=== PATIENT | female | born 1940 | race Caucasian/White ===

== ENCOUNTER 2016-08-04 10:21 | Emergency (ER) | payer MEDICARE ==
[~2016-08-04 10:21] MED LIST: ASCO100089 PO; ATEN25TA PO; CALC500T61 PO; CHOL2000 PO; CRAN1CAP3 PO; ENZY1CAP PO; FEXO-43 PO; FLUT16SP2 NS; HYDR-3825 PO; INSU100I13 SUBQ; KTC2C15 TP; LACT1CAP65 PO; MAGN27TA2 PO; METF500T PO; MULT-36 PO; NYST15CR TP; OMEP20CA11 PO; SUCR1TAB PO; VITA1TAB17 PO
[2016-08-04 10:23] VITALS: BP 142/92; PULSE 75; RESP 16; O2SAT 99
--- NOTE | 2016-08-04 10:59 | ED.REPORT ---
HPI-General Illness Date of Service Aug 04, 2016 ED Provider: Divine Hutton MD 76 year old female presents to the ER brought in by her granddaughter due to difficulty thinking and concentrating over the past week. Currently she also complains of headache. Associated symptoms include weight loss over several months, decreased appetite, decreased fluid intake, "bladder and bowel issues", insomnia in recent weeks, and depression. She reports stress due to financial issues and excessive spending. Patient denies suicidal ideation, fever, chills, and recent illness. Granddaughter reports that the patient seems to have months- long waves of depression that alternate with periods of "doing really well", with lots of energy, spending lots of money, going out regularly, making plans for the future, and socializing. Her was recently placed in a care home. Medications include but are not limited to Prozac, Metformin, and daily multivitamins. Nursing Notes Stated Complaint: BODY PAIN/EMOTIONS/MEMORY LOSS Chief Complaint: General Complaint Nursing Notes Reviewed: Yes Allergies: Coded Allergies: citalopram (Verified Allergy, Severe, SOB, DISORDERED THOUGHTS, 08/03/14) sertraline (Verified Allergy, Intermediate, STUTTERING, 08/03/14) Sulfa (Sulfonamide Antibiotics) (Verified Allergy, Unknown, 07/24/14) nitrofurantoin (Verified Allergy, Unknown, 07/24/14) Scheduled Ascorbic Acid (Vitamin C) 1,000 Mg Tab.chew 1 TAB PO DAILY Atenolol (Atenolol) 25 Mg Tablet 25 MG PO DAILY Calcium Carbonate (Calcium) 500 Mg Tablet 500 MG PO BID Cholecalciferol (Vitamin D3) (Vitamin D) 2,000 Unit Capsule 2,000 UNIT PO DAILY Cranberry Conc/Ascorbic Acid (Cranberry 12,600 mg Softgel) 1 Each Capsule 1 EACH PO DAILY Enzymes,Digestive (Enzyme Digest) 1 Each Capsule 1 EACH PO TIDWM Fexofenadine (Aller-Fex) 180 Mg Tablet 180 MG PO DAILY Fluticasone Propionate (Flonase Nasal) 16 Gm Plummer.susp 2 SPRAYS NS DAILY Insulin Glargine (Lantus U100 Solostar Insulin Pen) 100 Unit/1 Ml Insuln.pen 40 UNIT SUBQ QPM-INSULIN Ketoconazole (Ketoconazole) 15 Gm Cream..g. 15 GM TP BID Lactobacillus Acidophilus (Probiotic) 1 Each Capsule 1 EACH PO DAILY Magnesium Amino Acid Chelate (Magnesium) 27 Mg Tablet 1 TAB PO DAILY Metformin (Glucophage) 500 Mg Tablet 500 MG PO BIDWM Multivitamin (Daily Multiple Vitamin) 1 Each Tablet 1 EACH PO DAILY Nystatin/Triamcin (Nystatin-Triamcinolone Cream) 15 Gm Cream..g. 15 GM TP BID Omeprazole (Omeprazole) 20 Mg Capsule.dr 20 MG PO BID Sucralfate (Sucralfate) 1 Gm Tablet 1 GM PO QID Vitamin B Complex (Vitamin B Complex) 1 Each Tablet 1 EACH PO DAILY Scheduled PRN Hydrocodone-Acetaminophen 7.5-325 mg (Hydrocodone-Acetaminophen 7.5-325 mg) 1 Each Tablet 1 EACH PO Q6 PRN PRN For Pain General Time Seen by MD: 10:37 Chief Complaint Other (Difficulty Thinking/Concentrating) Hx Obtained From: Patient, Other family... 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 Heart murmur with reported "irregular hear beat" Diverticulitis Reports: Diabetes mellitus Past Surgical History Hernia in stomach with stomach overhang removal Uterus repair with rectal repair Reports: Appendectomy, Cholecystectomy Smoking History Former Smoker Social History Other Social History: Good social support Ambulatory Status Independent Review of Systems Full Review of Systems Constitutional: Reports: Fatigue, Malaise, Recent wt loss, Denies: Chills, Fever Respiratory: Denies: Non-productive cough Cardiovascular: Denies: Chest pain GI: Denies: Nausea, Vomiting Neurologic: Reports: Headache Psychiatric: Reports: Anxiety, Depression, Insomnia, Stress, Denies: Hallucinations, auditory, Hallucinations, visual, Homicidal ideation , Suicidal ideation Complete sys rev & neg: except as marked. Physical Exam Vital Signs Vital Signs Date Time Temp Pulse Resp B/P Pulse Ox O2 Delivery O2 Flow Rate FiO2 08/04/16 10:23 36.1 75 16 142/92 99 Initial VS: Reviewed Head / Eyes: Atraumatic, Normocephalic Neck: Supple, Non-tender, Full range of motion Abdomen / GI: Soft, Non-tender, No guarding, No rebound, No distention Extremities: Vascular intact, Neuro intact, No swelling, No tenderness Skin: Warm, Dry, No cyanosis Neurologic: Alert, Oriented, Nonfocal General/Constitutional: Awake, Alert, Well developed, Well nourished Respiratory / Chest: Breath sounds NL, No respiratory distress, No rales, No rhonchi, No wheezing Cardiovascular: Heart rate NL, Regular rhythm Heart Sounds / Murmur: Positive: Systolic murmur present.. (III/) Psychiatric: Not suicidal, Not homicidal, Cognitive function NL Abnormal Mood/Affect: Positive: Flat affect Poor eye contact. Interpretation & Diagnostics Lab Results Interpretation Result Diagram: 08/04/16 1130 08/04/16 1130 Test 08/04/16 11:30 White Blood Count 4.2th/mm3 (3.8-10.1) Red Blood Count 4.59mil/mm3 (3.90-5.20) Hemoglobin 14.5g/dL (12.0-15.6) Hematocrit 44.0% (35.0-46.0) Mean Corpuscular Volume 95.9fL (81-100) Mean Corpuscular Hemoglobin 31.6pg (27.0-35.0) Mean Corpuscular Hemoglobin Concent 33.0% (32.0-37.0) Red Cell Distribution Width 13.2% (12.3-15.4) Platelet Count 61bil/L (150-400) Neutrophils (%) (Auto) 70.2% (40-74) Lymphocytes (%) (Auto) 21.4% (14-46) Monocytes (%) (Auto) 6.9% (4-12) Eosinophils (%) (Auto) 1.0% (0-5) Basophils (%) (Auto) 0.5% (0-3) Sodium Level 139mEq/L (134-144) Potassium Level 4.2mEq/L (3.5-5.2) Chloride Level 101mEq/L (97-108) Carbon Dioxide Level 22mmol/L (18-29) Blood Urea Nitrogen 15mg/dL (8-27) Creatinine 0.46mg/dL (0.57-1.00) Estimat Glomerular Filtration Rate 190mL/min (>59) Glucose Level 178mg/dL (60-99) Calcium Level 9.6mg/dL (8.5-10.1) Total Bilirubin 0.7mg/dL (0.0-1.2) Aspartate Amino Transf (AST/SGOT) 31U/L (0-50) Alanine Aminotransferase (ALT/SGPT) 27U/L (0-32) Alkaline Phosphatase 65U/L (25-165) Total Protein 7.2g/dL (6.4-8.4) Albumin 4.4g/dL (3.4-5.0) Thyroid Stimulating Hormone (TSH) 1.600uIU/mL (0.450-4.500) Alcohols < 10mg/dL (0-10) Re-Eval/Medical Decision Source of Hx: Old records Time of Eval: 12:29 Re-Evaluation/Progress Note: Unwilling to consider admission or new medications. Will communicate this with PCP and send home with multiple resources for psychiatric care. Time of Eval: 12:41 Re-Evaluation/Progress Note: Discussed lab results and plan to discharge. Patient is amenable to the plan. Return precautions given. All other questions addressed. Counseled Regarding: Diagnosis, Lab results, Need for follow-up, When/why to return to ED Discharge & Departure Primary Impression: Depression Additional Impressions: Malaise Fatigue Impairment of cognitive function Disposition: Home Discharge Condition All VS Reviewed: Yes Condition: Stable Patient Instructions: Bipolar Disorder (DC) Additional Instructions: I'm sorry that you are feeling so down right now. Your labs were reassuring. I listening to your story, particularly the pattern of the ups with lots of money being spent followed by the downs, I believe you may be bipolar. If that is the case, you may find that medications beside (sometime in addition to) the prozac are more helpful for you. I will share my concerns and findings with Dr Muñoz. Please schedule an apt with her in the near future to follow up. If you are feeling that you need to hurt yourself or anyone else, please return to the ER. Referrals: Jevon Muñoz MD (PCP) Annemarieibjoanie Attestation Portions of this note were transcribed by Mis Woodruff. I, Dr. Hutton, personally performed the history, physical exam and medical decision-making; I reviewed and confirmed the accuracy of the information in the transcribed note. Signed by: Eulogio Genao, 08/04/2016 at 12:43 copies to: Bal,Divine Penn MD, MD Aug 04, 2016 10:59 MIS WOODRUFF Aug 04, 2016 11:02
[2016-08-04 11:47] LABS: BASOPHILS % (AUTO) 0.5 % (0-3)
[2016-08-04 11:56] LABS: MONOCYTES % (AUTO) 6.9 % (4-12); Mean Corpuscular Hemoglobin 31.6 pg (27.0-35.0); Mean Corpuscular Volume 95.9 fL (81-100); NEUTROPHILS % (AUTO) 70.2 % (40-74); Platelet Count 61 bil/L (150-400)
== END 2016-08-04 13:15 | disposition home or self-care (01) ==
LOC: SED 10:21
DX: F32.9 Major depressive disorder, single episode, unspecified (principal); R53.81 Other malaise; R53.83 Other fatigue; G31.84 Mild cognitive impairment of uncertain or unknown etiology; E11.9 Type 2 diabetes mellitus without complications; Z87.891 Personal history of nicotine dependence; Z79.4 Long term (current) use of insulin; Z79.84 Long term (current) use of oral hypoglycemic drugs; Z79.51 Long term (current) use of inhaled steroids; Z88.8 Allergy status to other drugs, medicaments and biological substances; Z88.2 Allergy status to sulfonamides

== ENCOUNTER 2017-01-06 21:45 | Inpatient (IN) | payer MEDICARE ==
[~2017-01-06] VITALS: Ht 149.9 cm; Wt 71.6 kg
[2017-01-06 21:52] VITALS: BP 124/57; PULSE 97; RESP 12; O2SAT 95
[2017-01-06 22:18] LABS: BASOPHILS % (AUTO) 0.3 % (0-3); EOSINOPHILS % (AUTO) 1.7 % (0-5); MONOCYTES % (AUTO) 7.7 % (4-12); Mean Corpuscular Hemoglobin 32.7 pg (27.0-35.0); Mean Corpuscular Volume 97.7 fL (81-100); NEUTROPHILS % (AUTO) 68.1 % (40-74); Platelet Count 96 bil/L (150-400)
[2017-01-06 23:37] LABS: INR 0.99 ratio
[2017-01-06] MEDS: HYDROmorphone 0.5 mg/0.5 mL iSecure Syringe IVPUSH PRN (23:48)
[2017-01-06] MEDS ORDERED: Insulin GLARgine 100 Unit/mL Syringe SUBQ ONE (23:50)
[2017-01-07] VITALS (11 sets, daily range): BP systolic 129–165; BP diastolic 73–93; PULSE 80–120; RESP 16–20; O2SAT 95–97
--- NOTE | 2017-01-07 00:37 | ED.REPORT ---
HPI-Extremity Problem Lower Date of Service Jan 07, 2017 ED Provider: Reinaldo Mccarty DO The pt is a 76 y/o female w/ a hx of a L hip fx, DM, arthritis, fibromyalgia, and osteoporosis presenting to the ED via EMS due to a L hip injury. The pt had "a couple" drinks, was walking and fell, and landed and hurt her L hip. Denies any dizziness, nausea, or knee pain. She did not hit her head, and did not lose consciousness. Nursing Notes Stated Complaint: GROUND LEVEL FALL Chief Complaint: L hip injury Nursing Notes Reviewed: Yes Allergies: Coded Allergies: citalopram (Verified Allergy, Severe, SOB, DISORDERED THOUGHTS, 01/06/17) sertraline (Verified Allergy, Intermediate, STUTTERING, 01/06/17) Sulfa (Sulfonamide Antibiotics) (Verified Allergy, Unknown, 01/06/17) nitrofurantoin (Verified Allergy, Unknown, 01/06/17) Scheduled Ascorbate Calcium (Vitamin C) 500 Mg Tablet 2 TAB PO DAILY Calcium Carbonate (Tums) 500 Mg Tab.chew 500 MG PO DAILY Cholecalciferol (Vitamin D3) (Vitamin D3) 2,000 Unit Tablet 2,000 UNIT PO DAILY Cranberry Conc/Ascorbic Acid (Cranberry 12,600 mg Softgel) 1 Each Capsule 1 EACH PO DAILY Fexofenadine (Aller-Fex) 180 Mg Tablet 180 MG PO DAILY Fluticasone Propionate (Fluticasone Propionate Nasal) 16 Gm Willard.susp 1 SPRAY NS DAILY Insulin Glargine (Lantus U100 Solostar Insulin Pen) 100 Unit/1 Ml Insuln.pen 40 UNIT SUBQ QPM-INSULIN Ketoconazole (Ketoconazole) 15 Gm Cream..g. 15 GM TP BID Lactobacillus Acidophilus (Probiotic) 1 Each Capsule 1 EACH PO DAILY Magnesium Amino Acid Chelate (Magnesium) 27 Mg Tablet 1 TAB PO DAILY Metformin (Glucophage) 500 Mg Tablet 500 MG PO DAILY Multivitamin (Multivitamins) 1 Each Capsule 1 EACH PO DAILY Nystatin/Triamcin (Nystatin-Triamcinolone Cream) 15 Gm Cream..g. 15 GM TP BID Omeprazole (Omeprazole) 20 Mg Capsule.dr 20 MG PO BID Pepsin/Judith/Ox Bile/Lockhart/Bet/Pap (Enzymatic Digestant ER Tablet) 1 Each Tablet.er 1 EACH PO TIDWM Sucralfate (Sucralfate) 1 Gm Tablet 1 GM PO QID Vit B Comp/C/FA/Iron/Vit E (Vitamin B Complex Tablet) 1 Each Tablet 1 EACH PO DAILY Scheduled PRN Hydrocodone-Acetaminophen 7.5-325 mg (Hydrocodone-Acetaminophen 7.5-325 mg) 1 Each Tablet 1 EACH PO Q6 PRN PRN For Pain General Time Seen by MD: 23:04 Chief Complaint Hip injury left Hx Obtained From: Patient, EMS Arrived By: Walk-in Onset Occurred: Just prior to arrival Symptom Duration: Since onset Recent Healthcare: No recent hospitalization, Recent doctor visit Similar Sx Previous: Yes Past Medical History Past Medical History UTI Hydal Hernia Fibromyalgia Arthritis Osteoporosis 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 Heart murmur with reported "irregular hear beat" Diverticulitis Reports: Diabetes mellitus Past Surgical History Hernia in stomach with stomach overhang removal Uterus repair with rectal repair L hip fx Reports: Appendectomy, Cholecystectomy Smoking History Former Smoker Social History Other Social History: Good social support Ambulatory Status Independent Review of Systems Denies knee pain; Musculoskeletal: Reports: Joint pain (L hip; ) Neurologic: Denies: Dizziness GI: Denies: Nausea Physical Exam Initial Vital Signs Vital Signs (First) Date Time Temp Pulse Resp B/P Pulse Ox O2 Delivery O2 Flow Rate FiO2 01/06/17 21:52 36.5 97 12 124/57 95 Room Air Initial VS: Reviewed General/Constitutional: Well-developed, Well-nourished Head / Eyes: Atraumatic, Normocephalic, PERRL ENT: Mucous membranes moist, Conjunctiva normal, No scleral icterus Neck: Supple, Non-tender, Full range of motion Respiratory: Breath sounds normal, Clear to auscultation, No respiratory distress Skin: Warm, Dry, No cyanosis Neurologic: Alert, Oriented, Nonfocal Psychiatric: Mood/affect normal, Behavior normal, Normal thought content Lower Extremity / Pelvis / MS: Neurologic intact, Vascular intact L leg shortened and externally rotated; Ankle / Foot: Atraumatic, Inspection NL, Full range of motion Cardiovascular: Regular rhythm, Heart sounds NL Heart Rate / Rhythm: Positive: Tachycardia Interpretation & Diagnostics CT left femur Impression: Comminuted intertrochanteric femur fracture This report was transmitted to the emergency room at 01/07/17 1:33:53 AM PDT. Lab Results Interpretation Result Diagram: 01/08/17 1815 01/08/17 0512 Test 01/06/17 22:15 Prothrombin Time 10.6sec (8.1-12.5) Prothromb Time International Ratio 0.99ratio Activated Partial Thromboplast Time 24.1sec (22.8-33.0) Alcohols < 10mg/dL (0-10) Laboratory Tests 72 Hours Test 01/06/17 22:15 White Blood Count 6.5th/mm3 (3.8-10.1) Red Blood Count 3.92mil/mm3 (3.90-5.20) Hemoglobin 12.8g/dL (12.0-15.6) Hematocrit 38.3% (35.0-46.0) Mean Corpuscular Volume 97.7fL (81-100) Mean Corpuscular Hemoglobin 32.7pg (27.0-35.0) Mean Corpuscular Hemoglobin Concent 33.4% (32.0-37.0) Red Cell Distribution Width 13.8% (12.3-15.4) Platelet Count 96bil/L (150-400) Neutrophils (%) (Auto) 68.1% (40-74) Lymphocytes (%) (Auto) 21.6% (14-46) Monocytes (%) (Auto) 7.7% (4-12) Eosinophils (%) (Auto) 1.7% (0-5) Basophils (%) (Auto) 0.3% (0-3) Prothrombin Time 10.6sec (8.1-12.5) Prothromb Time International Ratio 0.99ratio Activated Partial Thromboplast Time 24.1sec (22.8-33.0) Sodium Level 139mEq/L (134-144) Potassium Level 3.8mEq/L (3.5-5.2) Chloride Level 99mEq/L (97-108) Carbon Dioxide Level 24mmol/L (18-29) Blood Urea Nitrogen 18mg/dL (8-27) Creatinine 0.43mg/dL (0.57-1.00) Estimat Glomerular Filtration Rate 205mL/min (>59) Glucose Level 208mg/dL (60-99) Calcium Level 9.3mg/dL (8.5-10.1) Alcohols < 10mg/dL (0-10) ECG Interpretation ECG Interpretation: Sinus tachy with prob LVH Rate 105 Time: 23:41 Interpreted by: ED physician X-Ray Chest Interpretation Chest Xray Interpretation: No acute abnormality Interpretation / Wet Read by: Wet read ED physician X-Ray Interpretation X-Ray Ordered: Femur left Interpretation / Wet Read by: Wet read ED physician Interpretation: Comminuted fracture Re-Eval/Medical Decision Med Decision/Clinical Course 76-year-old female with a history of osteoporosis and intermittent alcohol use presents after a fall today while visiting her , having had a few drinks today, landing on her left side with immediate pain and inability to ambulate. Alcohol level is 0 here. X-ray followed by CT scan shows a comminuted intertrochanteric hip fracture on left side. Patient did not hit her head and denies loss of consciousness. I spoke with Dr. Tran in orthopedics will see the patient in the morning. Patient will be admitted to the hospital service for preoperative clearance and management of her current chronic medical issues , including diabetes. Pain was controlled here with Dilaudid. Source of Hx: Old records Re-Evaluation/Progress #1: Time of Eval: 23:44 Re-Evaluation/Progress Note: Told the pt plan to call surgeon. She prefers Dr. Overton Re-Evaluation/Progress #2: Time of Eval: 01:21 Re-Evaluation/Progress Note: Pt rechecked. Informed pt of need for admission. Pt understands and agrees with plan for admission. All questions addressed. Consultation #1: Referral / Consult Name: Luciano Tran MD Consulted With: Orthopedic Call Returned at: 00:24 Note: Spoke w/ Dr. Tran who will see the pt tomorrow. Consultation #2: Referral / Consult Name: Suyapa Parada DO Consulted With: Hospitalist Call Returned at: 00:32 It Coordinator: Will see patient, Agrees with eval, Agrees with plan, Accepts admit Counseled Regarding: Diagnosis, Lab results, Need for admission Discharge & Departure Impression: Primary Impression: Hip fracture, left Encounter type: initial encounter Fracture type: closed Qualified Code: S72.002A - Fracture of unspecified part of neck of left femur, initial encounter for closed fracture Additional Impressions: Fall from ground level Thrombocytopenia Osteoporosis Osteoporosis type: age-related Presence of current pathological fracture: with current pathological fracture Encounter type: initial encounter Qualified Code: M80.00XA - Age-related osteoporosis with current pathological fracture, unspecified site, initial encounter for fracture Hyperglycemia Disposition: ADMITTED TO HOSPITAL Discharge Condition All VS Reviewed: Yes Condition: Stable Referrals: Jevon Muñoz MD (PCP) Scribe Attestation Portions of this note were transcribed by Eddie Barillas. I, Dr. Mccarty personally performed the history, physical exam and medical decision-making; I reviewed and confirmed the accuracy of the information in the transcribed note. copies to: Jevon Muñoz MD, Gary R DO Jan 07, 2017 00:37 Crystal Xiao Jan 07, 2017 00:40 Eddie Barillas Jan 07, 2017 01:15
[2017-01-07] MEDS: HYDROmorphone 0.5 mg/0.5 mL iSecure Syringe IVPUSH PRN ×6 (01:50→23:05)
[2017-01-07] MEDS ORDERED: Polyethylene Glycol (PEG) 17 Gm Powder PO PRN (01:55)
[2017-01-07] MEDS ORDERED: Alum-Mag Hydrox-Simeth 30 mL Suspension PO PRN (01:55)
[2017-01-07] MEDS ORDERED: Ondansetron 2 mg/mL 2 mL Inj IVPUSH PRN (01:55)
--- NOTE | 2017-01-07 02:40 | PCM.HPMED ---
Subjective Date of Service Jan 07, 2017 Primary Provider: Admitting Physician: Primary Care Physician: Jevon Muñoz MD Attending Physician: Chief Complaint: Left hip pain History of Present Illness: Patient is a 76-year-old female with a history of osteoporosis, arthritis, left hip fracture, and fibromyalgia who presents with left hip pain following a ground-level fall. She currently lives in an adult living facility and was visiting her today when she slipped and fell on the pavement and landed on her left hip. She reports severe left hip pain but denies any other symptoms. She denies any head injury or loss of consciousness. She denies any dizziness or weakness directly prior to the fall. She states she has a couple of drinks every 1-2 days and had 2 drinks today, but states that she does not drink heavily on a regular basis. She denies any numbness or tingling, dizziness, nausea or vomiting. In the ED, heart rate was 109, respiratory rate 20, BP 141/81. Platelets 96, glucose 208. Alcohol level <10. Left hip x-ray noted a left hip fracture. Review of Systems: Comprehensive review of systems conducted and was negative except for the pertinent positives listed above. Allergies Coded Allergies: citalopram (Verified Allergy, Severe, SOB, DISORDERED THOUGHTS, 01/06/17) sertraline (Verified Allergy, Intermediate, STUTTERING, 01/06/17) Sulfa (Sulfonamide Antibiotics) (Verified Allergy, Unknown, 01/06/17) nitrofurantoin (Verified Allergy, Unknown, 01/06/17) Home Medications Atenolol 25 mg daily Hydrocodone/APAP 7.5/325 q6h PRN Lantus 40 U qhs SQ Ketoconazole cream 15 g BID Metformin 500 mg BID Omeprazole 20 mg BID Sucralfate 1 g QID Calcium carbonate 500 mg BID Vit D3 2000 U daily PMH UTI Hiatall Hernia Fibromyalgia Arthritis Osteoporosis Oral leukoplakia Heart murmur with reported "irregular hear beat" Diverticulitis Diabetes mellitus Surgical History Hernia in stomach with stomach overhang removal Uterus repair with rectal repair Appendectomy Cholecystectomy Family History Mother: Osteoporosis, of [place] in her 60s Social History Hx Alcohol Use: Yes Hx Tobacco Use: No Smoking Status: Former Smoker Exam Vital Signs Vital Sign - Last Date Time Temp Pulse Resp B/P Pulse Ox O2 Delivery O2 Flow Rate FiO2 01/06/17 21:52 36.5 97 12 124/57 95 Room Air Exam General: Alert, somnolent but arousable, No acute distress Head: Normocephalic, atraumatic. External ears normal. Eyes: PERRLA, EOMI. Anicteric sclerae. Mouth: Mouth normal, Mucous membranes moist/pink Neck: Neck supple with full range of motion. Chest& Lungs: Clear to auscultation bilaterally with no crackles, wheezes, or rhonchi. Cardiovascular: Regular rate/rhythm, Normal S1, Normal S2, No murmurs/rubs/ gallops Abdomen: Non-tender, Non-distended, No masses, Normoactive bowel tones, Soft Musculoskeletal: Left hip tenderness Skin: Rash at left groin Extremities: No cyanosis/clubbing/edema bilaterally Neurological: Grossly neurologically intact. Normal speech Lab and Diagnostics Result Diagram: 01/06/17221401/06/172214 Assessment & Plan Patient is a 76-year-old female with a history of osteoporosis, arthritis, left hip fracture, and fibromyalgia who presents with left hip pain following a ground-level fall. Admitted for left hip fracture. Left hip fracture, acute. Present on admission. - In the context of a history of osteoporosis and prior left hip fracture. Dr. Tran is aware and will see pt in the AM. Patient was ambulatory at baseline. She has a history of diabetes mellitus and a heart murmur. EKG was normal. Chest x-ray is normal. Nuclear stress test in 2008 was normal. She is likely low to low-moderate cardiovascular risk. Appropriate to proceed with surgery at this time. - Dr. Tran of orthopedic surgery is following. We appreciate her expertise. - Dilaudid 0.5 mg q6h PRN - DVT prophylaxis: SCDs. May transition to heparin following surgery. Ground level fall. - Per patient history this appears to be a mechanical ground-level fall. No head trauma, or history suspicious for syncope. - Physical therapy ordered Osteoporosis, chronic. - In the context of 2 left hip fractures. She will likely require further outpatient workup and management. - Continue vitamin D and calcium - Outpatient follow up Diabetes mellitus type 2 - BG 200 on admission. HbA1c 6.1 on 11/24/16. - Lantus 20 U (half dose) while NPO - Hold metformin Thrombocytopenia, chronic - Pt has at least 6 year history of platelets in 90s-100s based on EMR. - Continue to monitor GERD - Protonix 20 mg daily - Bowel regimen as needed - Antiemetic as needed Patient is admitted under inpatient status with expected length of stay greater than 2 midnights due to severity of presenting symptoms, risk of adverse event, and complexity of treatment plan. Attending Statement The patient was seen and examined together with house staff on 01/07/2017 and I agree with the history, exam and plan as outlined in the note above. Ronan Saleh Jan 07, 2017 00:37 Suyapa Parada DO Jan 07, 2017 06:49
[2017-01-07] MEDS ORDERED: CALC500T9 PO (03:17)
[2017-01-07] MEDS ORDERED: CHOL200025 PO (03:17)
[2017-01-07] MEDS ORDERED: FLUT16SP NS (03:23)
[2017-01-07] MEDS ORDERED: VIT1TABL83 PO (03:23)
[2017-01-07] MEDS ORDERED: MULT1CAP33 PO (03:23)
[2017-01-07] MEDS ORDERED: ASCO-294 PO (03:23)
[2017-01-07] MEDS ORDERED: PEPS1TAB11 PO (03:23)
--- NOTE | 2017-01-07 03:24 | NUR ---
Admission Pt interviewed at the bedside. Admission assessment, screening, and Med-Rec completed.
[2017-01-07 03:25] LABS: APPEARANCE,URINE HAZY (CLEAR,HAZY); COLOR,URINE YELLOW (YELLOW); OCCULT BLOOD,URINE NEGATIVE (NEGATIVE); UROBILINOGEN,URINE NORMAL (NORMAL)
--- NOTE | 2017-01-07 06:04 | NUR ---
Blood Sugar Per report from ER nurse patient blood sugar 299, 20 units of Lantus given. Recheck at 0401 patient at 309, MD anaya, recheck at 0603 patient blood glucose at 292.
--- NOTE | 2017-01-07 06:06 | NUR ---
Shift: Patient pain managed with IV pain medications. Resting with eyes closed, chest rising and falling. NPO status, HR 120, no fluids running blood glucose at 309, paged. No tele. Bed in lowest and locked position, call light within reach, will continue to monitor.
[2017-01-07 06:14] LABS: BASOPHILS % (AUTO) 0.2 % (0-3); EOSINOPHILS % (AUTO) 0.2 % (0-5); MONOCYTES % (AUTO) 6.5 % (4-12); Mean Corpuscular Hemoglobin 31.9 pg (27.0-35.0); Mean Corpuscular Volume 97.8 fL (81-100); NEUTROPHILS % (AUTO) 81.1 % (40-74); Platelet Count 67 bil/L (150-400)
--- NOTE | 2017-01-07 07:29 | DRSVH ---
PROCEDURE: X-RAY LEFT HIP COMPLETE, MINIMUM TWO VIEWS ([id number]) INDICATIONS: fall TECHNIQUE: 2 views of the hip were acquired. COMPARISON: [facility], CR, XR PELVIS 1 OR 2VW, 04/06/2015, 14:06. FINDINGS: Bones: There is a moderately displaced comminuted intertrochanteric left hip fracture. No suspicious bony lesions. The visualized pelvic ring appears intact. Soft tissues: No suspicious soft tissue calcifications or masses. IMPRESSION: Left hip fracture as above. Dictated by: Reyna Gracia M.D. on 01/07/2017 at 7:27 Approved by: Reyna Gracia M.D. on 01/07/2017 at 7:27
--- NOTE | 2017-01-07 07:32 | DRSVH ---
PROCEDURE: X-RAY CHEST ONE VIEW, PORTABLE ([id number]) INDICATIONS: preop, fall TECHNIQUE: One view of the chest was acquired. COMPARISON: [facility], , CHEST 2VW, 07/17/2012, 11:42. FINDINGS: Surgical changes and devices: None. Lungs and pleura: No pleural effusions or pneumothorax. Lungs are clear. Mediastinum: Mediastinal contours appear normal. Heart size is normal. Bones and chest wall: No suspicious bony lesions. Overlying soft tissues appear unremarkable. IMPRESSION: No acute process. Dictated by: Reyna Gracia M.D. on 01/07/2017 at 7:30 Approved by: Reyna Gracia M.D. on 01/07/2017 at 7:30
--- NOTE | 2017-01-07 08:08 | DRSVH ---
PROCEDURE: CT LOWER EXTREMITY LEFT WITHOUT CONTRAST INDICATIONS: L hip fx TECHNIQUE: Noncontrast 3 mm axial sections acquired through the bony pelvis. Additional 3 mm axial sections acq uired through the symptomatic hip joint, with coronal and sagittal reformats. COMPARISON: None. FINDINGS: Image quality: Excellent. Bones: There is a moderately displaced and moderately angulated comminuted fracture of the left inter trochanteric femur. Soft tissues: Visualized bowel loops grossly unremarkable. No focal fluid collections. IMPRESSION: Intertrochanteric hip fracture. Concordant with preliminary interpretation. Dictated by: Reyna Gracia M.D. on 01/07/2017 at 8:05 Approved by: Reyna Gracia M.D. on 01/07/2017 at 8:06
[2017-01-07] MEDS: Calcium Carbonate (Oyster Shell) 500 mg Tablet PO SCH ×2 (08:34→20:57)
[2017-01-07] MEDS: Pantoprazole 20 mg ER24 Tablet PO SCH (08:35)
[2017-01-07] MEDS: Insulin Human REGular 300 Unit/3 mL Inj SUBQ SCH ×3 (08:37→21:03)
--- NOTE | 2017-01-07 09:59 | DRSVH ---
PROCEDURE: X-RAY LEFT FEMUR, TWO VIEWS ([id number]) INDICATIONS: HIP FRACTURE TECHNIQUE: 2 views of the femur were acquired. COMPARISON: [facility], CR, XR HIP 2VW LT, 01/06/2017, 22:13. FINDINGS: Bones: A moderately displaced comminuted intertrochanteric fracture present , as before. No suspiciou s bony lesions. Soft tissues: No suspicious soft tissue calcifications or masses. IMPRESSION: No change in left intertrochanteric hip fracture. Dictated by: Reyna Gracia M.D. on 01/07/2017 at 9:57 Approved by: Reyna Gracia M.D. on 01/07/2017 at 9:58
--- NOTE | 2017-01-07 10:00 | DRSVH ---
PROCEDURE: X-RAY PELVIS W/LAT HIP (LT) ([id number]) INDICATIONS: hip fracture TECHNIQUE: AP pelvis with lateral view(s) of the left hip(s). COMPARISON: [facility], , XR HIP 2VW LT, 01/06/2017, 22:13. FINDINGS: Bones: A moderately displaced comminuted left intertrochanteric hip fracture is present , as before. Pelvic ring appears intact. No suspicious bony lesions. Soft tissues: The visualized bowel gas pattern is normal. No suspicious soft tissue calcifications. IMPRESSION: No change in left intertrochanteric hip fracture. Dictated by: Reyna Gracia M.D. on 01/07/2017 at 9:58 Approved by: Reyna Gracia M.D. on 01/07/2017 at 9:59
--- NOTE | 2017-01-07 10:34 | CONS ---
[address] [address] CONSULTATION REPORT PATIENT: JASON VEGA : 1940 MR#: [id number] ADMIT: 01/07/2017 JOB ID: [id number] DATE OF SERVICE: 01/07/2017 CPT CODE: In-house consultation 10952-50 with decision for surgery. CHIEF COMPLAINT: A 76-year-old female with history of insulin-dependent diabetes and osteoporosis who was [facility] last night, tripped on the cement walkway, and sustained a comminuted left intertrochanteric femoral fracture. There was no obvious loss of consciousness. ALLERGIES: Include: 1. CITALOPRAM. 2. SERTRALINE. 3. SULFA. 4. NITROFURANTOIN. CURRENT MEDICATIONS: Include: 1. Atenolol. 2. Hydrocodone. 3. Lantus insulin. 4. Ketoconazole. 5. Metformin. 6. Omeprazole. 7. Sulcralfate. 8. Calcium carbonate. 9. Vitamin D3. PAST MEDICAL HISTORY: Medical history positive for UTI, hiatal hernia, fibromyalgia, arthritis, osteoporosis, oral leukoplakia, history of cardiac murmur reported in the past, an irregular heart beat, diverticulitis, and insulin-dependent diabetes. Prior surgeries she has had some type of hiatal hernia surgery, uterine repair with rectal repair, appendectomy, and cholecystectomy. FAMILY HISTORY: Positive for osteoporosis and DC. SOCIAL HISTORY: The patient does drink. She was a former smoker. REVIEW OF SYSTEMS: HEENT: No significant change in hearing or vision. Respiratory no shortness of breath. Cardiovascular no acute chest pain. GI no nausea, vomiting. no dysuria. Musculoskeletal left hip pain with intertrochanteric femoral fracture. Psychiatric no anxiety or depression. Hematologic no easy bleeding or bruising. The patient appears to have some short-term memory deficit. PHYSICAL EXAMINATION: Height 149 cm, 69 kg. The patient appears to be alert and oriented, but she does state that she has short-term memory issues. She is pleasant. Temperature 36.9, pulse 111, respiration 18, blood pressure 164/89, pulse ox 97. The patient is lying in bed. Left leg is shortened and externally rotated. Calf is soft. No skin abrasions noted. Motor and sensory intact in all extremities. LABORATORY TESTING: Admission H and H was 12.8 and 38.3, repeated this morning with a hemoglobin 11.6 and hematocrit 35.6. Platelet count on admission was 96,000. It is now down to 67,000 that will need to be improved prior to surgery. Electrolytes this morning: Sodium 135, potassium 4.0, chloride 100, CO2 of 21, BUN 15, creatinine 0.32. Glucose early this morning was 329 and repeated again at 280. Liver function tests within normal limits. PT 10.6, INR 0.99. Urinalysis 0-5 white cells, pH is 7, specific gravity 1.025. IMAGING: X-rays show that she has a comminuted left intertrochanteric femoral fracture with significant osteoporosis around the intertrochanteric line. Chest x-ray report showed no acute processes. CT of the hip was also performed showing the comminution. She has multiple clips in the pelvis from her prior uterine surgery. IMPRESSION: 1. Comminuted left intertrochanteric femoral fracture. 2. Hyperglycemia with insulin-dependent diabetes. 3. Thrombocytopenia. 4. History of cardiac murmur and possible history of some irregular rhythm. PLAN: The patient will need a cardiac echo. I have discussed this with the hospitalist. Depending on the cardiac echo she may need a Cardiology consult as well. We also need to improve her platelets prior to proceeding with the surgery. She will need to have repeat CBC with diff in the morning as well as repeat electrolytes. I have explained the risks and benefits of surgery to the patient. She will require a locked intramedullary nancy for treatment of the left intertrochanteric femoral fracture. I have explained the risks for bleeding, infection, pain, and stiffness, possibility for damage to surrounding neurovascular structures. There is a potential for delayed union, nonunion, malunion, and hardware failure. There is also potential for DVT, pulmonary emboli, DC, stroke, and significant cardiopulmonary event. Surgical consent has been signed. The patient is also consented for transfusion if needed and disposal of any biologic tissue. PLAN: The patient will not be cleared for surgery today. She may be cleared for surgery tomorrow pending on cardiac echo as well as repeat laboratory testing. Cc: [facility] NISHANT
[2017-01-07] MEDS: HYDROcodone-APAP 5-325 mg Tablet PO PRN ×3 (14:18→21:34)
--- NOTE | 2017-01-07 14:51 | DRSVH ---
[facility] [address] [place] [address] Echocardiogram Report Name: JASON VEGA LStudy Date: 01/07/2017 Height: 59 in Hospital Exam Location: [facility] Weight: 152 lb Gender: Female BSA: 1.6 m2 : 1940 Age: 76 yrs BP: 130/ 82 mmHg Reason For Study: MURMUR Ordering Physician: HOSPITALIST [facility] Performed By: Krista Gustafson Referring Physician: Malcolm Vanessa Interpretation Summary The left ventricle is normal in size, wall thickness, and systolic function without any obvious focal wall motion abnormalities with the ejection fraction grossly estimated to be 55-60%. The right ventricle is normal in size and function. Pulmonary artery pressures cannot be estimated because of the lack of a measurable TR jet velocity but the IVC suggests a low right atrial pressure of 3 mm Hg. The left atrium is severely dilated while right atrial size is normal. The aortic valve is moderately calcified with probable mild aortic stenosis with a mean gradient of 11 mmHg. There is no other significant valvular heart disease. Procedure: A two-dimensional transthoracic echocardiogram with color flow and Doppler was performed. The study quality was technically adequate. There is no prior echocardiogram noted for this patient. The patient was in normal sinus rhythm during the exam. Left Ventricle: The left ventricle is normal in size, wall thickness, and systolic function without any focal wall motion abnormalities. The ejection fraction is estimated to be 55-60%. Diastolic function could not be accurately assessed due to tachycardia. Right Ventricle: The right ventricle is normal in size and function. Atria: The left atrium is severely dilated. Right atrial size is normal. There is no Doppler evidence for an interatrial shunt. Mitral Valve: There is moderate mitral annular calcification. There is mild calcification extending into the subvalvular apparatus. The mitral valve leaflets appear mildly thickened, but open well. There is trace mitral regurgitation. Aortic Valve: The aortic valve is not well visualized. The aortic valve is moderately calcified. Leaflet mobility is mild to moderately reduced. There is mild aortic stenosis. The calculated aortic valve area is 1.4 cm2. The peak aortic velocity is 2.2 m/sec. The aortic valve mean gradient is 11 mmHg. There is trace aortic regurgitation. Tricuspid Valve: The tricuspid valve is normal. There is trace tricuspid regurgitation. Pulmonary artery pressures cannot be estimated because of the lack of a measurable TR jet velocity. Pulmonic Valve: The pulmonic valve is not well visualized. There is a trace or physiologic amount of pulmonic regurgitation. There is no other significant valvular heart disease. Great Vessels: The aortic root is normal size. The ascending aorta could not be visualized. The aortic arch is normal in size. The IVC is of normal diameter and collapses greater than 50% with a sniff. This suggests a low right atrial pressure of 3 mm Hg. Pericardium/ Pleura There is no pericardial effusion. There is no pleural effusion. MMode/2D Measurements & Calculations LVIDd: 4.5 cm LVIDs: 3.1 cm LA A2 area: 25.5 cm FS: 32.0 % LA A4 area: 27.8 cm IVSd: 1.0 cm LA length (vol): 5.5 cm LVPWd: 1.0 cm LA vol: 109.8 ml LA vol index: 66.8 ml/m IVC diam: 1.5 cm RA long axis: 4.9 cm LVOT diam: 2.1 cm RA area: 14.8 cm AoV Openin.1 cm RA vol: 38.2 ml Ao root diam: 3.1 cm RA : 23.3 ml/m2 Ao Arch Diam (Prox Trans): 2.9 cm LV kim. diameter/BSA (cm/m^2): 2.8 LV sys. diameter/BSA (cm/m^2): 1.9 RVD1 (basal): 3.5 cm RVD2 (mid): 2.7 cm TAPSE: 2.2 cm Doppler Measurements & Calculations Ao V2 max: 223.5 cm/sec MV E max adiel: 136.3 cm/sec Ao max P.0 mmHg Ao mean P.4 mmHg LVOT Max Adiel: 89.0 cm/sec SHERITA(I,D): 1.4 cm sev ratio: 0.41 Med Peak E' Adiel: 9.6 cm/sec TR max adiel: 239.5 cm/sec E/E' med: 14.3 TR max P.0 mmHg Lat Peak E' Adiel: 15.0 cm/sec PA V2 max: 83.4 cm/sec E/E' lat: 9.1 PA mean P.4 mmHg E/e' average: 11.7 Ao V2 mean: 160.0 cm/sec LV V1 max P.2 mmHg Ao V2 VTI: 40.6 cm LV V1 VTI: 16.6 cm SHERITA(V,D): 1.3 cm2 PA V2 mean: 55.5 cm/sec SHERITA indexed to BSA (cm^2/m^2): 0.82 PA pr(Accel): 42.2 mmHg Reading Physician:02:50 PM
--- NOTE | 2017-01-07 18:42 | NUR ---
Pain- Patient complaining of left hip pain. Dilaudid IV given for break through pain when Vicodin not effective. Patient stated that she has "short term memory loss." Has been appropriate with calling for her needs. Tele- sinus rhythm with frequent PVC's. Asymptomatic.
[2017-01-07] MEDS: diphenhydrAMINE-Zinc 2%-0.1% 30 Gm Cream TOPICAL PRN (20:57)
[2017-01-08] VITALS (14 sets, daily range): BP systolic 118–147; BP diastolic 57–89; PULSE 68–89; RESP 14–18; O2SAT 91–98
[2017-01-08] MEDS: Insulin Human REGular 300 Unit/3 mL Inj SUBQ SCH ×5 (02:30→23:18)
[2017-01-08] MEDS ORDERED: HYDROmorphone 1 mg/mL Inj IVPUSH PRN (04:12)
--- NOTE | 2017-01-08 04:25 | NUR ---
Activity/pain Pt has been on tele, SR 80s per nuclear monitoring technician. Pt using Vicodin and Dilaudid to keep pain under control at beginning of shift. Pt made NPO at midnight, so now just using 0.5mg IV Dilaudid for pain management. Pt reports adequate relief. Pt has patent cook with clear urine draining. Pt complaint of itchy legs, paged and ordered Benadryl cream and this was applied to skin. Pt helpful with turns in bed. Pt has been appropriate with call light.
[2017-01-08 05:36] LABS: BASOPHILS % (AUTO) 0.1 % (0-3); EOSINOPHILS % (AUTO) 1.3 % (0-5); MONOCYTES % (AUTO) 11.1 % (4-12); Mean Corpuscular Hemoglobin 32.2 pg (27.0-35.0); Mean Corpuscular Volume 97.1 fL (81-100); NEUTROPHILS % (AUTO) 74.7 % (40-74); Platelet Count 73 bil/L (150-400)
[2017-01-08] MEDS ORDERED: CeFAZolin Inj 2 GM in IV Premix 1 EACH IV ONE (06:00)
[2017-01-08] MEDS ORDERED: diphenhydrAMINE 25 mg Capsule PO ONE (07:30)
[2017-01-08] MEDS: Calcium Carbonate (Oyster Shell) 500 mg Tablet PO SCH ×2 (07:50→20:01)
[2017-01-08] MEDS: Pantoprazole 20 mg ER24 Tablet PO SCH (07:57)
[2017-01-08] MEDS: HYDROcodone-APAP 5-325 mg Tablet PO PRN ×3 (07:59→19:59)
[2017-01-08] MEDS: diphenhydrAMINE-Zinc 2%-0.1% 30 Gm Cream TOPICAL PRN ×2 (08:02→13:29)
[2017-01-08] MEDS: 0.9% Sodium Chloride 250 ML IV SCH (11:20)
--- NOTE | 2017-01-08 11:38 | NUR ---
[facility]: Patient's lives at [facility] and patient has called [facility] already to let them know that she is here and has a hip fx. Updated MODEL [employer]KER
[2017-01-08] MEDS ORDERED: Dextrose 10% 250 ML IV PRN (11:50)
--- NOTE | 2017-01-08 15:25 | NUR ---
Platelets 2 units of platelets transfused today as ordered. Infusion slowed as patient spiked low-grade fever, MD aware, additional 325mg of Tylenol given at start of 2nd unit. Lab notified of delay so platelet levels could be drawn at 1830. Plan for her to go to surgery tomorrow if her platelets rebound with this transfusion. Consent in chart for surgery and blood.
--- NOTE | 2017-01-08 15:59 | PCM.PNMED ---
Subjective Date of Service Jan 08, 2017 Subjective Patient has no new complaints today. She is anxious to get surgery completed. Exam Vital Signs Vital Sign - Last Date Time Temp Pulse Resp B/P Pulse Ox O2 Delivery O2 Flow Rate FiO2 01/08/17 15:24 36.7 77 16 123/74 01/08/17 12:26 96 Room Air Intake and Output 01/07/17 01/07/17 01/08/17 Cumulative From/Thru 15:00 23:00 07:00 01/06/17 21:52 - 01/08/17 04:35 Intake Total 250 ml 300 ml 550 ml Output Total 500 ml 750 ml 1800 ml Balance -250 ml -450 ml -1250 ml Intake Oral 250 ml 300 ml 550 ml Output Urine Total 500 ml 750 ml 1800 ml # Bowel Movements 0 0 Exam Constitutional: Elderly female in no acute distress Head: Normocephalic atraumatic Chest: Clear to auscultation Cor: Regular rate and rhythm S1-S2 with 2/6 systolic ejection murmur Abdomen: Soft nontender bowel sounds present Extremities: No edema currently rotated left leg : Neuro alert and oriented 3, motor strength is intact bilaterally Lab and Diagnostics Laboratory Tests 72 Hours Test 01/06/17 22:15 01/07/17 02:30 01/07/17 05:40 01/07/17 08:30 White Blood Count 6.5th/mm3 (3.8-10.1) 6.3th/mm3 (3.8-10.1) Red Blood Count 3.92mil/mm3 (3.90-5.20) 3.64mil/mm3 (3.90-5.20) Hemoglobin 12.8g/dL (12.0-15.6) 11.6g/dL (12.0-15.6) Hematocrit 38.3% (35.0-46.0) 35.6% (35.0-46.0) Mean Corpuscular Volume 97.7fL (81-100) 97.8fL (81-100) Mean Corpuscular Hemoglobin 32.7pg (27.0-35.0) 31.9pg (27.0-35.0) Mean Corpuscular Hemoglobin Concent 33.4% (32.0-37.0) 32.6% (32.0-37.0) Red Cell Distribution Width 13.8% (12.3-15.4) 13.6% (12.3-15.4) Platelet Count 96bil/L (150-400) 67bil/L (150-400) Neutrophils (%) (Auto) 68.1% (40-74) 81.1% (40-74) Lymphocytes (%) (Auto) 21.6% (14-46) 11.5% (14-46) Monocytes (%) (Auto) 7.7% (4-12) 6.5% (4-12) Eosinophils (%) (Auto) 1.7% (0-5) 0.2% (0-5) Basophils (%) (Auto) 0.3% (0-3) 0.2% (0-3) Prothrombin Time 10.6sec (8.1-12.5) Prothromb Time International Ratio 0.99ratio Activated Partial Thromboplast Time 24.1sec (22.8-33.0) Sodium Level 139mEq/L (134-144) 137mEq/L (134-144) 135mEq/L (134-144) Potassium Level 3.8mEq/L (3.5-5.2) 3.9mEq/L (3.5-5.2) 4.0mEq/L (3.5-5.2) Chloride Level 99mEq/L (97-108) 100mEq/L (97-108) 100mEq/L (97-108) Carbon Dioxide Level 24mmol/L (18-29) 22mmol/L (18-29) 21mmol/L (18-29) Blood Urea Nitrogen 18mg/dL (8-27) 16mg/dL (8-27) 15mg/dL (8-27) Creatinine 0.43mg/dL (0.57-1.00) 0.42mg/dL (0.57-1.00) 0.32mg/dL (0.57-1.00) Estimat Glomerular Filtration Rate 205mL/min (>59) 211mL/min (>59) 288mL/min (>59) Glucose Level 208mg/dL (60-99) 329mg/dL (60-99) 280mg/dL (60-99) Calcium Level 9.3mg/dL (8.5-10.1) 9.1mg/dL (8.5-10.1) 8.9mg/dL (8.5-10.1) Alcohols < 10mg/dL (0-10) Urine Color Yellow (YELLOW) Urine Appearance Hazy (CLEAR,HAZY) Urine pH 7.0 (5.0-8.0) Urine Specific High View 1.025 (1.003-1.035) Urine Protein Negativemg/dL (NEG,TRACE) Urine Glucose (UA) 1000mg/dL (NEGATIVE) Urine Ketones Negativemg/dL (NEGATIVE) Urine Occult Blood Negative (NEGATIVE) Urine Nitrite Negative (NEGATIVE) Urine Bilirubin Negative (NEGATIVE) Urine Urobilinogen Normalmg/dL (NORMAL) Urine Leukocyte Esterase Negative (NEGATIVE) Urine RBC 0-2/hpf (0-2) Urine WBC 0-5/hpf (0-5) Urine Epithelial Cells Few/hpf (NONE-MOD) Urine Crystals None seen (NONE SEEN) Urine Bacteria None/hpf (NONE-FEW) Urine Hyaline Casts Rare/lpf (NONE) Urine Granular Casts None seen (NONE SEEN) Urine Waxy Casts None seen (NONE SEEN) Urine Red Blood Cell Casts None seen (NONE SEEN) Urine White Blood Cell Casts None seen (NONE SEEN) Urine Mucus Present (None Seen) Urine Trichomonas None seen (NONE SEEN) Urine Yeast None (NONE SEEN) Urinalysis Comment None Urine Culture Reflexed Not indicated Total Bilirubin 0.6mg/dL (0.0-1.2) 0.7mg/dL (0.0-1.2) Aspartate Amino Transf (AST/SGOT) 28U/L (0-50) 28U/L (0-50) Alanine Aminotransferase (ALT/SGPT) 27U/L (0-32) 26U/L (0-32) Alkaline Phosphatase 92U/L (25-165) 85U/L (25-165) Total Protein 6.7g/dL (6.4-8.4) 6.5g/dL (6.4-8.4) Albumin 4.1g/dL (3.4-5.0) 4.1g/dL (3.4-5.0) Hemoglobin A1c 6.4% (4.8-5.6) Test 01/08/17 05:12 White Blood Count 7.9th/mm3 (3.8-10.1) Red Blood Count 3.48mil/mm3 (3.90-5.20) Hemoglobin 11.2g/dL (12.0-15.6) Hematocrit 33.8% (35.0-46.0) Mean Corpuscular Volume 97.1fL (81-100) Mean Corpuscular Hemoglobin 32.2pg (27.0-35.0) Mean Corpuscular Hemoglobin Concent 33.1% (32.0-37.0) Red Cell Distribution Width 13.5% (12.3-15.4) Platelet Count 73bil/L (150-400) Neutrophils (%) (Auto) 74.7% (40-74) Lymphocytes (%) (Auto) 12.5% (14-46) Monocytes (%) (Auto) 11.1% (4-12) Eosinophils (%) (Auto) 1.3% (0-5) Basophils (%) (Auto) 0.1% (0-3) Sodium Level 136mEq/L (134-144) Potassium Level 3.6mEq/L (3.5-5.2) Chloride Level 96mEq/L (97-108) Carbon Dioxide Level 24mmol/L (18-29) Blood Urea Nitrogen 15mg/dL (8-27) Creatinine 0.34mg/dL (0.57-1.00) Estimat Glomerular Filtration Rate 269mL/min (>59) Glucose Level 210mg/dL (60-99) Calcium Level 8.7mg/dL (8.5-10.1) Magnesium Level 1.6mg/dL (1.6-2.6) Total Bilirubin 0.9mg/dL (0.0-1.2) Aspartate Amino Transf (AST/SGOT) 20U/L (0-50) Alanine Aminotransferase (ALT/SGPT) 21U/L (0-32) Alkaline Phosphatase 79U/L (25-165) Total Protein 6.2g/dL (6.4-8.4) Albumin 3.8g/dL (3.4-5.0) Result Diagram: 01/08/1712 01/08/17 0512 X-Rays, CTs and MRIs PROCEDURE: CT LOWER EXTREMITY LEFT WITHOUT CONTRAST INDICATIONS: L hip fx TECHNIQUE: Noncontrast 3 mm axial sections acquired through the bony pelvis. Additional 3 mm axial sections acquired through the symptomatic hip joint, with coronal and sagittal reformats. COMPARISON: None. FINDINGS: Image quality: Excellent. Bones: There is a moderately displaced and moderately angulated comminuted fracture of the left intertrochanteric femur. Soft tissues: Visualized bowel loops grossly unremarkable. No focal fluid collections. IMPRESSION: Intertrochanteric hip fracture. Concordant with preliminary interpretation. Dictated by: Reyna Gracia M.D. on 01/07/2017 at 8:05 Approved by: Reyna Gracia M.D. on 01/07/2017 at 8:06 PROCEDURE: X-RAY CHEST ONE VIEW, PORTABLE ([id number]) INDICATIONS: preop, fall TECHNIQUE: One view of the chest was acquired. COMPARISON: [facility], , CHEST 2VW, 07/17/2012, 11:42. FINDINGS: Surgical changes and devices: None. Lungs and pleura: No pleural effusions or pneumothorax. Lungs are clear. Mediastinum: Mediastinal contours appear normal. Heart size is normal. Bones and chest wall: No suspicious bony lesions. Overlying soft tissues appear unremarkable. IMPRESSION: No acute process. Dictated by: Reyna Gracia M.D. on 01/07/2017 at 7:30 Approved by: Reyna Gracia M.D. on 01/07/2017 at 7:30 Assessment & Plan Patient is a 76-year-old female with a history of osteoporosis, arthritis, left hip fracture, and fibromyalgia who presents with left hip pain following a ground-level fall. Admitted for left hip fracture. Left hip fracture, acute. Present on admission. - In the context of a history of osteoporosis and prior left hip fracture. Dr. Tran is aware and will see pt in the AM. Patient was ambulatory at baseline. She has a history of diabetes mellitus and a heart murmur. EKG was normal. Chest x-ray is normal. Nuclear stress test in 2008 was normal. She is likely low to low-moderate cardiovascular risk. Appropriate to proceed with surgery at this time. - Dr. Tran of orthopedic surgery is following. We appreciate her expertise. - Dilaudid 0.5 mg q6h PRN - DVT prophylaxis: SCDs. We will avoid subcutaneous anticoagulation prophylactically given relatively low platelet count -Echocardiogram does reveal some mild aortic stenosis please see report above -With regards to her chronic thrombocytopenia did speak with hematology oncology , Dr. Rose, who recommends transfusing 2 units of platelets and recheck in 3 hour posttransfusion level if this does increase then recheck a.m. and if drops consider re-transfusion prior to the OR tomorrow -And if there is no bump in the platelet level consider steroids for immune thrombocytopenia.prior to surgery Osteoporosis, chronic. - In the context of 2 left hip fractures. She will likely require further outpatient workup and management. - Continue vitamin D and calcium - Outpatient follow up Diabetes mellitus type 2 -We will check 4 times a day blood sugars -Hold metformin -Coverage subcutaneous insulin protocol Thrombocytopenia, chronic - Pt has at least 6 year history of platelets in 90s-100s based on EMR. - Plan as listed above per Dr. Rose, hematology/oncology GERD - Protonix 20 mg daily - Bowel regimen as needed - Antiemetic as needed Patient is admitted under inpatient status with expected length of stay greater than 2 midnights due to severity of presenting symptoms, risk of adverse event, and complexity of treatment plan. Pain Evaluation: Adequate Pain Control VTE Mechanical Devices: Intermittant Pneumatic CD Time spent 30 minutes Michelle Reynolds MD Jan 08, 2017 15:58
--- NOTE | 2017-01-08 23:55 | PROG NOTE ---
[address] [address] PROGRESS NOTE PATIENT: JASON VEGA : 1940 MR#: [id number] ADMIT: 01/07/2017 JOB ID: [id number] DATE: CPT CODE IN House Consult follow-up CPT 83106 SUBJECTIVE: The patient has a comminuted left intertrochanteric femoral fracture. Surgery had to be postponed today since the patient did have a low platelet count. Evidently, she has had problems with low platelets in the past. Dr. Reynolds consulted Hematology and they had suggested that she be transfused with platelets today, and then recheck her platelet count today, and again check her tomorrow to see if she needs additional platelets. The patient's initial platelet count went from 96,000 to 67,000. It then enid to 73,000 and after transfusion of platelets was 125,000, still low but markedly improved. Hemoglobin 11.2, hematocrit 33.8. The patient also had a cardiac echo. Ejection fraction was 55% to 60%. The patient was also tachycardic. Right and left ventricles were noted to be normal in size. The aortic valve was calcified with probable mild aortic stenosis. IMPRESSION: Comminuted left intertrochanteric femoral fracture. PLAN: The patient will require open reduction and internal fixation of the fracture. Due to time constraints with clinic and current [facility] Training I will not be available to accommodate the patient for surgical intervention tomorrow. Dr. Antoni Miller, one of my associates, however, will have time to accommodate the patient for surgery, and will plan open reduction and internal fixation of her comminuted left intertrochanteric femoral fracture tomorrow afternoon. cc- [facility] cc: Luciano Tran M.D. NISHANT
[2017-01-09] VITALS (15 sets, daily range): BP systolic 126–171; BP diastolic 66–91; PULSE 74–87; RESP 12–18; O2SAT 94–98
[2017-01-09] MEDS: HYDROcodone-APAP 5-325 mg Tablet PO PRN ×2 (00:22→19:47)
[2017-01-09] MEDS: HYDROmorphone 1 mg/mL Inj IVPUSH PRN ×6 (01:56→23:52)
[2017-01-09 03:09] LABS: Thyroxine (T4) 7.5 ug/dL (4.5-12.0)
--- NOTE | 2017-01-09 05:35 | NUR ---
Pain/activity Pt reporting increased pain to left hip 12/31 and has been taking 1 tab of Oxly and O.5mg Dilaudid for breakthrough pain. Pt tried to have BM on bedpan but reported that it was too painful. Brief placed on pt instead and pt has been trying to have BM with no success so far but reports that she is passing lots of gas and "should have one soon" Pt made NPO at midnight. SCDs are on.
[2017-01-09 06:13] LABS: BASOPHILS % (AUTO) 0.3 % (0-3); EOSINOPHILS % (AUTO) 1.7 % (0-5); MONOCYTES % (AUTO) 11.5 % (4-12); Mean Corpuscular Volume 96.2 fL (81-100); NEUTROPHILS % (AUTO) 67.5 % (40-74); Platelet Count 117 bil/L (150-400)
[2017-01-09] MEDS: Insulin Human REGular 300 Unit/3 mL Inj SUBQ SCH ×4 (07:30→23:14)
--- NOTE | 2017-01-09 07:54 | PCM.PNORTH ---
Subjective Date of Service: Jan 09, 2017 Visit Information: Reason for Visit Left Hip Fracture Surgery/Surgery Date Post-Op Day # Date of Admission: Jan 07, 2017 at 00:49 Hospital Day # Subjective Patient is 2 days status post left intertrochanteric hip fracture. She fell while visiting her Cassidy Rogers. She has been nonambulatory since the fall and was hospitalized immediately after. Dr. Tran was originally seeing the patient and had her scheduled for surgery but unfortunately her platelets were too low, secondary to a chronic condition, for her to be stable for surgery for the first [address] Tran was unable to get to the patient for another few days due to the delay and thus discussed with me to transfer over the care. I saw and examined the patient and discussed with her that I will be taking over her care. She has been comfortable in bed but is anxious to get the surgery complete and go on with her rehabilitation. Her only complaint is of left hip pain. She denies any paresthesias. She denies any other associated symptoms or injuries. Objective Exam Objective Gen - alert, NAD Ext - there are no open wounds, abrasions or swelling There is ecchymosis to the left hip The left lower extremity is externally rotated but not shortened Intact sensation throughout the left lower extremity Palpable dorsalis pedis and posterior tibial pulses are equal bilaterally No tenderness palpation to the knee or ankle Range of motion of the knee reproduces pain to the left hip + dorsiflexion and plantarflexion of the ankle Vital Signs and I/O Vital Sign - Last Date Time Temp Pulse Resp B/P Pulse Ox O2 Delivery O2 Flow Rate FiO2 01/09/17 04:40 36.6 82 17 129/74 95 Room Air Intake and Output 01/08/17 01/08/17 01/09/17 Cumulative From/Thru 14:59 22:59 06:59 01/06/17 21:52 - 01/09/17 05:39 Intake Total 228 ml 1060 ml 636 ml 2474 ml Output Total 450 ml 1050 ml 3300 ml Balance 228 ml 610 ml -414 ml -826 ml Intake Oral 800 ml 636 ml 1986 ml Platelets 228 ml 260 ml 488 ml Output Urine Total 450 ml 1050 ml 3300 ml # Bowel Movements 0 0 0 Lab & Micro Results Laboratory Tests Test 01/08/17 18:15 01/09/17 05:27 Platelet Count 125bil/L (150-400) 117bil/L (150-400) White Blood Count 7.1th/mm3 (3.8-10.1) Red Blood Count 3.70mil/mm3 (3.90-5.20) Hemoglobin 12.2g/dL (12.0-15.6) Hematocrit 35.6% (35.0-46.0) Mean Corpuscular Volume 96.2fL (81-100) Mean Corpuscular Hemoglobin 33.0pg (27.0-35.0) Mean Corpuscular Hemoglobin Concent 34.3% (32.0-37.0) Red Cell Distribution Width 13.6% (12.3-15.4) Neutrophils (%) (Auto) 67.5% (40-74) Lymphocytes (%) (Auto) 18.4% (14-46) Monocytes (%) (Auto) 11.5% (4-12) Eosinophils (%) (Auto) 1.7% (0-5) Basophils (%) (Auto) 0.3% (0-3) Sodium Level 138mEq/L (134-144) Potassium Level 3.8mEq/L (3.5-5.2) Chloride Level 98mEq/L (97-108) Carbon Dioxide Level 25mmol/L (18-29) Blood Urea Nitrogen 16mg/dL (8-27) Creatinine 0.38mg/dL (0.57-1.00) Estimat Glomerular Filtration Rate 236mL/min (>59) Glucose Level 167mg/dL (60-99) Calcium Level 8.8mg/dL (8.5-10.1) Total Bilirubin 0.6mg/dL (0.0-1.2) Aspartate Amino Transf (AST/SGOT) 18U/L (0-50) Alanine Aminotransferase (ALT/SGPT) 19U/L (0-32) Alkaline Phosphatase 86U/L (25-165) Total Protein 6.3g/dL (6.4-8.4) Albumin 3.8g/dL (3.4-5.0) Result Diagram: 01/09/1752601/09/17526 Assessment & Plan Impression Left intertrochanteric hip fracture Problems: Plan We discussed the risks, benefits, alternatives and indications to proceed with a open treatment of the left hip intertrochanteric hip fracture with an intramedullary nail. She understood the risks include but are not limited to neurovascular injury, tendon injury, infection, failure of fixation, stiffness, persistent pain, all which may require further intervention. Per review of the patient's platelets, with the recent infusion yesterday, her platelet level has gone up but decreased slightly this morning. Per hematology it was recommended that if there was any decrease for her to receive another infusion prior to surgery. Surgery is planned for this late afternoon at 4 which should give sufficient time for her to receive another transfusion of platelets. Following surgery patient will likely be in the hospital for 3 days and then can either be discharged home with home health versus a rehabilitation center versus snf facility pending her progress with formal physical therapy. The patient states she is determined to do well while in the hospital as she would like to go home with home health. She was planning on moving to [place] in January but we discussed that it would be better for her to postpone the move until at least February until she can proceed further with recovery. Patient had all questions answered and consent was signed and placed in the chart. Antoni Miller DO Jan 09, 2017 07:54
--- NOTE | 2017-01-09 08:17 | PCM.PNMED ---
Subjective Date of Service Jan 09, 2017 Subjective Patient seen and examined. Pain is controlled. Vitals stable. Exam Vital Signs Vital Sign - Last Date Time Temp Pulse Resp B/P Pulse Ox O2 Delivery O2 Flow Rate FiO2 01/09/17 08:03 36.9 83 14 126/79 94 Room Air Intake and Output 01/08/17 01/08/17 01/09/17 Cumulative From/Thru 15:00 23:00 07:00 01/06/17 21:52 - 01/09/17 05:39 Intake Total 228 ml 1060 ml 636 ml 2474 ml Output Total 450 ml 1050 ml 3300 ml Balance 228 ml 610 ml -414 ml -826 ml Intake Oral 800 ml 636 ml 1986 ml Platelets 228 ml 260 ml 488 ml Output Urine Total 450 ml 1050 ml 3300 ml # Bowel Movements 0 0 0 Exam Constitutional: Elderly female in no acute distress Head: Normocephalic atraumatic Chest: Clear to auscultation Cor: Regular rate and rhythm S1-S2 with 2/6 systolic ejection murmur Abdomen: Soft nontender bowel sounds present Extremities: No edema currently rotated left leg : Neuro alert and oriented 3, motor strength is intact bilaterally Lab and Diagnostics Result Diagram: 01/09/1752601/09/17526 X-Rays, CTs and MRIs PROCEDURE: CT LOWER EXTREMITY LEFT WITHOUT CONTRAST INDICATIONS: L hip fx TECHNIQUE: Noncontrast 3 mm axial sections acquired through the bony pelvis. Additional 3 mm axial sections acquired through the symptomatic hip joint, with coronal and sagittal reformats. COMPARISON: None. FINDINGS: Image quality: Excellent. Bones: There is a moderately displaced and moderately angulated comminuted fracture of the left intertrochanteric femur. Soft tissues: Visualized bowel loops grossly unremarkable. No focal fluid collections. IMPRESSION: Intertrochanteric hip fracture. Concordant with preliminary interpretation. Dictated by: Reyna Gracia M.D. on 01/07/2017 at 8:05 Approved by: Reyna Gracia M.D. on 01/07/2017 at 8:06 PROCEDURE: X-RAY CHEST ONE VIEW, PORTABLE ([id number]) INDICATIONS: preop, fall TECHNIQUE: One view of the chest was acquired. COMPARISON: [facility], , CHEST 2VW, 07/17/2012, 11:42. FINDINGS: Surgical changes and devices: None. Lungs and pleura: No pleural effusions or pneumothorax. Lungs are clear. Mediastinum: Mediastinal contours appear normal. Heart size is normal. Bones and chest wall: No suspicious bony lesions. Overlying soft tissues appear unremarkable. IMPRESSION: No acute process. Dictated by: Reyna Gracia M.D. on 01/07/2017 at 7:30 Approved by: Reyna Gracia M.D. on 01/07/2017 at 7:30 Assessment & Plan Patient is a 76-year-old female with a history of osteoporosis, arthritis, left hip fracture, and fibromyalgia who presents with left hip pain following a ground-level fall. Admitted for left hip fracture. Left hip fracture, acute. Present on admission. - Surgery today - Dilaudid 0.5 mg q4h PRN - DVT prophylaxis: SCDs. We will avoid subcutaneous anticoagulation prophylactically given relatively low platelet count -Echocardiogram does reveal some mild aortic stenosis please see report above -With regards to her chronic thrombocytopenia did speak with hematology oncology , Dr. Rose, who recommends transfusing 2 units of platelets and recheck in 3 hour posttransfusion level if this does increase then recheck a.m. and if drops consider re-transfusion prior to the OR today - scheduled to have surgery at 4pm, will give platelets this morning/afternoon Osteoporosis, chronic. - In the context of 2 left hip fractures. She will likely require further outpatient workup and management. - Continue vitamin D and calcium - Outpatient follow up Diabetes mellitus type 2 -We will check 4 times a day blood sugars -Hold metformin -Coverage subcutaneous insulin protocol Thrombocytopenia, chronic - Pt has at least 6 year history of platelets in 90s-100s based on EMR. - Plan as listed above per Dr. Rose, hematology/oncology above GERD - Protonix 20 mg daily - Bowel regimen as needed - Antiemetic as needed Patient is admitted under inpatient status with expected length of stay greater than 2 midnights due to severity of presenting symptoms, risk of adverse event, and complexity of treatment plan. VTE Mechanical Devices: Intermittant Pneumatic CD Time spent 35 mins Tim Borrero MD Jan 09, 2017 08:17
[2017-01-09] MEDS: Calcium Carbonate (Oyster Shell) 500 mg Tablet PO SCH ×2 (08:30→21:14)
[2017-01-09] MEDS: Pantoprazole 20 mg ER24 Tablet PO SCH (08:39)
[2017-01-09] MEDS: CeFAZolin Inj 2 GM in IV Premix 1 EACH IV SCH ×2 (08:40→10:11)
[2017-01-09] MEDS ORDERED: Vasopressin 20 Unit/mL Inj ONE (08:59)
[2017-01-09] MEDS ORDERED: Phenylephrine/NS 100 mCg/mL 10 mL Syringe IVPUSH ONE (08:59)
[2017-01-09] MEDS ORDERED: Propofol 10,000 mCg/mL 20 mL Inj ONE (08:59)
[2017-01-09] MEDS ORDERED: fentaNYL-PF 50 mCg/mL 2 mL Inj ONE (08:59)
[2017-01-09] MEDS ORDERED: EPHEDrine/NS 5 mg/mL 5 mL Syringe ONE (08:59)
[2017-01-09] MEDS: 0.9% Sodium Chloride 250 ML IV SCH (11:25)
--- NOTE | 2017-01-09 11:33 | NUR ---
USP TRANSFER : Gave access and faxed facesheet to Cass[facility] Roegrs per PAINT DIPPER and MD orders.
--- NOTE | 2017-01-09 15:24 | NUR ---
Social Work: Initial Assessment/Multidisciplinary Rounds D: EMR reviewed. Please see Initial Assessment linked to this note for more information. Pt is a 76 year old female admitted [place] with a readmit risk score of 3 for left hip fracture per H&P. Pt's insurance is [facility] and [employer]. PCP was formerly Jevon Muñoz, pt has switched to Norma Quan. Pt discussed in multidisciplinary rounds, pt to OR today. SNF order is acknowledged. PT to evaluate pt post-operatively. SW met with pt at bedside to conduct initial assessment. Pt was alert and oriented x3. SW explained role and wrote phone number on white board. SW provided [facility] Discharge Planning Checklist and encouraged pt to contact SW for any discharge planning questions. Pt lives in an apartment at [facility] in [place] with elevator access. Pt is independent with all ADLs at baseline. Pt uses a walker at baseline. Pt is in the process of moving to [place] in February to be closer to family. Pt does not drive. Pt has HH history in [place], company unknown. Pt has no SNF history as a patient but her is currently LTC at [facility]. Pt has no LTC and may have VA benefits through her . Pt has no DPOA on file, has never completed this for herself. SW encouraged this and pt is agreeable but did not want the paperwork right now. Yesterday pt requested that she discharge to [facility] and [facility] made referral to [facility] to facilitate this request. Today, pt is adamant that she wants to return home and that her friend Tala will stay with her and assist her at home. Discussed the need for PT to evaluate patient prior to plans. Of note, pt has history of a major depressive episode with suicidal ideation approximately 5 months ago stemming from some emotional stressors and a diagnosis of bipolar disorder. Pt denies any current suicidality with no intention or plan at this time. Pt is stable on Prozac at this time and pt's mental health diagnosis does not negatively impact her participation in care at this time. Pt reports that after her depressive episode she re-engaged in her buddhist and reduced family stress by reaching out to family that is supportive of her. Pt denies any history of inpt psychiatric hospitalization. Pt is not currently connected with a counselor, states she is going to connect with on in [place] after she moves. Pt is hopeful she will return home, but if she cannot safely do so then Admissions at [facility] has accepted pt with [facility] to follow at discharge. A: Pt who is independent at baseline and has the capacity for self-care, who may need SNF at discharge. P: Pt is hopeful she will return home, but if she cannot safely do so then Admissions at [facility] has accepted pt with [facility] to follow at discharge. PT evaluation pending operative course. DAXA Grimes Addendum: 01/09/17 at 1542 by PENNY UNDERWOOD Amended: Links added.
--- NOTE | 2017-01-09 15:49 | NUR ---
To OR Pt leaves to OR on own bed. A&OX4. IV SL. RA. Denies CP, SOB, Nausea. Pain always 5/10. Worse when moving. To OR
[2017-01-09] MEDS ORDERED: Lactated Ringer's 1,000 ML IV ONE (16:15)
[2017-01-09] MEDS ORDERED: Bupivacaine-MPF 0.25% 30 mL Inj INFILTRATE ONE (16:52)
[2017-01-09] MEDS ORDERED: Lactated Ringer's 1,000 ML IV SCH (17:09)
[2017-01-09] MEDS ORDERED: Lactated Ringer's 500 ML IV PRN (17:09)
[2017-01-09] MEDS ORDERED: Dexamethasone 4 mg/mL Inj IVPUSH PRN (17:10)
[2017-01-09] MEDS ORDERED: Ondansetron 2 mg/mL 2 mL Inj IVPUSH PRN (17:10)
[2017-01-09] MEDS ORDERED: EPHEDrine Sulfate 50 mg/mL Inj IVPUSH PRN (17:10)
[2017-01-09] MEDS ORDERED: MetoCLOpramide 5 mg/mL 2 mL Inj IVPUSH PRN (17:10)
[2017-01-09] MEDS ORDERED: Phenylephrine 10,000 mCg/mL Inj IVPUSH PRN (17:10)
--- NOTE | 2017-01-09 17:21 | PCM.HPANE ---
Patient Data Date of Service: Jan 09, 2017 Surgeon Admitting Provider:Suyapa Parada DO Attending Provider:Tim Borrero MD Primary Care Physician:Jevon Muñoz MD Other Provider: Reason for Visit Left Hip Fracture LEFT HIP FRACTURE Ht/WT & BMI Height (Feet): 4 Height (Inches): 11 Weight (Kilograms): 71.200 Body Mass Index Allergies Coded Allergies: citalopram (Verified Allergy, Severe, SOB, DISORDERED THOUGHTS, 01/06/17) sertraline (Verified Allergy, Intermediate, STUTTERING, 01/06/17) Sulfa (Sulfonamide Antibiotics) (Verified Allergy, Unknown, 01/06/17) nitrofurantoin (Verified Allergy, Unknown, 01/06/17) Past Anesthesia History Anesthesia History: Positive for:: Abnormal Airway (DEONDRE), Denies:: Anesthesia Reactions, Difficult Intubation, Fam Anesthesia Reaction , Fam Malignant Hypertherm, Malignant Hyperthermia Diabetes History Hx Diabetes?: Yes (Type 2) Type of Diabetes: Type II Glycemic Control: Insulin Dependent Current Bedside Blood Glucose: 203 MRSA MRSA: No Medications Hypertension Medication: Yes Home Meds Incl Beta Michael: Yes Date Beta Michael Taken: Jan 09, 2017 Time Beta Michael Taken: 08:00 Previous Beta Michael Dose >24: Previous Dose <24 Hours Reported Medications Vit B Comp/C/FA/Iron/Vit E (Vitamin B Complex Tablet)1 Each Tablet1 Each PO DAILY 01/07/17 Multivitamin (Multivitamins)1 Each Capsule1 Each PO DAILY 01/07/17 Fluticasone Propionate (Fluticasone Propionate Nasal)16 Gm [place].susp1 [place] NS DAILY #16 GM Ref 0 01/07/17 Pepsin/Judith/Ox Bile/Lockhart/Bet/Pap (Enzymatic Digestant ER Tablet)1 Each Tablet.er1 Each PO TIDWM 01/07/17 Ascorbate Calcium (Vitamin C)500 Mg Tablet2 Tab PO DAILY 01/07/17 Cholecalciferol (Vitamin D3) (Vitamin D3)2,000 Unit Tablet2,000 Unit PO DAILY 01/07/17 Calcium Carbonate (Tums)500 Mg Tab.xgof729 Mg PO DAILY 30 Days 01/07/17 Sucralfate 1 Gm Tablet1 Gm PO QID 30 Days Ref 0 08/04/14 Magnesium Amino Acid Chelate (Magnesium)27 Mg Tablet1 Tab PO DAILY 08/03/14 Metformin (Glucophage)500 Mg Tqgevm273 Mg PO DAILY 30 Days Ref 0 08/03/14 Lactobacillus Acidophilus (Probiotic)1 Each Capsule1 Each PO DAILY 07/24/14 Omeprazole 20 Mg Capsule.dr20 Mg PO BID 30 Days Ref 0 07/24/14 Nystatin/Triamcin (Nystatin-Triamcinolone Cream)15 Gm Cream..g.15 Gm TP BID 07/24/14 Insulin Glargine (Lantus U100 Solostar Insulin Pen)100 Unit/1 Ml Insuln.pen40 Unit SUBQ QPM-INSULIN #1 PENINJ Ref 0 07/24/14 Ketoconazole 15 Gm Cream..g.15 Gm TP BID 07/24/14 Hydrocodone-Acetaminophen 7.5-325 mg 1 Each Tablet1 Each PO Q6 PRN For Pain Ref 0 07/24/14 Cranberry Conc/Ascorbic Acid (Cranberry 12,600 mg Softgel)1 Each Capsule1 Each PO DAILY 07/24/14 Fexofenadine (Aller-Fex)180 Mg Mwvpbm287 Mg PO DAILY 07/24/14 Discontinued Reported Medications Cholecalciferol (Vitamin D3) (Vitamin D)2,000 Unit Capsule2,000 Unit PO DAILY 30 Days Ref 0 08/03/14 Calcium Carbonate (Calcium)500 Mg Moemwf881 Mg PO BID 07/24/14 Atenolol 25 Mg Qepnzw61 Mg PO DAILY #30 TABLET Ref 0 07/24/14 History History of ENT Problems?: No HEENT History: Positive for:: Abnormal Airway (DEONDRE) Denies:: Difficult Intubation Dysphagia Hearing Problem Denture Type: Full- Upper Full- Lower Teeth Condition: No Teeth Hx of Heart Problems?: Yes Cardiovascular History: Positive for:: Heart Murmur Irregular Heartbeat Denies:: AICD Atrial Fibrillation Cardiac Surgery Chest Pain Congestive Heart Failure Edema Hypertension Pacemaker Thrombophlebitis Valvular Heart Disease Other Cardiac History: recent echo showing mild Hx of Respiratory Problem?: Yes Respiratory History: Positive for:: Asthma COPD Cough (WITH ALLERGIES ) Denies:: Dyspnea Emphysema Hemoptysis Pneumonia Tuberculosis Hx Neurologic Problems?: Yes Neurological History: Positive for:: Headaches Denies:: Alzheimer's Disease CVA Dementia Parkinson's Disease Seizures Hx of GI Problems?: Yes Other GI Pertinent History: multiple abdominal hernias Hx of Problems?: Yes Genitourinary History: Positive for:: Urinary Tract Infection Female Hx: Denies:: Currently Endometriosis Pelvic Inflammatory Problems with Breasts? Hx Musculoskeletal Problems?: Yes Musculoskeletal History: Positive for:: Musculoskeletal Trauma (Falls) Denies:: Back Injury Joint Replacement Hx of Psycho/Social Problems?: No Psycho Social History: Denies:: Anxiety Hx Depression Hx Surgeries?: Yes (Appy, silver, hernia, stomach, tics, AP repair, hyster) Hx Any Other Health Problems?: Yes Other History: Denies:: Cancer History Blood Transfusions: Positive for:: Accept Blood Products? Denies:: Blood Transfusions Hx Diabetes: Yes (Type 2)Bedside Blood Glucose: 203 Other Pertinent History: Oral leukoplakia Hx Alcohol Use: Yes Smoking Status: Former Smoker Stop/Bang Treated for Sleep Apnea?: Yes Do You Have a CPAP Machine?: Yes S-Snoring: Do You Snore Loudly: Yes T-Tired: feel tired, fatigued: Yes O-Obsered: Observed not breath: No P-Blood Pressure: treated: Yes B- Body Mass Index > 35 kg/m2: No A- Age over 50: Yes N- Neck Large Circumference: No G- Gender Male: No DEONDRE Total Score: 3 DEONDRE Category 1: Yes Risk Assessment Category Category 1A: Patient has history of documented sleep apnea, and HAS NOT received any narcotic, sedative or anesthesia administration during this stay. Category 1B: Patient has history of documented sleep apnea, and HAS received any narcotic , sedative or anesthesia administration during this stay Category 2: Patient has SUSPECTED Obstructive Sleep Apnea, and HAS received any narcotic , sedative or anesthesia administration during this stay. Category 3: Patient has SUSPECTED Obstructive Sleep Apnea and HAS NOT received narcotic, sedative or anesthesia administration during this stay. Category 4: Outpatient in Procedural Areas with known sleep apnea or who screen positive for High Risk via the STOP/BANG questionnaire. Exam Exam Vital Signs Vital Signs Date Time Temp Pulse Resp B/P Pulse Ox O2 Delivery O2 Flow Rate FiO2 01/09/17 13:49 36.7 85 14 161/91 01/09/17 13:07 36.9 78 14 147/85 01/09/17 12:45 36.9 82 14 157/87 01/09/17 12:05 36.8 74 14 143/85 01/09/17 11:40 37.1 76 14 153/87 01/09/17 11:20 36.8 78 12 152/79 01/09/17 10:49 86 General Appearance: Alert, Oriented X3, Cooperative HEENT/AIRWAY: MP 2 Lungs: Clear to Auscultation Heart: Exam Unremarkable Meds/Labs/Diagnostics Admission Meds Current Medications Cefazolin Sodium/ Dextrose 2 gm/ Premix 50 ml @ 100 mls/hr PREOP IV Last administered on 01/09/17 10:11; Start 01/09/17 at 06:00; Stop 01/09/17 at 17:00 ; Status DC Lactated Ringer's (Lr) 1,000 ml @ ud STK-MED ONCE IV Last administered on 01/09 16:15; Start 01/09/17 at 16:15; Stop 01/09/17 at 16:57; Status DC Cefazolin Sodium (Ancef Inj) 2 gm STK-MED ONCE IVPUSH Last administered on 01/09 16:42; Start 01/09/17 at 16:42; Stop 01/09/17 at 16:57; Status DC Bedside Blood Glucose: 203 Labs Test 01/06/17 22:15 01/07/17 02:30 01/07/17 08:30 01/08/17 05:12 Prothrombin Time 10.6sec (8.1-12.5) Prothromb Time International Ratio 0.99ratio Activated Partial Thromboplast Time 24.1sec (22.8-33.0) Alcohols < 10mg/dL (0-10) Urine Color Yellow (YELLOW) Urine Appearance Hazy (CLEAR,HAZY) Urine pH 7.0 (5.0-8.0) Urine Specific [place] 1.025 (1.003-1.035) Urine Protein Negativemg/dL (NEG,TRACE) Urine Glucose (UA) 1000mg/dL (NEGATIVE) Urine Ketones Negativemg/dL (NEGATIVE) Urine Occult Blood Negative (NEGATIVE) Urine Nitrite Negative (NEGATIVE) Urine Bilirubin Negative (NEGATIVE) Urine Urobilinogen Normalmg/dL (NORMAL) Urine Leukocyte Esterase Negative (NEGATIVE) Urine RBC 0-2/hpf (0-2) Urine WBC 0-5/hpf (0-5) Urine Epithelial Cells Few/hpf (NONE-MOD) Urine Crystals None seen (NONE SEEN) Urine Bacteria None/hpf (NONE-FEW) Urine Hyaline Casts Rare/lpf (NONE) Urine Granular Casts None seen (NONE SEEN) Urine Waxy Casts None seen (NONE SEEN) Urine Red Blood Cell Casts None seen (NONE SEEN) Urine White Blood Cell Casts None seen (NONE SEEN) Urine Mucus Present (None Seen) Urine Trichomonas None seen (NONE SEEN) Urine Yeast None (NONE SEEN) Urinalysis Comment None Urine Culture Reflexed Not indicated Hemoglobin A1c 6.4% (4.8-5.6) Thyroid Stimulating Hormone (TSH) 1.500uIU/mL (0.450-4.500) Free Thyroxine Index 2.0 (1.2-4.9) Thyroxine (T4) 7.5ug/dL (4.5-12.0) Triiodothyronine (T3) Uptake 26% (24-39) Magnesium Level 1.6mg/dL (1.6-2.6) Test 01/09/17 05:27 White Blood Count 7.1th/mm3 (3.8-10.1) Red Blood Count 3.70mil/mm3 (3.90-5.20) Hemoglobin 12.2g/dL (12.0-15.6) Hematocrit 35.6% (35.0-46.0) Mean Corpuscular Volume 96.2fL (81-100) Mean Corpuscular Hemoglobin 33.0pg (27.0-35.0) Mean Corpuscular Hemoglobin Concent 34.3% (32.0-37.0) Red Cell Distribution Width 13.6% (12.3-15.4) Platelet Count 117bil/L (150-400) Neutrophils (%) (Auto) 67.5% (40-74) Lymphocytes (%) (Auto) 18.4% (14-46) Monocytes (%) (Auto) 11.5% (4-12) Eosinophils (%) (Auto) 1.7% (0-5) Basophils (%) (Auto) 0.3% (0-3) Sodium Level 138mEq/L (134-144) Potassium Level 3.8mEq/L (3.5-5.2) Chloride Level 98mEq/L (97-108) Carbon Dioxide Level 25mmol/L (18-29) Blood Urea Nitrogen 16mg/dL (8-27) Creatinine 0.38mg/dL (0.57-1.00) Estimat Glomerular Filtration Rate 236mL/min (>59) Glucose Level 167mg/dL (60-99) Calcium Level 8.8mg/dL (8.5-10.1) Total Bilirubin 0.6mg/dL (0.0-1.2) Aspartate Amino Transf (AST/SGOT) 18U/L (0-50) Alanine Aminotransferase (ALT/SGPT) 19U/L (0-32) Alkaline Phosphatase 86U/L (25-165) Total Protein 6.3g/dL (6.4-8.4) Albumin 3.8g/dL (3.4-5.0) Plan Impression Patient chart reviewed, patient interviewed and anesthestic plan with risks, benefits, and alternatives discussed, and informed consent obtained. NPO per Anesth. Guidelines: Yes ASA Physical Status: ASA3 Severe Disease Anesthetic Plan: GA Bene/Risks/Altern/Consents: Yes HP Complete Prior to Induction: Yes Mode Coelho MD Jan 09, 2017 17:21
[2017-01-09] MEDS ORDERED: Magnesium Hydroxide 10 mL Oral Concentration PO PRN (18:00)
[2017-01-09] MEDS ORDERED: Sodium Biphos-Phos 133 mL Enema RECTAL PRN (18:00)
[2017-01-09] MEDS ORDERED: diphenhydrAMINE 25 mg Capsule PO PRN (18:00)
[2017-01-09] MEDS ORDERED: Polyethylene Glycol (PEG) 17 Gm Powder PO PRN (18:00)
[2017-01-09] MEDS: fentaNYL-PF 50 mCg/mL 2 mL Inj IVPUSH PRN ×2 (18:20→18:31)
--- NOTE | 2017-01-09 19:00 | NUR ---
POSTOP Pt returns from PACU @ 1900 via bed. 2L NC, IV SL, Dsg C/D/I left hip ABD bulky dressing. All sensation in tact. A&OX4 although forgetful at times. SCDs in use. Urena patent and draining to gravity. Care continues; report passed onto night nurse.
--- NOTE | 2017-01-09 19:31 | PCM.ANEP1 ---
Post Anesthesia PACU Phase 1 Assessment Vital Signs Vital Signs Date Time Temp Pulse Resp B/P Pulse Ox O2 Delivery O2 Flow Rate FiO2 01/09/17 18:38 83 15 151/66 98 Nasal Cannula 2 01/09/17 18:32 82 17 157/71 98 Nasal Cannula 2 01/09/17 18:20 84 15 171/88 98 Nasal Cannula 2 01/09/17 18:16 80 12 159/76 98 Nasal Cannula 2 01/09/17 17:59 36.0 87 18 169/78 98 Nasal Cannula 2 01/09/17 13:49 36.7 85 14 161/91 01/09/17 13:07 36.9 78 14 147/85 01/09/17 12:45 36.9 82 14 157/87 01/09/17 12:05 36.8 74 14 143/85 01/09/17 11:40 37.1 76 14 153/87 Anesthetic Administered: GA Level of Alertness: Awake, talking Pain: No Nausea or Vomiting: No CV Function & Hydration Stable: Yes Airway Device: Oxygen Delivery: Nasal Cannula Lungs: Clear to Auscultation PACU Phase 2 Assessment Patient Instructions Provided: N/A Mode Coelho MD Jan 09, 2017 19:31
[2017-01-09] MEDS: Senna-Docusate 8.6-50 mg Tablet PO SCH (21:14)
[2017-01-10] VITALS (7 sets, daily range): BP systolic 101–121; BP diastolic 44–73; PULSE 62–94; RESP 16–18; O2SAT 90–98
[2017-01-10] MEDS: CeFAZolin Inj 2 GM in IV Premix 1 EACH IV SCH ×2 (00:24→09:25)
[2017-01-10] MEDS: Sodium Chloride LOK Flush 10 mL Syringe IV SCH ×3 (01:20→18:31)
--- NOTE | 2017-01-10 03:51 | NUR ---
Pain/Diet Patient is alert and oriented. At start of shift, patient stated she was hungry. After blood sugar check, patient given sugar-free jello, chicken soup, and frozen chicken meal - Diet tolerated well. Patient reported pain as 10/10. Pain managed by alternating [place] and Dilaudid. Patient now reports pain at a tolerable level and is resting comfortably. Patient assisted onto bed felix and had a small, formed BM. Urena cath patent and draining to gravity. Bed down, rails up, call light in reach. Care continues. Addendum: 01/10/17 at 0404 by SHAWNEE ROBIN RN Patient's dressing on left hip is clean/dry/intact.
[2017-01-10] MEDS: HYDROmorphone 1 mg/mL Inj IVPUSH PRN ×3 (04:40→20:15)
[2017-01-10 06:00] LABS: BASOPHILS % (AUTO) 0.1 % (0-3); EOSINOPHILS % (AUTO) 0.1 % (0-5); MONOCYTES % (AUTO) 11.1 % (4-12); Mean Corpuscular Hemoglobin 32.4 pg (27.0-35.0); Mean Corpuscular Volume 96.2 fL (81-100); NEUTROPHILS % (AUTO) 79.6 % (40-74); Platelet Count 193 bil/L (150-400)
[2017-01-10] MEDS: HYDROcodone-APAP 5-325 mg Tablet PO PRN ×3 (06:30→18:31)
[2017-01-10] MEDS: 0.9% Sodium Chloride 250 ML IV SCH (07:30)
--- NOTE | 2017-01-10 07:49 | OP ---
[address] [address] OPERATIVE REPORT PATIENT: JASON VEGA : 1940 MR#: [id number] ADMIT: 01/07/2017 JOB ID: [id number] DATE OF SURGERY: 01/09/2017 PREOPERATIVE DIAGNOSIS(ES): Left intertrochanteric hip fracture. POSTOPERATIVE DIAGNOSIS(ES): Left intertrochanteric hip fracture. PROCEDURE: Left hip intramedullary nailing secondary to an intertrochanteric hip fracture. SURGEON: Antoni Miller D.O. ANESTHESIA: General. HISTORY: The patient is a pleasant 76-year-old female that fell while visiting her at the senior care. She landed onto her left side and was unable to further ambulate following the fall. She was transported to [facility] where she was diagnosed with an intertrochanteric hip fracture. She is originally seen by Luciano Tran MD and scheduled to undergo surgical into medullary nailing, but there was a delay in the surgery as the patient had a significant low platelets. Following the delays Dr. Tran was unable to get to the patient in a further timely fashion and thus deferred her to me for further evaluation and treatment. I saw and examined the patient and discussed with her the risks, benefits, and indications to proceed with open treatment with application of intramedullary nail. She understood the risks include, but not limited to, neurovascular injury, tendon injury, infection, failure of fixation, stiffness, persistent pain, all of which may require further intervention. The patient had all questions answered. Consent was signed and placed in the chart. PROCEDURE IN DETAIL: The patient was brought to the operative suite and placed supine on the operating room table. Surgical time-out performed, everyone in the room was in agreement. After appropriate anesthesia was obtained, the patient's left lower extremity was placed into a fracture boot and placed onto traction. The contralateral leg was abducted, flexed, and externally rotated out of the operative field. The prominences were all well padded and the body well-secured. Radiographs were obtained to verify the reduction of the intertrochanteric hip fracture which was performed again with longitudinal traction, adduction as well as internal rotation of the left lower extremity. Excellent reduction was achieved and verified with AP and lateral projections. The left hip was then prepped and draped in sterile fashion. A 4 cm longitudinal incision was made just proximal to the greater trochanter. Dissection was carried down sharply to the tip of the greater trochanter and a starting guidewire then advanced across the tip of the greater trochanter for placement of a short Synthes TFNA nail. After confirmation of appropriate placement of the wire the opening reamer was then utilized to ream overlying the wire and an 130 degree size 10 short TFNA nail was impacted into place. Position of the nail was verified in multiple projections on fluoroscopy. A guidewire was placed for planned placement of the lag screw. The wire was placed into a center-center position on AP and lateral projections on fluoroscopy. The wire was then over drilled and tapped and a 90 mm lag screw then advanced. Excellent fixation was achieved with compression applied across the fracture site. This was applied with traction removed to the lower extremity. The nail was then locked and a distal locking screw was then placed utilizing the targeting device off of the guide. The targeting guide was then removed. Final radiographic projections were obtained demonstrating anatomic reduction of the intertrochanteric hip fracture, appropriate placement of the nail, as well as appropriate length of the lag screw and a distal locking screw. Copious irrigation was then performed. The deep fascia to the proximal incision was closed with 0-Vicryl. Subcutaneous tissues with 2-0 Vicryl and eduar for the skin. ESTIMATED BLOOD LOSS: 200 cc. COMPLICATIONS: None. DISPOSITION: The patient tolerated the procedure well. Anesthesia was reversed. The patient was transferred back to recovery. IMPLANTS: A Synthes size 10 short TFNA with 130 degree neck shaft angle. POSTOPERATIVE PLAN: The patient will be admitted back to the floor. She will be weightbearing as tolerated with a walker. Planned hospitalization will be approximately two to three days. She can then be discharged either home with home health versus a rehab facility versus a detention facility pending her progress in-house with therapy.
--- NOTE | 2017-01-10 08:21 | PCM.PNMED ---
Subjective Date of Service Jan 10, 2017 Subjective Patient seen and examined. Sitting in bed, eating her meal. No complaints. Vitals stable. Exam Vital Signs Vital Sign - Last Date Time Temp Pulse Resp B/P Pulse Ox O2 Delivery O2 Flow Rate FiO2 01/10/17 04:50 36.5 82 17 109/68 97 Room Air 01/10/17 00:12 2.00 Intake and Output 01/09/17 01/09/17 01/10/17 Cumulative From/Thru 15:00 23:00 07:00 01/06/17 21:52 - 01/10/17 05:43 Intake Total 800 ml 600 ml 545 ml 4419 ml Output Total 400 ml 550 ml 4250 ml Balance 800 ml 200 ml -5 ml 169 ml Intake Oral 0 ml 450 ml 2436 ml IV Total 300 ml 600 ml 95 ml 995 ml Platelets 500 ml 988 ml Output Urine Total 200 ml 550 ml 4050 ml Estimated Blood Loss 200 ml 200 ml # Bowel Movements 0 1 1 Exam Constitutional: Elderly female in no acute distress Head: Normocephalic atraumatic Chest: Clear to auscultation Cor: Regular rate and rhythm S1-S2 with 2/6 systolic ejection murmur Abdomen: Soft nontender bowel sounds present Extremities: No edema,LE wrapped in dressing after surgery, no edema, circulation intact : Neuro alert and oriented 3, motor strength is intact bilaterally Lab and Diagnostics Result Diagram: 01/10/17 0511 01/10/17 0511 X-Rays, CTs and MRIs PROCEDURE: CT LOWER EXTREMITY LEFT WITHOUT CONTRAST INDICATIONS: L hip fx TECHNIQUE: Noncontrast 3 mm axial sections acquired through the bony pelvis. Additional 3 mm axial sections acquired through the symptomatic hip joint, with coronal and sagittal reformats. COMPARISON: None. FINDINGS: Image quality: Excellent. Bones: There is a moderately displaced and moderately angulated comminuted fracture of the left intertrochanteric femur. Soft tissues: Visualized bowel loops grossly unremarkable. No focal fluid collections. IMPRESSION: Intertrochanteric hip fracture. Concordant with preliminary interpretation. Dictated by: Reyna Gracia M.D. on 01/07/2017 at 8:05 Approved by: Reyna Gracia M.D. on 01/07/2017 at 8:06 PROCEDURE: X-RAY CHEST ONE VIEW, PORTABLE ([id number]) INDICATIONS: preop, fall TECHNIQUE: One view of the chest was acquired. COMPARISON: [facility], CR, CHEST 2VW, 07/17/2012, 11:42. FINDINGS: Surgical changes and devices: None. Lungs and pleura: No pleural effusions or pneumothorax. Lungs are clear. Mediastinum: Mediastinal contours appear normal. Heart size is normal. Bones and chest wall: No suspicious bony lesions. Overlying soft tissues appear unremarkable. IMPRESSION: No acute process. Dictated by: Reyna Gracia M.D. on 01/07/2017 at 7:30 Approved by: Reyna Gracia M.D. on 01/07/2017 at 7:30 Assessment & Plan Patient is a 76-year-old female with a history of osteoporosis, arthritis, left hip fracture, and fibromyalgia who presents with left hip pain following a ground-level fall. Admitted for left hip fracture. Left hip fracture, acute. Present on admission. - s/p surgery yesterday - Dilaudid 0.5 mg q4h PRN, will switch to oral pain meds - DVT prophylaxis: SCDs. We will avoid subcutaneous anticoagulation prophylactically given relatively low platelet count -Echocardiogram does reveal some mild aortic stenosis please see report above - Physical therapy today - patient refusing to go to SNF, wants to go home Acute blood loss anemia after surgery - Hgb 9.3 today, will monitor Osteoporosis, chronic. - In the context of 2 left hip fractures. She will likely require further outpatient workup and management. - Continue vitamin D and calcium - Outpatient follow up Diabetes mellitus type 2 -We will check 4 times a day blood sugars -Hold metformin -Coverage subcutaneous insulin protocol Thrombocytopenia, chronic - Pt has at least 6 year history of platelets in 90s-100s based on EMR. - continue to monitor, after 4 units of plt tranfusions GERD - Protonix 20 mg daily - Bowel regimen as needed - Antiemetic as needed Patient is admitted under inpatient status with expected length of stay greater than 2 midnights due to severity of presenting symptoms, risk of adverse event, and complexity of treatment plan. Pain Evaluation: Adequate Pain Control VTE Mechanical Devices: Intermittant Pneumatic CD Time spent 35 mins Tim Borrero MD Jan 10, 2017 08:20
[2017-01-10] MEDS: Pantoprazole 20 mg ER24 Tablet PO SCH (09:23)
[2017-01-10] MEDS: Calcium Carbonate (Oyster Shell) 500 mg Tablet PO SCH ×2 (09:24→19:50)
[2017-01-10] MEDS: Senna-Docusate 8.6-50 mg Tablet PO SCH ×2 (09:24→19:50)
[2017-01-10] MEDS: diphenhydrAMINE-Zinc 2%-0.1% 30 Gm Cream TOPICAL PRN (09:27)
[2017-01-10] MEDS: Insulin Human REGular 300 Unit/3 mL Inj SUBQ SCH ×4 (09:27→21:25)
--- NOTE | 2017-01-10 10:14 | NUR ---
Evaluation completed. Please go to "Notes" then click on "Assessments and Notes" (bottom left corner of screen). Then select appropriate discipline tab on top of screen.
--- NOTE | 2017-01-10 11:11 | NUR ---
Pain Pt states she is in 10/10 pain at all times. Although is laughing and visiting with friends, sleeping comfortably and appears in no distress. When questioned if this pain was worse then when the break happened pt stated that "yes it is worse now...Because I was drinking my tomato juice and beer when i fell so I think it helps it not hurt as bad." Pain medication given as needed Q4 [place] 2tabs. 0.5 Dilaudid for breakthrough pain Q4hrs. Care continues
--- NOTE | 2017-01-10 13:35 | PCM.PNORTH ---
Subjective Date of Service: Jan 10, 2017 Visit Information: Reason for Visit Left Hip Fracture Surgery/Surgery Date LEFT HIP NAILING 01/09/17 Post-Op Day # 1 Date of Admission: Jan 07, 2017 at 00:49 Hospital Day # Subjective Patient complains of incisional pain. She wants to get up and get moving but is frustrated that she needs to wait for help. She has been up with physical therapy already today. Postop General: No Shortness of Breath, No Chest Pain, Good Appetite Pain Management: PO, IV Push Objective Exam Objective Patient is seen sitting up in a chair Vital Signs and I/O Vital Sign - Last Date Time Temp Pulse Resp B/P Pulse Ox O2 Delivery O2 Flow Rate FiO2 01/10/17 12:13 37.4 92 16 119/73 90 Room Air 01/10/17 00:12 2.00 Intake and Output 01/09/17 01/09/17 01/10/17 Cumulative From/Thru 15:00 23:00 07:00 01/06/17 21:52 - 01/10/17 05:43 Intake Total 800 ml 600 ml 545 ml 4419 ml Output Total 400 ml 550 ml 4250 ml Balance 800 ml 200 ml -5 ml 169 ml Intake Oral 0 ml 450 ml 2436 ml IV Total 300 ml 600 ml 95 ml 995 ml Platelets 500 ml 988 ml Output Urine Total 200 ml 550 ml 4050 ml Estimated Blood Loss 200 ml 200 ml # Bowel Movements 0 1 1 Lab & Micro Results Laboratory Tests Test 01/10/17 05:11 White Blood Count 8.9th/mm3 (3.8-10.1) Red Blood Count 2.87mil/mm3 (3.90-5.20) Hemoglobin 9.3g/dL (12.0-15.6) Hematocrit 27.6% (35.0-46.0) Mean Corpuscular Volume 96.2fL (81-100) Mean Corpuscular Hemoglobin 32.4pg (27.0-35.0) Mean Corpuscular Hemoglobin Concent 33.7% (32.0-37.0) Red Cell Distribution Width 13.5% (12.3-15.4) Platelet Count 193bil/L (150-400) Neutrophils (%) (Auto) 79.6% (40-74) Lymphocytes (%) (Auto) 8.5% (14-46) Monocytes (%) (Auto) 11.1% (4-12) Eosinophils (%) (Auto) 0.1% (0-5) Basophils (%) (Auto) 0.1% (0-3) Sodium Level 135mEq/L (134-144) Potassium Level 4.1mEq/L (3.5-5.2) Chloride Level 95mEq/L (97-108) Carbon Dioxide Level 25mmol/L (18-29) Blood Urea Nitrogen 17mg/dL (8-27) Creatinine 0.48mg/dL (0.57-1.00) Estimat Glomerular Filtration Rate 181mL/min (>59) Glucose Level 270mg/dL (60-99) Calcium Level 8.5mg/dL (8.5-10.1) Total Bilirubin 0.8mg/dL (0.0-1.2) Aspartate Amino Transf (AST/SGOT) 20U/L (0-50) Alanine Aminotransferase (ALT/SGPT) 17U/L (0-32) Alkaline Phosphatase 82U/L (25-165) Total Protein 5.7g/dL (6.4-8.4) Albumin 3.5g/dL (3.4-5.0) Result Diagram: 01/10/1751001/10/17510 General Appearance: Alert, Oriented X3, Cooperative, No Acute Distress Extremities: Distal Pulses Palpable, No Compartment Syndrom Noted, Thigh & Calf Soft/Nontender Postop Sensory Motor: Distal Motor Intact, Distal Sensation Intact, NVI Distally SURGICAL WOUND : Wound Location/Description Left hip: Surgical dressing is clean, dry and intact Incision General Appearance: No Direct Observation Activity: Activity per PT Catheters: None Assessment & Plan Impression POD #1 status post left hip short IM nail Problems: Plan Weightbearing: Weightbearing as tolerated with walker DVT prophylaxis: EC aspirin 325 mg twice a day 6 weeks Physical therapy for transfers, progressive ambulation, therapeutic exercise Wound care: PA will change dressing on postop day 2 Discharge plan: Discharge home vs SNF in 1-2 days. Follow-up plan: In [address] [facility] with PA for wound check and at [address] Miller with x-rays Pain Management: Dilaudid, [place] VTE Prophylaxis: SCDs Resuscitation Status: CPR: Attempt Resuscitation StephensAllyson Gonzales PA-C Jan 10, 2017 13:35
--- NOTE | 2017-01-10 16:31 | PCM.PNORTH ---
Subjective Date of Service: Jan 10, 2017 Visit Information: Reason for Visit Left Hip Fracture Surgery/Surgery Date LEFT HIP NAILING 01/09/17 Post-Op Day # Date of Admission: Jan 07, 2017 at 00:49 Hospital Day # Subjective POD #1 s/p L hip IM nail She is doing well, dozing off and thought it was the AM. She currently states she is comfortable in bed. Minimal activity today with PT. Tolerating PO Postop General: No Shortness of Breath, No Chest Pain, Good Appetite Pain Management: PO, IV Push Objective Exam Objective Gen - alert, NAD Ext - Dressing C/D/I NVI L LE + DF/PF ankle No calf tenderness, neg [place] Vital Signs and I/O Vital Sign - Last Date Time Temp Pulse Resp B/P Pulse Ox O2 Delivery O2 Flow Rate FiO2 01/10/17 12:13 37.4 92 16 119/73 90 Room Air 01/10/17 00:12 2.00 Intake and Output 01/09/17 01/09/17 01/10/17 Cumulative From/Thru 15:00 23:00 07:00 01/06/17 21:52 - 01/10/17 05:43 Intake Total 800 ml 600 ml 545 ml 4419 ml Output Total 400 ml 550 ml 4250 ml Balance 800 ml 200 ml -5 ml 169 ml Intake Oral 0 ml 450 ml 2436 ml IV Total 300 ml 600 ml 95 ml 995 ml Platelets 500 ml 988 ml Output Urine Total 200 ml 550 ml 4050 ml Estimated Blood Loss 200 ml 200 ml # Bowel Movements 0 1 1 Lab & Micro Results Laboratory Tests Test 01/10/17 05:11 White Blood Count 8.9th/mm3 (3.8-10.1) Red Blood Count 2.87mil/mm3 (3.90-5.20) Hemoglobin 9.3g/dL (12.0-15.6) Hematocrit 27.6% (35.0-46.0) Mean Corpuscular Volume 96.2fL (81-100) Mean Corpuscular Hemoglobin 32.4pg (27.0-35.0) Mean Corpuscular Hemoglobin Concent 33.7% (32.0-37.0) Red Cell Distribution Width 13.5% (12.3-15.4) Platelet Count 193bil/L (150-400) Neutrophils (%) (Auto) 79.6% (40-74) Lymphocytes (%) (Auto) 8.5% (14-46) Monocytes (%) (Auto) 11.1% (4-12) Eosinophils (%) (Auto) 0.1% (0-5) Basophils (%) (Auto) 0.1% (0-3) Sodium Level 135mEq/L (134-144) Potassium Level 4.1mEq/L (3.5-5.2) Chloride Level 95mEq/L (97-108) Carbon Dioxide Level 25mmol/L (18-29) Blood Urea Nitrogen 17mg/dL (8-27) Creatinine 0.48mg/dL (0.57-1.00) Estimat Glomerular Filtration Rate 181mL/min (>59) Glucose Level 270mg/dL (60-99) Calcium Level 8.5mg/dL (8.5-10.1) Total Bilirubin 0.8mg/dL (0.0-1.2) Aspartate Amino Transf (AST/SGOT) 20U/L (0-50) Alanine Aminotransferase (ALT/SGPT) 17U/L (0-32) Alkaline Phosphatase 82U/L (25-165) Total Protein 5.7g/dL (6.4-8.4) Albumin 3.5g/dL (3.4-5.0) Result Diagram: 01/10/1751001/10/17510 SURGICAL WOUND : Incision General Appearance: No Direct Observation Activity: Activity per PT Catheters: None Assessment & Plan Impression POD #1 s/p L hip paty Problems: Plan Encourage ambulation and gait training with PT- WBAT with walker Goal for increased activity and d/c cook in AM Change dressing out tommorrow D/C planning likely to SNF although patient adamant about going home - maybe discuss possible going to [facility] where her is currently at DVT prophylaxis recommendation per hematology secondary to her platelet disorder Continue to monitor H/H VTE Prophylaxis: SCDs Resuscitation Status: CPR: Attempt Resuscitation Antoni Miller DO Jan 10, 2017 16:31
[2017-01-10] MEDS: Insulin GLARgine 100 Unit/mL Syringe SUBQ SCH (21:26)
[2017-01-11] MEDS: Sodium Chloride LOK Flush 10 mL Syringe IV SCH ×3 (00:30→16:30)
[2017-01-11] MEDS: HYDROmorphone 1 mg/mL Inj IVPUSH PRN (03:01)
[2017-01-11 04:30] VITALS: BP 126/56; PULSE 82; RESP 18; O2SAT 94
[2017-01-11 05:29] LABS: BASOPHILS % (AUTO) 0.3 % (0-3); EOSINOPHILS % (AUTO) 1.2 % (0-5); MONOCYTES % (AUTO) 11.7 % (4-12); Mean Corpuscular Hemoglobin 32.4 pg (27.0-35.0); Mean Corpuscular Volume 97.3 fL (81-100); Platelet Count 126 bil/L (150-400)
--- NOTE | 2017-01-11 05:40 | NUR ---
Pain/Blood Sugar Patient is alert and oriented. Complained of pain and spasms at bedtime. Muscle relaxant and pain meds given. Patient sleeping comfortably. Evening blood sugar = 364. Coverage and Lantus given. Blood sugar at 0300 = 167. Urena patent and draining to gravity. Hip dressing C/D/I. Bed down, rails up, call light in reach. Care continues.
[2017-01-11 06:15] VITALS: PULSE 82
[2017-01-11] MEDS: 0.9% Sodium Chloride 250 ML IV SCH (07:30)
[2017-01-11 08:00] VITALS: PULSE 88
--- NOTE | 2017-01-11 08:44 | PCM.PNMED ---
Subjective Date of Service Jan 11, 2017 Subjective Patient seen and examined today. No complaints except that she is adamant about not going to SNF. Explained the risks of not having enough PT and help at home. She said she needs time to think. Vitals noted Exam Vital Signs Vital Sign - Last Date Time Temp Pulse Resp B/P Pulse Ox O2 Delivery O2 Flow Rate FiO2 01/11/17 08:00 88 01/11/17 04:30 36.8 18 126/56 94 Room Air 01/10/17 00:12 2.00 Intake and Output 01/10/17 01/10/17 01/11/17 Cumulative From/Thru 15:00 23:00 07:00 01/06/17 21:52 - 01/11/17 05:32 Intake Total 500 ml 550 ml 50 ml 5519 ml Output Total 500 ml 900 ml 5650 ml Balance 500 ml 50 ml -850 ml -131 ml Intake Oral 550 ml 50 ml 3036 ml IV Total 500 ml 1495 ml Platelets 988 ml Output Urine Total 500 ml 900 ml 5450 ml Estimated Blood Loss 200 ml # Bowel Movements 0 1 Exam Constitutional: Elderly female in no acute distress Head: Normocephalic atraumatic Chest: Clear to auscultation Cor: Regular rate and rhythm S1-S2 with 2/6 systolic ejection murmur Abdomen: Soft nontender bowel sounds present Extremities: No edema,LE wrapped in dressing after surgery, no edema, circulation intact : Neuro alert and oriented 3, motor strength is intact bilaterally Lab and Diagnostics Result Diagram: 01/11/17 0504 01/10/17 0511 X-Rays, CTs and MRIs PROCEDURE: CT LOWER EXTREMITY LEFT WITHOUT CONTRAST INDICATIONS: L hip fx TECHNIQUE: Noncontrast 3 mm axial sections acquired through the bony pelvis. Additional 3 mm axial sections acquired through the symptomatic hip joint, with coronal and sagittal reformats. COMPARISON: None. FINDINGS: Image quality: Excellent. Bones: There is a moderately displaced and moderately angulated comminuted fracture of the left intertrochanteric femur. Soft tissues: Visualized bowel loops grossly unremarkable. No focal fluid collections. IMPRESSION: Intertrochanteric hip fracture. Concordant with preliminary interpretation. Dictated by: Reyna Gracia M.D. on 01/07/2017 at 8:05 Approved by: Reyna Gracia M.D. on 01/07/2017 at 8:06 PROCEDURE: X-RAY CHEST ONE VIEW, PORTABLE ([id number]) INDICATIONS: preop, fall TECHNIQUE: One view of the chest was acquired. COMPARISON: [facility], , CHEST 2VW, 07/17/2012, 11:42. FINDINGS: Surgical changes and devices: None. Lungs and pleura: No pleural effusions or pneumothorax. Lungs are clear. Mediastinum: Mediastinal contours appear normal. Heart size is normal. Bones and chest wall: No suspicious bony lesions. Overlying soft tissues appear unremarkable. IMPRESSION: No acute process. Dictated by: Reyna Gracia M.D. on 01/07/2017 at 7:30 Approved by: Reyna Gracia M.D. on 01/07/2017 at 7:30 Assessment & Plan Patient is a 76-year-old female with a history of osteoporosis, arthritis, left hip fracture, and fibromyalgia who presents with left hip pain following a ground-level fall. Admitted for left hip fracture. Left hip fracture, acute. Present on admission. - s/p surgery - Dilaudid 0.5 mg q4h PRN, will switch to oral pain meds - DVT prophylaxis: SCDs. We will avoid subcutaneous anticoagulation prophylactically given relatively low platelet count -Echocardiogram does reveal some mild aortic stenosis please see report above - Physical therap - patient refusing to go to SNF, wants to go home Acute blood loss anemia after surgery - Hgb 8,5 today from 9.3 yesterday, will monitor ' - transfuse if < 7.0 - continue to monitor for any other sources of bleeding Osteoporosis, chronic. - In the context of 2 left hip fractures. She will likely require further outpatient workup and management. - Continue vitamin D and calcium - Outpatient follow up Diabetes mellitus type 2 - morning glucose 167 today -We will check 4 times a day blood sugars -Hold metformin- -restarted home insulin Thrombocytopenia, chronic - Pt has at least 6 year history of platelets in 90s-100s based on EMR. - continue to monitor, patient after 4 units of plt tranfusions for surgery GERD - Protonix 20 mg daily - Bowel regimen as needed - Antiemetic as needed Patient is admitted under inpatient status with expected length of stay greater than 2 midnights due to severity of presenting symptoms, risk of adverse event, and complexity of treatment plan. VTE Prophylaxis: SCDs VTE Mechanical Devices: Intermittant Pneumatic CD Resuscitation Status: CPR: Attempt Resuscitation Time spent 35 mins Tim Borrero MD Jan 11, 2017 08:44
[2017-01-11] MEDS: Pantoprazole 20 mg ER24 Tablet PO SCH (09:03)
[2017-01-11] MEDS: Senna-Docusate 8.6-50 mg Tablet PO SCH ×2 (09:03→20:14)
[2017-01-11] MEDS: HYDROcodone-APAP 5-325 mg Tablet PO PRN ×3 (09:04→20:23)
[2017-01-11] MEDS: Insulin Human REGular 300 Unit/3 mL Inj SUBQ SCH ×4 (09:06→21:30)
[2017-01-11] MEDS: Calcium Carbonate (Oyster Shell) 500 mg Tablet PO SCH ×2 (09:08→21:10)
[2017-01-11] MEDS: diphenhydrAMINE-Zinc 2%-0.1% 30 Gm Cream TOPICAL PRN (09:09)
[2017-01-11 11:05] VITALS: BP 91/54; PULSE 86; RESP 15; O2SAT 92
--- NOTE | 2017-01-11 11:51 | NUR ---
Social Work: Continued Discharge Planning/Bedside Rounding D: EMR reviewed. Pt is on day 4 of hospitalization and medically stable for discharge to a SNF or home with 24/7 care. SW and medical team met with pt and bedside and discussed recommendations. MD stated that he is not willing to discharge pt unless we can confirm 24/7 care at home. Pt continues to decline SNF. SW confirmed that SW will follow-up with pt later today after pt calls family members who can provide care. A: Pt for whom a SNF is medically necessary (pt declines) or 24/7 care with HH. P: SW to follow-up with pt today to determine if pt has found 24/7 care through family. DAXA Elkins
--- NOTE | 2017-01-11 15:59 | PCM.PNORTH ---
Subjective Date of Service: Jan 11, 2017 Visit Information: Reason for Visit Left Hip Fracture Surgery/Surgery Date LEFT HIP NAILING 01/09/17 Post-Op Day # Date of Admission: Jan 07, 2017 at 00:49 Hospital Day # Subjective Status post a #2 left hip IM nail. Patient states she is doing pretty well, pain is well controlled. Her biggest irritation is finding someone in her family who can help her so that she can go home instead of a halfway facility. Postop General: No Shortness of Breath, No Chest Pain, Good Appetite Pain Management: PO, IV Push Objective Exam Objective Patient is alert and oriented 3. Answering questions appropriately. Patient is sitting up in the bedside chair and not in acute distress today. Dressing is clean dry and intact. Calf is soft and nontender. Sensation and pulses intact, patient able to wiggle toes. Vital Signs and I/O Vital Sign - Last Date Time Temp Pulse Resp B/P Pulse Ox O2 Delivery O2 Flow Rate FiO2 01/11/17 11:05 36.8 86 15 91/54 92 Room Air 01/10/17 00:12 2.00 Intake and Output 01/10/17 01/10/17 01/11/17 Cumulative From/Thru 14:59 22:59 06:59 01/06/17 21:52 - 01/11/17 05:32 Intake Total 500 ml 550 ml 50 ml 5519 ml Output Total 500 ml 900 ml 5650 ml Balance 500 ml 50 ml -850 ml -131 ml Intake Oral 550 ml 50 ml 3036 ml IV Total 500 ml 1495 ml Platelets 988 ml Output Urine Total 500 ml 900 ml 5450 ml Estimated Blood Loss 200 ml # Bowel Movements 0 1 Lab & Micro Results Laboratory Tests Test 01/11/17 05:04 White Blood Count 7.6th/mm3 (3.8-10.1) Red Blood Count 2.62mil/mm3 (3.90-5.20) Hemoglobin 8.5g/dL (12.0-15.6) Hematocrit 25.5% (35.0-46.0) Mean Corpuscular Volume 97.3fL (81-100) Mean Corpuscular Hemoglobin 32.4pg (27.0-35.0) Mean Corpuscular Hemoglobin Concent 33.3% (32.0-37.0) Red Cell Distribution Width 13.5% (12.3-15.4) Platelet Count 126bil/L (150-400) Neutrophils (%) (Auto) 72.0% (40-74) Lymphocytes (%) (Auto) 14.3% (14-46) Monocytes (%) (Auto) 11.7% (4-12) Eosinophils (%) (Auto) 1.2% (0-5) Basophils (%) (Auto) 0.3% (0-3) Result Diagram: 01/11/17 0504 01/10/17 0511 SURGICAL WOUND : Incision General Appearance: No Direct Observation Activity: Activity per PT Catheters: None Assessment & Plan Impression Status post day #2 left hip IM now. Patient will require discharge to home versus SNF. Problems: Plan Weightbearing: Weightbearing as tolerated with walker DVT prophylaxis: EC aspirin 325 mg twice a day 6 weeks Physical therapy for transfers, progressive ambulation, therapeutic exercise Wound care: PA will change dressing on postop day 2 Discharge plan: Discharge home vs SNF in 1 day. Follow-up plan: In 2 weeks at [facility] with PA for wound check and at [address] Miller with x-rays VTE Prophylaxis: SCDs Resuscitation Status: CPR: Attempt Resuscitation Drew Johnson PA-C Jan 11, 2017 15:58
[2017-01-11 16:29] VITALS: BP 130/79; PULSE 77; RESP 16; O2SAT 95
--- NOTE | 2017-01-11 17:31 | NUR ---
Social Work: Continued Discharge Planning D: EMR reviewed. Pt is on day 4 of hospitalization and medically stable for discharge to a SNF or home with 24/7 care and home health. Pt continues to decline SNF. SW met with pt this afternoon to see if pt was able to secure 24/7 care with a family member. Pt stated "I am not going to a longterm - I will find someone to take care of me." SW explained the difference between LTC at a SNF and rehab at a SNF. Pt concerned she is going to end up staying at SNF detention and doesn't want her spouse to find out she is in a SNF (pt's spouse is at [facility] memory care). SW asked pt if she would like to go to another SNF, other than [facility] where her spouse resides. Pt continues to refuse. Pt states she will find 24/7 care by the morning. SW explained that if pt is not able to find care by the AM and is not willing to go to SNF, pt will likely be issued a HIN letter and will be responsible for medical bill if pt is medically stable for discharge and is declining a safe discharge plan. Pt stated, with phone in hand, "I will find someone - I am not going" A: Pt for whom a SNF is medically necessary (pt declines) or 24/7 care with HH. P: SW to follow-up with pt tomorrow, if pt still does not have 24/7 care and declining SNF, SW to contact [facility]. updated and agreeable. DAXA Elkins
--- NOTE | 2017-01-11 17:39 | NUR ---
Dsg change Per pt pain seems controlled at rest with 1tab [place] Q 4hrs. Dsg changed. well approximated, eduar in tact. Very little SS drainage noted on the most proximal larger incision. Place Mepilex over distal incisions X2 and [place] over larger incision. No swelling abnormal drainage noted. Care continues
[2017-01-11] MEDS: Insulin GLARgine 100 Unit/mL Syringe SUBQ SCH (21:30)
[2017-01-11 22:20] VITALS: BP 107/68; PULSE 91; RESP 18; O2SAT 96
[2017-01-12] MEDS: Sodium Chloride LOK Flush 10 mL Syringe IV SCH ×4 (00:30→21:36)
[2017-01-12 02:07] VITALS: BP 125/75; PULSE 88; RESP 18
[2017-01-12] MEDS: HYDROcodone-APAP 5-325 mg Tablet PO PRN ×4 (02:29→21:17)
--- NOTE | 2017-01-12 04:36 | NUR ---
BMs/Turns/ Plan of Care Pt. has had multiple formed incontinent BMs this shift. Turning being implemented, and barrier cream applied to back side. Pt. was able to get ahold of granddaughter last night. Per pt, granddaughter is willing to take care of pt. 13/11, and have pt. move in with her. Pt. states granddaughter will be here later in the AM. Will pass on to day shift. Will continue to monitor.
[2017-01-12 04:50] VITALS: PULSE 82
[2017-01-12 05:39] LABS: BASOPHILS % (AUTO) 0.3 % (0-3); EOSINOPHILS % (AUTO) 1.1 % (0-5); MONOCYTES % (AUTO) 11.4 % (4-12); Mean Corpuscular Hemoglobin 32.5 pg (27.0-35.0); Mean Corpuscular Volume 96.3 fL (81-100); NEUTROPHILS % (AUTO) 70.3 % (40-74); Platelet Count 109 bil/L (150-400)
[2017-01-12] MEDS: 0.9% Sodium Chloride 250 ML IV SCH (07:30)
[2017-01-12] MEDS: Senna-Docusate 8.6-50 mg Tablet PO SCH ×2 (07:45→20:30)
[2017-01-12 07:48] VITALS: PULSE 87
[2017-01-12] MEDS: Insulin Human REGular 300 Unit/3 mL Inj SUBQ SCH ×4 (08:03→21:36)
[2017-01-12] MEDS: Pantoprazole 20 mg ER24 Tablet PO SCH (08:04)
[2017-01-12] MEDS: Calcium Carbonate (Oyster Shell) 500 mg Tablet PO SCH ×2 (08:04→21:16)
[2017-01-12 08:48] VITALS: BP 103/65; PULSE 69; RESP 20; O2SAT 94
--- NOTE | 2017-01-12 11:07 | PCM.PNMED ---
Subjective Date of Service Jan 12, 2017 Subjective Patient seen and examined today. No complaints. Vitals stable. Exam Vital Signs Vital Sign - Last Date Time Temp Pulse Resp B/P Pulse Ox O2 Delivery O2 Flow Rate FiO2 01/12/17 08:48 36.6 69 20 103/65 94 Room Air 01/10/17 00:12 2.00 Intake and Output 01/11/17 01/11/17 01/12/17 Cumulative From/Thru 15:00 23:00 07:00 01/06/17 21:52 - 01/12/17 06:12 Intake Total 1136 ml 600 ml 7255 ml Output Total 300 ml 5950 ml Balance 836 ml 600 ml 1305 ml Intake Oral 1136 ml 600 ml 4772 ml IV Total 1495 ml Platelets 988 ml Output Urine Total 300 ml 5750 ml Estimated Blood Loss 200 ml # Voids 2 2 # Bowel Movements 1 4 6 Exam Constitutional: Elderly female in no acute distress Head: Normocephalic atraumatic Chest: Clear to auscultation Cor: Regular rate and rhythm S1-S2 with 2/6 systolic ejection murmur Abdomen: Soft nontender bowel sounds present Extremities: No edema,LE wrapped in dressing after surgery, no edema, circulation intact : Neuro alert and oriented 3, motor strength is intact bilaterally Lab and Diagnostics Result Diagram: 01/12/17 0512 01/10/17 0511 X-Rays, CTs and MRIs PROCEDURE: CT LOWER EXTREMITY LEFT WITHOUT CONTRAST INDICATIONS: L hip fx TECHNIQUE: Noncontrast 3 mm axial sections acquired through the bony pelvis. Additional 3 mm axial sections acquired through the symptomatic hip joint, with coronal and sagittal reformats. COMPARISON: None. FINDINGS: Image quality: Excellent. Bones: There is a moderately displaced and moderately angulated comminuted fracture of the left intertrochanteric femur. Soft tissues: Visualized bowel loops grossly unremarkable. No focal fluid collections. IMPRESSION: Intertrochanteric hip fracture. Concordant with preliminary interpretation. Dictated by: Reyna Gracia M.D. on 01/07/2017 at 8:05 Approved by: Reyna Gracia M.D. on 01/07/2017 at 8:06 PROCEDURE: X-RAY CHEST ONE VIEW, PORTABLE ([id number]) INDICATIONS: preop, fall TECHNIQUE: One view of the chest was acquired. COMPARISON: [facility], CR, CHEST 2VW, 07/17/2012, 11:42. FINDINGS: Surgical changes and devices: None. Lungs and pleura: No pleural effusions or pneumothorax. Lungs are clear. Mediastinum: Mediastinal contours appear normal. Heart size is normal. Bones and chest wall: No suspicious bony lesions. Overlying soft tissues appear unremarkable. IMPRESSION: No acute process. Dictated by: Reyna Gracia M.D. on 01/07/2017 at 7:30 Approved by: Reyna Gracia M.D. on 01/07/2017 at 7:30 Assessment & Plan Patient is a 76-year-old female with a history of osteoporosis, arthritis, left hip fracture, and fibromyalgia who presents with left hip pain following a ground-level fall. Admitted for left hip fracture. Left hip fracture, acute. Present on admission. - s/p surgery - on oral pain meds - DVT prophylaxis: SCDs. We will avoid subcutaneous anticoagulation prophylactically given relatively low platelet count -Echocardiogram does reveal some mild aortic stenosis please see report above - Physical therap - patient refusing to go to SNF, wants to go home Acute blood loss anemia after surgery - Hgb 7.9<8.5<9.3 - transfuse if < 7.0 - continue to monitor for any other sources of bleeding Osteoporosis, chronic. - In the context of 2 left hip fractures, any kind of trauma increases her risk. Needs outpatient workup - Continue vitamin D and calcium - Outpatient follow up Diabetes mellitus type 2 - morning glucose 167 today -We will check 4 times a day blood sugars -Hold metformin- -restarted home insulin Thrombocytopenia, chronic - Pt has at least 6 year history of platelets in 90s-100s based on EMR. - continue to monitor, patient after 4 units of plt tranfusions for surgery GERD - Protonix 20 mg daily - Bowel regimen as needed - Antiemetic as needed Dispo: As per assessment by PT, Ortho and myself, patient will be unsafe to go home at this point. She needs to be in a skilled rehab facility to be monitored as her risk for fall is quite high. Patient's grand daughter bedside agrees with the plan, and says she will not find someone to take care of her to the ability she needs. She refuses halfway still. VTE Prophylaxis: SCDs VTE Mechanical Devices: Intermittant Pneumatic CD Resuscitation Status: CPR: Attempt Resuscitation Time spent 35 mins Gissell,Tim MD Jan 12, 2017 11:07
--- NOTE | 2017-01-12 12:32 | PCM.PNORTH ---
Subjective Date of Service: Jan 12, 2017 Visit Information: Reason for Visit Left Hip Fracture Surgery/Surgery Date LEFT HIP NAILING 01/09/17 Post-Op Day # 3 Date of Admission: Jan 07, 2017 at 00:49 Hospital Day # Subjective Progressing very slowly with PT. Needs max assist to get up from chair. Patient has been abusive to the therapy staff and is now been discharged from their service. Postop General: No Shortness of Breath, No Chest Pain, Good Appetite Pain Management: PO, IV Push Objective Exam Objective Patient is seen sitting up in a chair Vital Signs and I/O Vital Sign - Last Date Time Temp Pulse Resp B/P Pulse Ox O2 Delivery O2 Flow Rate FiO2 01/12/17 08:48 36.6 69 20 103/65 94 Room Air 01/10/17 00:12 2.00 Intake and Output 01/11/17 01/11/17 01/12/17 Cumulative From/Thru 15:00 23:00 07:00 01/06/17 21:52 - 01/12/17 06:12 Intake Total 1136 ml 600 ml 7255 ml Output Total 300 ml 5950 ml Balance 836 ml 600 ml 1305 ml Intake Oral 1136 ml 600 ml 4772 ml IV Total 1495 ml Platelets 988 ml Output Urine Total 300 ml 5750 ml Estimated Blood Loss 200 ml # Voids 2 2 # Bowel Movements 1 4 6 Lab & Micro Results Laboratory Tests Test 01/12/17 05:12 01/12/17 12:00 White Blood Count 6.2th/mm3 (3.8-10.1) Red Blood Count 2.43mil/mm3 (3.90-5.20) Hemoglobin 7.9g/dL (12.0-15.6) 8.7g/dL (12.0-15.6) Hematocrit 23.4% (35.0-46.0) 26.1% (35.0-46.0) Mean Corpuscular Volume 96.3fL (81-100) Mean Corpuscular Hemoglobin 32.5pg (27.0-35.0) Mean Corpuscular Hemoglobin Concent 33.8% (32.0-37.0) Red Cell Distribution Width 13.2% (12.3-15.4) Platelet Count 109bil/L (150-400) Neutrophils (%) (Auto) 70.3% (40-74) Lymphocytes (%) (Auto) 16.6% (14-46) Monocytes (%) (Auto) 11.4% (4-12) Eosinophils (%) (Auto) 1.1% (0-5) Basophils (%) (Auto) 0.3% (0-3) Result Diagram: 01/12/17 1200 01/10/17 0511 General Appearance: Alert, Oriented X3, Cooperative, No Acute Distress Extremities: Distal Pulses Palpable, No Compartment Syndrom Noted, Thigh & Calf Soft/Nontender Postop Sensory Motor: Distal Motor Intact, Distal Sensation Intact, NVI Distally SURGICAL WOUND : Wound Location/Description Left hip: Dressing is moderate serous drainage the proximal wound. Dressings are removed. The wounds are well approximated and closed with eduar. There is no erythema present. There is mild ecchymosis and mild swelling. The wounds were cleansed with hydrogen peroxide and new [place] dressings applied. Activity: Activity per PT Catheters: None Assessment & Plan Impression POD #3 status post left hip IM nailing Problems: Plan Weightbearing: Weightbearing as tolerated with walker DVT prophylaxis: Lovenox 40 mg subcutaneous 2 weeks followed by aspirin 325 mg twice a day 4 weeks Physical therapy for transfers, progressive ambulation, therapeutic exercise if patient can be cooperative Wound care: Dressing changed today. Change dressing every 1-2 days or as needed due to drainage. The most proximal wound will tend to drain the most. Discharge plan: Discharge home versus SNF when medically stable. Patient is progressing very slowly with physical therapy and is not considered safe for going home without significant assistance available. Patient may shower when wound is dry for 24 hours. Cover wound with plastic to shower. Recommend SNF placement but patient adamantly refuses and becomes belligerent with staff. We appreciate the hospitalist service' care of this patient. Ortho will sign off for now. Please call us if any left hip wound issues arise. Follow-up plan: In 2 weeks at [facility] with MONA for wound check and at [address] Miller with x-rays Pain Management: Dilaudid, [place] VTE Prophylaxis: SCDs, Other (aspirin 325 mg twice a day) Resuscitation Status: CPR: Attempt Resuscitation Allyson Davis PA-C Jan 12, 2017 12:32
--- NOTE | 2017-01-12 13:07 | PCM.DIMED ---
Discharge Instructions Date of Service Jan 12, 2017 Dates of Hospitalization Jan 07, 2017 at 00:49 Patient Instructions Follow-up plan Follow-up plan: In 2 weeks at [facility] with PA for wound check and at [address] Miller with x-rays Follow-up with PCP in: 1 week Additional Information Weightbearing: Weightbearing as tolerated with walker DVT prophylaxis: aspirin 325 mg twice a day 6 weeks Physical therapy for transfers, progressive ambulation, therapeutic exercise Wound care: Change dressing every 1-2 days or as needed due to drainage. The most proximal wound will tend to drain the most. Tim Borrero MD Jan 12, 2017 13:07
[2017-01-12] MEDS ORDERED: HYDR-4003 PO (13:10)
[2017-01-12] MEDS ORDERED: ASPI325T32 PO (13:15)
[2017-01-12 16:47] VITALS: BP 112/45; PULSE 84; RESP 20; O2SAT 96
--- NOTE | 2017-01-12 17:00 | NUR ---
Transfer of Care Received pt report at 1700. Pt A&Ox3, VILLA - gen weakness, pain tolerable, IV SL, Pt talking and making jokes with staff, BG 388 - 5units insulin given, Dressing to LLE of Mepilex/gauze/island dressing - mod dried mostly serous with minimal sanguineous noted. Pt comfortable. Care continues.
--- NOTE | 2017-01-12 17:44 | NUR ---
Social Work: Readiness for Discharge/Multidisciplinary Rounds D: EMR reviewed. Pt is on day 5 of hospitalization and medically stable for discharge to a SNF or home with 24/7 care and home health. Pt continues to decline SNF. SW met with pt this afternoon to see if pt was able to secure 24/7 care with a family member. Pt stated "I am not going to a assisted - I will find someone to take care of me." Pt willing to provide SW with pt's granddaughters number and gave verbal consent to contact Sirena Spaulding ([phone]). SW explained that if granddaughter is willing to care 24/7 for pt, medical team will need to go over pt's care needs at home prior to discharge and teach granddaughter how to provide care for pt - given pt continues to decline MD recommendation for SNF. GREG received update from and Etiquette Teacher that pt called [facility] to cancel bed hold - pt's original choice. Pt had been accepted to [facility] and had an opening available today. T/C to pt's granddaughter Sirena Spaulding. Sirena stated she is "absolutely not willing or able to provide 24/7 care and agrees that she needs to go to SNF." Sirena stated that pt "thinks this is a game and is lying when she states she has finances or family that provide that level of care." Pt's granddaughter came to hospital to meet pt with GREG and MD. GREG explained that pt has not been able to secure 24/7 care and discharge orders have been placed. Pt continues to decline SNF. GREG explained that pt has right to appeal discharge. GREG explained that MD is not willing to discharge pt without safe discharge plan. Pt continues to deny SNF and stated she wanted to discuss appealing her discharge with UR RN. UR RN contacted and met with pt. Pt now agreeable to SNF - preference [facility]. GREG contacted Etiquette Teacher with update that pt would now like to go to SNF and is only willing to go to [facility]. Etiquette Teacher made referral and confirmed [facility] will have bed available for pt - earliest 01/15 (pt cancelled original bed hold and next available opening is 01/15). GREG updated pt and granddaughter at bedside about [facility] opening on 01/15. GREG confirmed with pt that it is still okay to communicate with granddaughter regarding discharge - pt agreeable. A: Pt for whom a SNF is medically necessary P: Pt anticipated to discharge to [facility] with Dr. Wells to follow on 01/15 (earliest opening date). SW to contact granddaughter Sirena Spaulding ([phone]) with any updates on pt's discharge plan. Sirena would like to follow pt to [facility] once ready for discharge - pt agreeable. No other SW needs at this time, SW will continue to follow. DAXA Elkins
[2017-01-12 20:59] VITALS: BP 135/75; PULSE 89; RESP 17; O2SAT 96
[2017-01-12] MEDS: Insulin GLARgine 100 Unit/mL Syringe SUBQ SCH (21:35)
[2017-01-13 00:36] VITALS: BP 110/72; PULSE 83; RESP 18; O2SAT 98
[2017-01-13 05:40] VITALS: BP 134/65; PULSE 80; RESP 18; O2SAT 97
[2017-01-13] MEDS: HYDROcodone-APAP 5-325 mg Tablet PO PRN ×3 (05:56→20:16)
--- NOTE | 2017-01-13 06:18 | NUR ---
Pain Pt reports intermittent 8-10/10 abdominal and hip pain, Vivodin given x2 with good effect. Pt very hesitant to move, screams out when touched.
[2017-01-13] MEDS: 0.9% Sodium Chloride 250 ML IV SCH (07:30)
[2017-01-13] MEDS: Senna-Docusate 8.6-50 mg Tablet PO SCH ×3 (08:30→22:44)
[2017-01-13] MEDS: Pantoprazole 20 mg ER24 Tablet PO SCH (08:44)
[2017-01-13] MEDS: Calcium Carbonate (Oyster Shell) 500 mg Tablet PO SCH ×2 (08:45→20:30)
[2017-01-13] MEDS: Insulin Human REGular 300 Unit/3 mL Inj SUBQ SCH ×2 (08:45→12:10)
[2017-01-13] MEDS: Sodium Chloride LOK Flush 10 mL Syringe IV SCH ×2 (08:45→15:52)
[2017-01-13 13:21] VITALS: BP 105/51; PULSE 62; RESP 18; O2SAT 95
[2017-01-13] MEDS ORDERED: Glucose 40% Oral Gel 15 Gm Tube PO PRN (15:15)
[2017-01-13] MEDS ORDERED: HYDROmorphone 1 mg/mL Inj IVPUSH PRN (15:35)
--- NOTE | 2017-01-13 15:35 | PCM.PNMED ---
Subjective Date of Service Jan 13, 2017 Subjective Patient is seen and examined. She is in good mood today. States where "they" wanted me to spend is not where she wanted to go so she refused to leave yesterday. However, she feels she will go to [facility] and then go home in two days. Denies fevers chills, GI and urinary problems. Exam Vital Signs Vital Sign - Last Date Time Temp Pulse Resp B/P Pulse Ox O2 Delivery O2 Flow Rate FiO2 01/13/17 05:40 36.8 80 18 134/65 97 Room Air 01/10/17 00:12 2.00 Intake and Output 01/12/17 01/12/17 01/13/17 Cumulative From/Thru 15:00 23:00 07:00 01/06/17 21:52 - 01/13/17 03:52 Intake Total 900 ml 8155 ml Output Total 301 ml 6251 ml Balance 599 ml 1904 ml Intake Oral 900 ml 5672 ml IV Total 1495 ml Platelets 988 ml Output Urine Total 300 ml 6050 ml Stool Total 1 ml 1 ml Estimated Blood Loss 200 ml # Voids 6 8 # Bowel Movements 3 9 Exam General: NAD, large body habitus, alopecia HEENT: NCAT Heart: RRR, no s3/s4 Lungs: Clear, no crackles or wheezes anteriorly Abd: Soft, NT/ND, normal bowel sounds Ext: No edema Vasc: Palpable pedal pulses Neuro: No focal deficits Psych: No anxiety, affect authoritative Neck: No JVD IVs and Medications IV Fluids None Medications Reviewed: Medications were reviewed in detail Lab and Diagnostics Result Diagram: 01/12/17 1200 01/10/17 0511 X-Rays, CTs and MRIs PROCEDURE: CT LOWER EXTREMITY LEFT WITHOUT CONTRAST INDICATIONS: L hip fx TECHNIQUE: Noncontrast 3 mm axial sections acquired through the bony pelvis. Additional 3 mm axial sections acquired through the symptomatic hip joint, with coronal and sagittal reformats. COMPARISON: None. FINDINGS: Image quality: Excellent. Bones: There is a moderately displaced and moderately angulated comminuted fracture of the left intertrochanteric femur. Soft tissues: Visualized bowel loops grossly unremarkable. No focal fluid collections. IMPRESSION: Intertrochanteric hip fracture. Concordant with preliminary interpretation. Dictated by: Reyna Gracia M.D. on 01/07/2017 at 8:05 Approved by: Reyna Gracia M.D. on 01/07/2017 at 8:06 PROCEDURE: X-RAY CHEST ONE VIEW, PORTABLE ([id number]) INDICATIONS: preop, fall TECHNIQUE: One view of the chest was acquired. COMPARISON: [facility], CR, CHEST 2VW, 07/17/2012, 11:42. FINDINGS: Surgical changes and devices: None. Lungs and pleura: No pleural effusions or pneumothorax. Lungs are clear. Mediastinum: Mediastinal contours appear normal. Heart size is normal. Bones and chest wall: No suspicious bony lesions. Overlying soft tissues appear unremarkable. IMPRESSION: No acute process. Dictated by: Reyna Gracia M.D. on 01/07/2017 at 7:30 Approved by: Reyna Gracia M.D. on 01/07/2017 at 7:30 Assessment & Plan Patient is a 76-year-old female with a history of osteoporosis, arthritis, left hip fracture, and fibromyalgia who presents with left hip pain following a ground-level fall. Admitted for left hip fracture. Left hip fracture, acute. Present on admission s/p ORIF - s/p surgery - on oral pain meds - DVT prophylaxis: SCDs. We will avoid subcutaneous anticoagulation prophylactically given relatively low platelet count -Echocardiogram does reveal some mild aortic stenosis please see report above - Physical therap - patient refusing to go to SNF, wants to go home on 01/12 -- on 01/13 sghe says she will go to [facility] on 01/13. Stated she does not like it there beause her is there and he is "pretty demented". Acute blood loss anemia after surgery stable - H&H stable - transfuse if < 7.0 - continue to monitor for any other sources of bleeding Osteoporosis, chronic. - In the context of 2 left hip fractures, any kind of trauma increases her risk. Needs outpatient workup - Continue vitamin D and calcium - Outpatient follow up Chronic Diabetes mellitus type 2 poorly controlled -We will check 4 times a day blood sugars -Hold metformin- -25 U HS lantus + TID Humalog 7 U + humalog Low SSI Thrombocytopenia, chronic stable - Pt has at least 6 year history of platelets in 90s-100s based on EMR. - continue to monitor, patient after 4 units of plt tranfusions for surgery -- Gave heparin SQ 5000 BID as platelets are >100 consistently -- Will watch for HIT etc GERD chronic stable - Protonix 20 mg daily - Bowel regimen as needed - Antiemetic as needed High Risk Meds: IV dilaudid Dispo: As per assessment by PT, Ortho and myself, patient will be unsafe to go home at this point. She needs to be in a skilled rehab facility to be monitored as her risk for fall is quite high. Patient's grand daughter bedside agrees with the plan, and says she will not find someone to take care of her to the ability she needs. She refuses snf still. On 01/13 she says she will go to [facility] because she knows she can leave from there in 2 days. Pain Evaluation: Adequate Pain Control VTE Prophylaxis: SCDs, Other (aspirin 325 mg twice a day) VTE Mechanical Devices: Intermittant Pneumatic CD Resuscitation Status: CPR: Attempt Resuscitation Time spent 30 min Marilee Oscar DO Jan 13, 2017 08:18
--- NOTE | 2017-01-13 17:10 | NUR ---
Pain/activity No complaints of abd pain. Vicodin given prn for hip pain. Tolerates bed repositioning well. Up to chair for meals with FWW and 2 person assist. Cooperative and compliant with care.
[2017-01-13] MEDS: Insulin LISPRO 300 Unit/3 mL Inj SUBQ SCH ×3 (17:52→22:46)
[2017-01-13 20:35] VITALS: BP 134/63; PULSE 51; RESP 16; O2SAT 98
[2017-01-13] MEDS: Insulin GLARgine 100 Unit/mL Syringe SUBQ SCH (22:47)
[2017-01-13] MEDS: Heparin 5,000 Unit/mL Inj SUBQ SCH (22:47)
[2017-01-14] MEDS: Sodium Chloride LOK Flush 10 mL Syringe IV SCH ×3 (00:30→17:18)
[2017-01-14] MEDS: HYDROcodone-APAP 5-325 mg Tablet PO PRN ×4 (00:33→22:03)
[2017-01-14 06:15] VITALS: BP 147/69; PULSE 81; RESP 16; O2SAT 95
[2017-01-14] MEDS: 0.9% Sodium Chloride 250 ML IV SCH (07:13)
[2017-01-14] MEDS: Pantoprazole 20 mg ER24 Tablet PO SCH (07:27)
--- NOTE | 2017-01-14 07:37 | NUR ---
Pain Patient up to bedside commode w/2person assist. Patient's pain has been managed well with oral pain medication. Vitals stable. Room air. Alert and oriented with some occasional confusion. Care continues.
[2017-01-14] MEDS: Senna-Docusate 8.6-50 mg Tablet PO SCH ×2 (08:30→21:50)
[2017-01-14] MEDS: Calcium Carbonate (Oyster Shell) 500 mg Tablet PO SCH ×2 (08:30→21:50)
[2017-01-14] MEDS: Insulin LISPRO 300 Unit/3 mL Inj SUBQ SCH ×7 (08:42→22:00)
[2017-01-14] MEDS: Heparin 5,000 Unit/mL Inj SUBQ SCH (08:52)
[2017-01-14 11:20] VITALS: BP 131/66; PULSE 72; RESP 15; O2SAT 96
--- NOTE | 2017-01-14 11:34 | PCM.PNMED ---
Subjective Date of Service Jan 14, 2017 Subjective Patient seen and examined. No complaints. Ready to go to [facility]. Vitals stable. Exam Vital Signs Vital Sign - Last Date Time Temp Pulse Resp B/P Pulse Ox O2 Delivery O2 Flow Rate FiO2 01/14/17 11:20 36.7 72 15 131/66 96 Room Air 01/10/17 00:12 2.00 Intake and Output 01/13/17 01/13/17 01/14/17 Cumulative From/Thru 15:00 23:00 07:00 01/06/17 21:52 - 01/14/17 06:45 Intake Total 520 ml 840 ml 600 ml 13663 ml Output Total 300 ml 100 ml 6651 ml Balance 520 ml 540 ml 500 ml 3464 ml Intake Oral 520 ml 840 ml 600 ml 7632 ml IV Total 1495 ml Platelets 988 ml Output Urine Total 300 ml 100 ml 6450 ml Stool Total 1 ml Estimated Blood Loss 200 ml # Voids 3 2 2 15 # Bowel Movements 1 0 10 Exam General: NAD, large body habitus, alopecia HEENT: NCAT Heart: RRR, no s3/s4 Lungs: Clear, no crackles or wheezes anteriorly Abd: Soft, NT/ND, normal bowel sounds Ext: No edema Vasc: Palpable pedal pulses Neuro: No focal deficits Psych: No anxiety, affect authoritative Neck: No JVD Lab and Diagnostics Result Diagram: 01/13/1785401/13/17854 X-Rays, CTs and MRIs PROCEDURE: CT LOWER EXTREMITY LEFT WITHOUT CONTRAST INDICATIONS: L hip fx TECHNIQUE: Noncontrast 3 mm axial sections acquired through the bony pelvis. Additional 3 mm axial sections acquired through the symptomatic hip joint, with coronal and sagittal reformats. COMPARISON: None. FINDINGS: Image quality: Excellent. Bones: There is a moderately displaced and moderately angulated comminuted fracture of the left intertrochanteric femur. Soft tissues: Visualized bowel loops grossly unremarkable. No focal fluid collections. IMPRESSION: Intertrochanteric hip fracture. Concordant with preliminary interpretation. Dictated by: Reyna Gracia M.D. on 01/07/2017 at 8:05 Approved by: Reyna Gracia M.D. on 01/07/2017 at 8:06 PROCEDURE: X-RAY CHEST ONE VIEW, PORTABLE ([id number]) INDICATIONS: preop, fall TECHNIQUE: One view of the chest was acquired. COMPARISON: [facility], CR, CHEST 2VW, 07/17/2012, 11:42. FINDINGS: Surgical changes and devices: None. Lungs and pleura: No pleural effusions or pneumothorax. Lungs are clear. Mediastinum: Mediastinal contours appear normal. Heart size is normal. Bones and chest wall: No suspicious bony lesions. Overlying soft tissues appear unremarkable. IMPRESSION: No acute process. Dictated by: Reyna Gracia M.D. on 01/07/2017 at 7:30 Approved by: Reyna Gracia M.D. on 01/07/2017 at 7:30 Assessment & Plan Patient is a 76-year-old female with a history of osteoporosis, arthritis, left hip fracture, and fibromyalgia who presents with left hip pain following a ground-level fall. Admitted for left hip fracture. Left hip fracture, acute. Present on admission s/p ORIF - s/p surgery - on oral pain meds - DVT prophylaxis: SCDs. We will avoid subcutaneous anticoagulation prophylactically given relatively low platelet count -Echocardiogram does reveal some mild aortic stenosis please see report above - Physical therap - patient refusing to go to SNF, wants to go home on 01/12 -- on 01/13 sgtabatha says she will go to [facility] on 01/13. Stated she does not like it there beause her is there and he is "pretty demented". Acute blood loss anemia after surgery stable - H&H stable - transfuse if < 7.0 - continue to monitor for any other sources of bleeding Osteoporosis, chronic. - In the context of 2 left hip fractures, any kind of trauma increases her risk. Needs outpatient workup - Continue vitamin D and calcium - Outpatient follow up Chronic Diabetes mellitus type 2 poorly controlled -We will check 4 times a day blood sugars -Hold metformin- -25 U HS lantus + TID Humalog 7 U + humalog Low SSI Thrombocytopenia, chronic stable - Pt has at least 6 year history of platelets in 90s-100s based on EMR. - continue to monitor, patient after 4 units of plt tranfusions for surgery -will hold heparin as patient has history of thrombocytopenia, plus as recommended by ortho, aspirin BID for prophylaxis GERD chronic stable - Protonix 20 mg daily - Bowel regimen as needed - Antiemetic as needed High Risk Meds: IV dilaudid Dispo: [facility] tomorrow. VTE Prophylaxis: SCDs, Other (aspirin 325 mg twice a day) VTE Mechanical Devices: Intermittant Pneumatic CD Resuscitation Status: CPR: Attempt Resuscitation Time spent 35 mins Tim Borrero MD Jan 14, 2017 11:34
[2017-01-14 12:01] LABS: BASOPHILS % (AUTO) 0.6 % (0-3); EOSINOPHILS % (AUTO) 2.1 % (0-5); MONOCYTES % (AUTO) 12.1 % (4-12); Mean Corpuscular Hemoglobin 31.7 pg (27.0-35.0); Mean Corpuscular Volume 96.7 fL (81-100); NEUTROPHILS % (AUTO) 65.6 % (40-74); Platelet Count 119 bil/L (150-400)
--- NOTE | 2017-01-14 17:29 | NUR ---
Activity Up to BSC and chair with gait belt, FWW and 2 person max assist.
--- NOTE | 2017-01-14 18:50 | NUR ---
Skin Blanchable redness and skin tear on upper medial buttocks. Continue q 2 hour turns, talia care and calmoseptine to area. No mepilex applied r/t occasional urinary incontinence.
[2017-01-14 21:30] VITALS: BP 148/62; PULSE 50; RESP 16; O2SAT 99
[2017-01-14] MEDS: Insulin GLARgine 100 Unit/mL Syringe SUBQ SCH (22:04)
[2017-01-15] MEDS: Sodium Chloride LOK Flush 10 mL Syringe IV SCH ×2 (00:30→08:26)
[2017-01-15] MEDS: HYDROcodone-APAP 5-325 mg Tablet PO PRN ×3 (04:49→13:50)
--- NOTE | 2017-01-15 05:13 | NUR ---
Skin/Pain Patient is alert and oriented. Pain controlled with Vicodin and Dilaudid for breakthrough pain. Patient has blanchable redness on buttocks, but is refusing repositioning, except when she asks. Calmoseptine applied to area. Patient is occasionally incontinent of urine. 2 person assist for transfers and repositioning. Bed down, rails up, call light in reach. Care continues.
[2017-01-15 05:45] VITALS: BP 123/71; PULSE 84; RESP 16; O2SAT 97
[2017-01-15] MEDS: 0.9% Sodium Chloride 250 ML IV SCH (07:30)
[2017-01-15 08:10] VITALS: BP 153/70; PULSE 78; RESP 19; O2SAT 97
[2017-01-15] MEDS: Calcium Carbonate (Oyster Shell) 500 mg Tablet PO SCH (08:26)
[2017-01-15] MEDS: Pantoprazole 20 mg ER24 Tablet PO SCH (08:26)
[2017-01-15] MEDS: Insulin LISPRO 300 Unit/3 mL Inj SUBQ SCH ×4 (08:27→12:36)
[2017-01-15] MEDS: Senna-Docusate 8.6-50 mg Tablet PO SCH (08:28)
--- NOTE | 2017-01-15 11:09 | NUR ---
CARE HOME TRANSFER : Called and spoke with Sola Jorge at [facility] and they will transport the patient at 1330. Addendum: 01/15/17 at 1154 by JOSHUA OVALLE Sola confirmed picker and sorter load and unload at 1345 with [facility] Addendum: 01/15/17 at 1300 by JOSHUA OVALLE Faxed all orders to [facility] and placed copy in the chart. Updated SUPERVISOR OVENS and RN about transportation
[2017-01-15 11:33] VITALS: BP 143/72; PULSE 77; RESP 19; O2SAT 97
--- NOTE | 2017-01-15 11:42 | PCM.DC.MED ---
Discharge Summary Date of Service Jan 15, 2017 Dates of Hospitalization Date of Hospital Admission Jan 07, 2017 at 00:49 Date of Discharge: Jan 15, 2017 Providers: Admitting Physician: Suyapa Parada DO Primary Care Physician: Jevon Muñoz MD Attending Physician: Marifer Eddy MD Procedures XRay, CTs & MRIs PROCEDURE: CT LOWER EXTREMITY LEFT WITHOUT CONTRAST INDICATIONS: L hip fx TECHNIQUE: Noncontrast 3 mm axial sections acquired through the bony pelvis. Additional 3 mm axial sections acquired through the symptomatic hip joint, with coronal and sagittal reformats. COMPARISON: None. FINDINGS: Image quality: Excellent. Bones: There is a moderately displaced and moderately angulated comminuted fracture of the left intertrochanteric femur. Soft tissues: Visualized bowel loops grossly unremarkable. No focal fluid collections. IMPRESSION: Intertrochanteric hip fracture. Concordant with preliminary interpretation. Dictated by: Reyna Gracia M.D. on 01/07/2017 at 8:05 Approved by: Reyna Gracia M.D. on 01/07/2017 at 8:06 PROCEDURE: X-RAY CHEST ONE VIEW, PORTABLE ([id number]) INDICATIONS: preop, fall TECHNIQUE: One view of the chest was acquired. COMPARISON: [facility], , CHEST 2VW, 07/17/2012, 11:42. FINDINGS: Surgical changes and devices: None. Lungs and pleura: No pleural effusions or pneumothorax. Lungs are clear. Mediastinum: Mediastinal contours appear normal. Heart size is normal. Bones and chest wall: No suspicious bony lesions. Overlying soft tissues appear unremarkable. IMPRESSION: No acute process. Dictated by: Reyna Gracia M.D. on 01/07/2017 at 7:30 Approved by: Reyna Gracia M.D. on 01/07/2017 at 7:30 Brief History Patient is a 76-year-old female with a history of osteoporosis, arthritis, left hip fracture, and fibromyalgia who presents with left hip pain following a ground-level fall. She currently lives in an adult living facility and was visiting her today when she slipped and fell on the pavement and landed on her left hip. She reports severe left hip pain but denies any other symptoms. She denies any head injury or loss of consciousness. She denies any dizziness or weakness directly prior to the fall. She states she has a couple of drinks every 1-2 days and had 2 drinks today, but states that she does not drink heavily on a regular basis. She denies any numbness or tingling, dizziness, nausea or vomiting. In the ED, heart rate was 109, respiratory rate 20, BP 141/81. Platelets 96, glucose 208. Alcohol level <10. Left hip x-ray noted a left hip fracture. Hospital Course Patient is a 76-year-old female with a history of osteoporosis, arthritis, left hip fracture, and fibromyalgia who presents with left hip pain following a ground-level fall. Admitted for left hip fracture. Left hip fracture, acute. Present on admission s/p ORIF - s/p surgery - on oral pain meds - DVT prophylaxis: EC aspirin 325 mg twice a day 6 weeks -Echocardiogram does reveal some mild aortic stenosis please see report above - Physical therapy at [facility] as per PT Acute blood loss anemia after surgery stable Osteoporosis, chronic. - In the context of 2 left hip fractures, any kind of trauma increases her risk. Needs outpatient workup - Continue vitamin D and calcium - Outpatient follow up Chronic Diabetes mellitus type 2 poorly controlled -We will check 4 times a day blood sugars - continue metformin at discharge -25 U HS lantus + TID Humalog 7 U Thrombocytopenia, chronic stable - Pt has at least 6 year history of platelets in 90s-100s based on EMR. - as recommended by ortho, aspirin BID for prophylaxis GERD chronic stable - Protonix 20 mg daily - Bowel regimen as needed - Antiemetic as needed High Risk Meds: IV dilaudid . Exam Vital Signs (Last) Date Time Temp Pulse Resp B/P Pulse Ox O2 Delivery O2 Flow Rate FiO2 01/15/17 11:33 36.6 77 19 143/72 97 Room Air 01/10/17 00:12 2.00 Test 01/06/17 22:15 01/07/17 02:30 01/07/17 08:30 01/08/17 05:12 Prothrombin Time 10.6sec (8.1-12.5) Prothromb Time International Ratio 0.99ratio Activated Partial Thromboplast Time 24.1sec (22.8-33.0) Alcohols < 10mg/dL (0-10) Urine Color Yellow (YELLOW) Urine Appearance Hazy (CLEAR,HAZY) Urine pH 7.0 (5.0-8.0) Urine Specific Hunt 1.025 (1.003-1.035) Urine Protein Negativemg/dL (NEG,TRACE) Urine Glucose (UA) 1000mg/dL (NEGATIVE) Urine Ketones Negativemg/dL (NEGATIVE) Urine Occult Blood Negative (NEGATIVE) Urine Nitrite Negative (NEGATIVE) Urine Bilirubin Negative (NEGATIVE) Urine Urobilinogen Normalmg/dL (NORMAL) Urine Leukocyte Esterase Negative (NEGATIVE) Urine RBC 0-2/hpf (0-2) Urine WBC 0-5/hpf (0-5) Urine Epithelial Cells Few/hpf (NONE-MOD) Urine Crystals None seen (NONE SEEN) Urine Bacteria None/hpf (NONE-FEW) Urine Hyaline Casts Rare/lpf (NONE) Urine Granular Casts None seen (NONE SEEN) Urine Waxy Casts None seen (NONE SEEN) Urine Red Blood Cell Casts None seen (NONE SEEN) Urine White Blood Cell Casts None seen (NONE SEEN) Urine Mucus Present (None Seen) Urine Trichomonas None seen (NONE SEEN) Urine Yeast None (NONE SEEN) Urinalysis Comment None Urine Culture Reflexed Not indicated Hemoglobin A1c 6.4% (4.8-5.6) Thyroid Stimulating Hormone (TSH) 1.500uIU/mL (0.450-4.500) Free Thyroxine Index 2.0 (1.2-4.9) Thyroxine (T4) 7.5ug/dL (4.5-12.0) Triiodothyronine (T3) Uptake 26% (24-39) Magnesium Level 1.6mg/dL (1.6-2.6) Test 01/10/17 05:11 01/13/17 08:55 01/14/17 11:45 Total Bilirubin 0.8mg/dL (0.0-1.2) Aspartate Amino Transf (AST/SGOT) 20U/L (0-50) Alanine Aminotransferase (ALT/SGPT) 17U/L (0-32) Alkaline Phosphatase 82U/L (25-165) Total Protein 5.7g/dL (6.4-8.4) Albumin 3.5g/dL (3.4-5.0) Sodium Level 137mEq/L (134-144) Potassium Level 3.4mEq/L (3.5-5.2) Chloride Level 98mEq/L (97-108) Carbon Dioxide Level 27mmol/L (18-29) Blood Urea Nitrogen 18mg/dL (8-27) Creatinine 0.37mg/dL (0.57-1.00) Estimat Glomerular Filtration Rate 244mL/min (>59) Glucose Level 249mg/dL (60-99) Calcium Level 8.4mg/dL (8.5-10.1) White Blood Count 4.7th/mm3 (3.8-10.1) Red Blood Count 2.46mil/mm3 (3.90-5.20) Hemoglobin 7.8g/dL (12.0-15.6) Hematocrit 23.8% (35.0-46.0) Mean Corpuscular Volume 96.7fL (81-100) Mean Corpuscular Hemoglobin 31.7pg (27.0-35.0) Mean Corpuscular Hemoglobin Concent 32.8% (32.0-37.0) Red Cell Distribution Width 13.4% (12.3-15.4) Platelet Count 119bil/L (150-400) Neutrophils (%) (Auto) 65.6% (40-74) Lymphocytes (%) (Auto) 19.0% (14-46) Monocytes (%) (Auto) 12.1% (4-12) Eosinophils (%) (Auto) 2.1% (0-5) Basophils (%) (Auto) 0.6% (0-3) Discharge Medications Discharge Medications Ascorbate Calcium (Vitamin C) 500 Mg Tablet 2 TAB PO DAILY (Reported) Aspirin (Aspirin) 325 Mg Tablet 325 MG PO BID Prescribed by: MARIFER EDDY MD Calcium Carbonate (Tums) 500 Mg Tab.chew 500 MG PO DAILY (Reported) Cholecalciferol (Vitamin D3) (Vitamin D3) 2,000 Unit Tablet 2,000 UNIT PO DAILY (Reported) Cranberry Conc/Ascorbic Acid (Cranberry 12,600 mg Softgel) 1 Each Capsule 1 EACH PO DAILY (Reported) Fexofenadine (Aller-Fex) 180 Mg Tablet 180 MG PO DAILY (Reported) Fluticasone Propionate (Fluticasone Propionate Nasal) 16 Gm Huntly.susp 1 SPRAY NS DAILY (Reported) Insulin Glargine (Lantus U100 Solostar Insulin Pen) 100 Unit/1 Ml Insuln.pen 40 UNIT SUBQ QPM-INSULIN (Reported) Ketoconazole (Ketoconazole) 15 Gm Cream..g. 15 GM TP BID (Reported) Lactobacillus Acidophilus (Probiotic) 1 Each Capsule 1 EACH PO DAILY (Reported) Magnesium Amino Acid Chelate (Magnesium) 27 Mg Tablet 1 TAB PO DAILY (Reported) Metformin (Glucophage) 500 Mg Tablet 500 MG PO DAILY (Reported) Multivitamin (Multivitamins) 1 Each Capsule 1 EACH PO DAILY (Reported) Nystatin/Triamcin (Nystatin-Triamcinolone Cream) 15 Gm Cream..g. 15 GM TP BID ( Reported) Omeprazole (Omeprazole) 20 Mg Capsule.dr 20 MG PO BID (Reported) Pepsin/Judith/Ox Bile/Lockhart/Bet/Pap (Enzymatic Digestant ER Tablet) 1 Each Tablet.er 1 EACH PO TIDWM (Reported) Sucralfate (Sucralfate) 1 Gm Tablet 1 GM PO QID (Reported) Vit B Comp/C/FA/Iron/Vit E (Vitamin B Complex Tablet) 1 Each Tablet 1 EACH PO DAILY (Reported) As needed Hydrocodone-Acetaminophen 5-325 mg (Hydrocodone-Acetaminophen 5-325 mg) 1 Each Tablet 1 TABLET PO Q4 PRN PRN For Mild Pain Prescribed by: MARIFER EDDY MD Hydrocodone-Acetaminophen 7.5-325 mg (Hydrocodone-Acetaminophen 7.5-325 mg) 1 Each Tablet 1 EACH PO Q6 PRN PRN For Pain (Reported) Followup Plan Follow-up plan Follow-up plan: In 2 weeks at [facility] with PA for wound check and at [address] Miller with x-rays Follow-up with PCP in: 1 week Time spent 35 mins Marifer Eddy MD Jan 15, 2017 11:42
--- NOTE | 2017-01-15 12:43 | NUR ---
Social Work: Discharge/Multidisciplinary Rounds D: EMR reviewed. Pt is on day 8 of hospitalization and medically stable for discharge to [facility] where she has been accepted with Dr. Wells to follow. SW notified Highway Traffic Control Technician who confirmed she will complete transfer packet, coordinate transport time, and fax discharge ppw to [facility]. Highway Traffic Control Technician confirmed transport time of 1345 today. RN/UA updated on transfer time. SW received MD order for pt to transfer via BLS. SW and MD met with pt at bedside and pt was up sitting in chair with no pain. Pt appropriate for wheelchair van transfer. Pt agreeable. SW updated pt and granddaughter on transport time, pt agreeable. Pt stated "I might just go to [facility] and leave." MD with SW at bedside confirming medical recommendations for SNF. Pt stated she has the right to go home with HH. MD and SW confirmed with pt and granddaughter Sirena Naundeon at bedside that pt could go home with HH if she had skilled nursing care or family to be with pt 13/11 due to medical needs for max assist with transfer and risk for falls. Pt stated "just get me to [facility]." Pt's granddaughter agreeable and requested DPOA ppw to complete for pt to change DPOA to granddaughter. SW provided DPOA ppw. No other SW needs identified at this time, no other MD orders received. A: Pt for whom a SNF is medically necessary P: Pt to discharge to [facility] with Dr. Wells to follow today via [facility] at 1345. Highway Traffic Control Technician completed transfer packet and faxed discharge ppw. UA/RN updated on transfer time, all agreeable. Pt and granddaughter updated on transfer time and discharge plan/MD recommendations (earliest opening date). SW to contact granddaughter Sirena Spaulding ([phone]) with any updates on pt's discharge plan. Sirena would like to follow pt to [facility] once ready for discharge - pt agreeable. No other SW needs at this time, SW will continue to follow. DAXA Elkins
[2017-01-15] MEDS ORDERED: HYDR-3825 PO (13:40)
--- NOTE | 2017-01-15 14:00 | NUR ---
Discharge Pt. discharged to [facility] via [facility] at 1400 in stable condition. Accompanied by family. Report called to MV RN at 1300. All belongings sent w/ pt. IV dc'd. No tele. No questions or concerns at this time.
== END 2017-01-15 14:00 | DRG 481 ==
LOC: SED 21:45 → EDUNIT# 21:45 → EDBD 21:45 → OSC 01-07 00:49
PROVIDERS: ADMIT Internal Medicine; ATTEND Internal Medicine
PROC: 30233R1 Transfusion of Nonautologous Platelets into Peripheral Vein, Percutaneous Approach (ICD-10-PCS; 2017-01-08)
PROC: 30233R1 Transfusion of Nonautologous Platelets into Peripheral Vein, Percutaneous Approach (ICD-10-PCS; 2017-01-09)
PROC: 0QS604Z Reposition Right Upper Femur with Internal Fixation Device, Open Approach (ICD-10-PCS; principal; 2017-01-09 16:00)
DX: M80.852A Other osteoporosis with current pathological fracture, left femur, initial encounter for fracture (principal); D62 Acute posthemorrhagic anemia; Z87.891 Personal history of nicotine dependence; D69.6 Thrombocytopenia, unspecified; K21.9 Gastro-esophageal reflux disease without esophagitis; Z79.4 Long term (current) use of insulin; E11.65 Type 2 diabetes mellitus with hyperglycemia

== ENCOUNTER 2017-01-18 20:27 | Inpatient (IN) | payer MEDICARE ==
[~2017-01-18] VITALS: Ht 149.9 cm; Wt 71.6 kg
[~2017-01-18 20:27] MED LIST changes: +ASCO-294 PO; -ASCO100089 PO; +ASPI325T32 PO; -ATEN25TA PO; -CALC500T61 PO; +CALC500T9 PO; -CHOL2000 PO; +CHOL200025 PO; -ENZY1CAP PO; +FLUT16SP NS; -FLUT16SP2 NS; +HYDR-4003 PO; -MULT-36 PO; +MULT1CAP33 PO; +PEPS1TAB11 PO; +VIT1TABL83 PO; -VITA1TAB17 PO
[2017-01-18 20:39] VITALS: BP 157/71; PULSE 103; RESP 16; O2SAT 99
--- NOTE | 2017-01-18 21:31 | ED.REPORT ---
HPI-Abd Pain F 40 and Over Date of Service Jan 18, 2017 ED Provider: Ajith Braun MD The patient is a 76 year old female with a history of hiatal hernia, fibromyalgia, osteoporosis, diverticulitis, bowel resection, asthma, COPD, GERD , arthritis, and DM presenting to the ED via EMS complaining of diarrhea onset 3 days ago. Additionally, she admits to abdominal pain. She claims to have been on antibiotics since her recent hip surgery. Denied symptoms include black or bloody stool, fever, nausea, chills, vomiting, or shortness of breath. Nursing Notes Stated Complaint: DIARRHEA Chief Complaint: Female Abdominal Pain Nursing Notes Reviewed: Yes Allergies: Coded Allergies: citalopram (Verified Allergy, Severe, SOB, DISORDERED THOUGHTS, 01/06/17) Dust (Verified Allergy, Intermediate, sinus allergies, 01/19/17) mold (Verified Allergy, Intermediate, sinus allergies, 01/19/17) sertraline (Verified Allergy, Intermediate, STUTTERING, 01/06/17) Sulfa (Sulfonamide Antibiotics) (Verified Allergy, Unknown, 01/06/17) nitrofurantoin (Verified Allergy, Unknown, 01/06/17) Uncoded Allergies: trees (Allergy, Intermediate, sinus allergies, 01/19/17) Scheduled ([vitamin b12]) PO DAILY Ascorbate Calcium (Vitamin C) 500 Mg Tablet 2 TAB PO DAILY Aspirin (Aspirin) 81 Mg Tablet 81 MG PO DAILY Cholecalciferol (Vitamin D3) (Vitamin D3) 2,000 Unit Tablet 2,000 UNIT PO DAILY Cranberry Conc/Ascorbic Acid (Cranberry 12,600 mg Softgel) 1 Each Capsule 1 EACH PO DAILY Fexofenadine (Aller-Fex) 180 Mg Tablet 180 MG PO DAILY Fluoxetine (Prozac) 20 Mg Capsule 40 MG PO DAILY Fluticasone Propionate (Fluticasone Propionate Nasal) 16 Gm [place].susp 1 SPRAY NS DAILY Insulin Glargine (Lantus U100 Solostar Insulin Pen) 100 Unit/1 Ml Insuln.pen 40 UNIT SUBQ QPM-INSULIN Ketoconazole (Ketoconazole) 15 Gm Cream..g. 15 GM TP BID Lactobacillus Acidophilus (Probiotic) 1 Each Capsule 1 EACH PO DAILY Magnesium Amino Acid Chelate (Magnesium) 27 Mg Tablet 1 TAB PO DAILY Metformin (Glucophage) 500 Mg Tablet 500 MG PO DAILY Multivitamin (Multivitamins) 1 Each Capsule 1 EACH PO DAILY Nystatin/Triamcin (Nystatin-Triamcinolone Cream) 15 Gm Cream..g. 15 GM TP BID Pepsin/Judith/Ox Bile/Lockhart/Bet/Pap (Enzymatic Digestant ER Tablet) 1 Each Tablet.er 1 EACH PO TIDWM Sucralfate (Sucralfate) 1 Gm Tablet 1 GM PO QID Vit B Comp/C/FA/Iron/Vit E (Vitamin B Complex Tablet) 1 Each Tablet 1 EACH PO DAILY Scheduled PRN Calcium Carbonate (Tums) 500 Mg Tab.chew 500 MG PO DAILY PRN PRN heartburn Hydrocodone-Acetaminophen 7.5-325 mg (Hydrocodone-Acetaminophen 7.5-325 mg) 1 Each Tablet 1 EACH PO Q6 PRN PRN For Pain General Time Seen by MD: 21:30 Chief Complaint Diarrhea severe Hx Obtained From: Patient Arrived By: Ambulance Sudden in Onset?: Yes Onset Occurred: 3 days ago Symptom Duration: Intermittent Recent Healthcare: Recent doctor visit, Recent hospitalization Similar Sx Previous: Yes Risk Factors )( AAA Risk Stratification Risk factors reviewed Past Medical History Past Medical History UTI Hydal Hernia Fibromyalgia Arthritis Osteoporosis 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 Physical Exam Vital Signs Vital Signs (First) Date Time Temp Pulse Resp B/P Pulse Ox O2 Delivery O2 Flow Rate FiO2 01/18/17 20:39 36.9 103 16 157/71 99 Room Air Initial VS: Reviewed Head / Eyes: Atraumatic, Normocephalic ENT: Mucous membranes moist Neck: Supple, Non-tender, Full range of motion Lymphatic: No lymphadenopathy Extremities: Vascular intact, Neuro intact Neurologic: Alert, Oriented Psychiatric: Mood/affect normal General/Constitutional: Awake, Alert, No acute distress Obese Stool smeared all over Respiratory / Chest: Atraumatic, Breath sounds NL, Breath sounds = bilat, No respiratory distress Cardiovascular: Heart rate NL, Regular rhythm, Heart sounds NL Abdomen: Atraumatic, Soft benign belly multiple hernias anteriorly Back: Atraumatic, Inspection NL, Non-tender Skin: Atraumatic, Warm, Dry Clean wound on left lateral hip from surgery; healing well Interpretation & Diagnostics Lab Results Interpretation Result Diagram: 01/18/17 2302 01/18/17 2302 Test 01/18/17 22:20 01/18/17 23:02 Urine Color Yellow (YELLOW) Urine Appearance Clear (CLEAR,HAZY) Urine pH 7.0 (5.0-8.0) Urine Specific [place] 1.010 (1.003-1.035) Urine Protein Negativemg/dL (NEG,TRACE) Urine Glucose (UA) Negativemg/dL (NEGATIVE) Urine Ketones 15mg/dL (NEGATIVE) Urine Occult Blood Negative (NEGATIVE) Urine Nitrite Negative (NEGATIVE) Urine Bilirubin Negative (NEGATIVE) Urine Urobilinogen Normalmg/dL (NORMAL) Urine Leukocyte Esterase Negative (NEGATIVE) Urine RBC 0-2/hpf (0-2) Urine WBC 0-5/hpf (0-5) Urine Epithelial Cells Occasional/hpf (NONE-MOD) Urine Crystals None seen (NONE SEEN) Urine Bacteria Few/hpf (NONE-FEW) Urine Hyaline Casts None/lpf (NONE) Urine Granular Casts None seen (NONE SEEN) Urine Waxy Casts None seen (NONE SEEN) Urine Red Blood Cell Casts None seen (NONE SEEN) Urine White Blood Cell Casts None seen (NONE SEEN) Urine Mucus None seen (None Seen) Urine Trichomonas None seen (NONE SEEN) Urine Yeast None (NONE SEEN) Urinalysis Comment None Urine Culture Reflexed Not indicated White Blood Count 10.3th/mm3 (3.8-10.1) Red Blood Count 3.12mil/mm3 (3.90-5.20) Hemoglobin 10.0g/dL (12.0-15.6) Hematocrit 30.4% (35.0-46.0) Mean Corpuscular Volume 97.4fL (81-100) Mean Corpuscular Hemoglobin 32.1pg (27.0-35.0) Mean Corpuscular Hemoglobin Concent 32.9% (32.0-37.0) Red Cell Distribution Width 15.0% (12.3-15.4) Platelet Count 136bil/L (150-400) Neutrophils (%) (Auto) 85.1% (40-74) Lymphocytes (%) (Auto) 8.6% (14-46) Monocytes (%) (Auto) 5.0% (4-12) Eosinophils (%) (Auto) 0.4% (0-5) Basophils (%) (Auto) 0.2% (0-3) Prothrombin Time 10.6sec (8.1-12.5) Prothromb Time International Ratio 0.99ratio Sodium Level 135mEq/L (134-144) Potassium Level 4.2mEq/L (3.5-5.2) Chloride Level 95mEq/L (97-108) Carbon Dioxide Level 25mmol/L (18-29) Blood Urea Nitrogen 11mg/dL (8-27) Creatinine 0.32mg/dL (0.57-1.00) Estimat Glomerular Filtration Rate 288mL/min (>59) Glucose Level 186mg/dL (60-99) Calcium Level 9.3mg/dL (8.5-10.1) Magnesium Level 1.8mg/dL (1.6-2.6) Total Bilirubin 1.4mg/dL (0.0-1.2) Aspartate Amino Transf (AST/SGOT) 28U/L (0-50) Alanine Aminotransferase (ALT/SGPT) 19U/L (0-32) Alkaline Phosphatase 168U/L (25-165) Total Protein 7.2g/dL (6.4-8.4) Albumin 3.9g/dL (3.4-5.0) Lipase 27U/L (13-60) CT Abd / Pelvis Interpretation CONCLUSION: No acute intra-abdominal abnormality. Borderline splenomegaly. Cholescystectomy and hysterectomy. Multiple fat-containing abdominal wall hernias without bowel involvement. No signs of obstruction. This report was transmitted to the emergency room at 01/19/2017 - 1:00:19 AM PDT. Study type: Abdominal CT IV contrast Interpretation / Wet Read by: Interpret - Radiologist Re-Eval/Medical Decision Med Decision/Clinical Course 76-year-old with three days of constant and worsening diarrhea. She was found on the floor of her home by ambulance personnel, having been incontinent of considerable stool. Her stool is heme positive. PCR for C. difficile is pending. Unable to be certain that she has been on antibiotics, but she was at least on antibiotics within the past month after surgery. Admitted now for IV fluid support, reestablishment of oral intake and adequate hydration. Begun with oral vancomycin. Re-Evaluation/Progress : Time of Eval: 00:27 Re-Evaluation/Progress Note: Patient rechecked. Discussed lab results and plan to admit. All questions addressed at this time. Consultation : Referral / Consult Name: Suyapa Parada DO Consulted With: Hospitalist Call Returned at: 01:43 Data Entry Technician: Will see patient, Agrees with plan, Accepts admit Counseled Regarding: Diagnosis, Lab results, Need for admission Discharge & Departure Primary Impression: Diarrhea Diarrhea type: unspecified type Qualified Code: R19.7 - Diarrhea, unspecified Additional Impressions: Dehydration C. difficile colitis Heme positive stool Disposition: ADMITTED TO HOSPITAL Discharge Condition All VS Reviewed: Yes Condition: Stable Referrals: Jevon Muñoz MD (PCP) Scribe Attestation Portions of this note were transcribed by Mahendra Driver. I, Dr. Braun personally performed the history, physical exam and medical decision-making; I reviewed and confirmed the accuracy of the information in the transcribed note. Signed by: Eulogio Aorra, 01/18/2017 copies to: Jevon Muñoz MD, Christopher W MD Jan 18, 2017 21:31 Jan 18, 2017 22:21
[2017-01-18] MEDS ORDERED: 0.9% Sodium Chloride 1,000 ML IV ONE (21:37)
[2017-01-18 22:35] LABS: APPEARANCE,URINE CLEAR (CLEAR,HAZY); COLOR,URINE YELLOW (YELLOW); OCCULT BLOOD,URINE NEGATIVE (NEGATIVE); UROBILINOGEN,URINE NORMAL (NORMAL)
[2017-01-18 23:07] LABS: BASOPHILS % (AUTO) 0.2 % (0-3); EOSINOPHILS % (AUTO) 0.4 % (0-5); Mean Corpuscular Hemoglobin 32.1 pg (27.0-35.0); Mean Corpuscular Volume 97.4 fL (81-100); NEUTROPHILS % (AUTO) 85.1 % (40-74); Platelet Count 136 bil/L (150-400)
[2017-01-18 23:26] LABS: INR 0.99 ratio
[2017-01-18 23:37] LABS: Magnesium 1.8 mg/dL (1.6-2.6)
[2017-01-19] VITALS (10 sets, daily range): BP systolic 120–160; BP diastolic 69–91; PULSE 63–109; RESP 16–18; O2SAT 95–98
[2017-01-19] MEDS ORDERED: Ondansetron 2 mg/mL 2 mL Inj IVPUSH PRN (01:50)
[2017-01-19] MEDS ORDERED: Polyethylene Glycol (PEG) 17 Gm Powder PO PRN (01:50)
[2017-01-19] MEDS ORDERED: Alum-Mag Hydrox-Simeth 30 mL Suspension PO PRN (01:50)
[2017-01-19] MEDS: Vancomycin 125 mg Oral Capsule PO SCH ×4 (02:38→20:40)
--- NOTE | 2017-01-19 03:16 | PCM.HPMED ---
Subjective Date of Service Jan 19, 2017 Primary Provider: Admitting Physician: Suyapa Parada DO Primary Care Physician: Jevon Muñoz MD Attending Physician: Suyapa Parada DO Admit Status: From the Emergency Department Chief Complaint: weakness, diarrhea History of Present Illness: Patient is a 76-year-old female with a history of osteoporosis, arthritis, left hip fracture admitted due to inability to care for self and diarrhea Patient was admitted from 01/07-01/15 with a hip fracture. She was discharged to a SNF and left AMA after she found she was unable to leave to home for a couple of hours. Once home she realized that she was unable to get help from friends and family as promised. She then began to have problems with large volume diarrhea. Patient states that she has had difficulties with diarrhea in the past but never to this degree. Unfortunately, she was unable to ambulate and get to the toilet when her diarrheal episodes started 12 hours prior to presentation and soiled herself and her apartment. The diarrhea is characterized as dark brown and without hematochezia. In the ED stool PCR was sent and patient was noted to be guaiac positive. Review of Systems: complete review of systems obtained. positive as per hpi otherwise negative Allergies Coded Allergies: citalopram (Verified Allergy, Severe, SOB, DISORDERED THOUGHTS, 01/06/17) sertraline (Verified Allergy, Intermediate, STUTTERING, 01/06/17) Sulfa (Sulfonamide Antibiotics) (Verified Allergy, Unknown, 01/06/17) nitrofurantoin (Verified Allergy, Unknown, 01/06/17) Home Medications discharge medications 01/15/2017 Discharge Medications Ascorbate Calcium (Vitamin C) 500 Mg Tablet 2 TAB PO DAILY (Reported) Aspirin (Aspirin) 325 Mg Tablet 325 MG PO BID Prescribed by: MARIFER EDDY MD Calcium Carbonate (Tums) 500 Mg Tab.chew 500 MG PO DAILY (Reported) Cholecalciferol (Vitamin D3) (Vitamin D3) 2,000 Unit Tablet 2,000 UNIT PO DAILY (Reported) Cranberry Conc/Ascorbic Acid (Cranberry 12,600 mg Softgel) 1 Each Capsule 1 EACH PO DAILY (Reported) Fexofenadine (Aller-Fex) 180 Mg Tablet 180 MG PO DAILY (Reported) Fluticasone Propionate (Fluticasone Propionate Nasal) 16 Gm Wallace.susp 1 SPRAY NS DAILY (Reported) Insulin Glargine (Lantus U100 Solostar Insulin Pen) 100 Unit/1 Ml Insuln.pen 40 UNIT SUBQ QPM-INSULIN (Reported) Ketoconazole (Ketoconazole) 15 Gm Cream..g. 15 GM TP BID (Reported) Lactobacillus Acidophilus (Probiotic) 1 Each Capsule 1 EACH PO DAILY (Reported) Magnesium Amino Acid Chelate (Magnesium) 27 Mg Tablet 1 TAB PO DAILY (Reported) Metformin (Glucophage) 500 Mg Tablet 500 MG PO DAILY (Reported) Multivitamin (Multivitamins) 1 Each Capsule 1 EACH PO DAILY (Reported) Nystatin/Triamcin (Nystatin-Triamcinolone Cream) 15 Gm Cream..g. 15 GM TP BID ( Reported) Omeprazole (Omeprazole) 20 Mg Capsule.dr 20 MG PO BID (Reported) Pepsin/Judith/Ox Bile/Lockhart/Bet/Pap (Enzymatic Digestant ER Tablet) 1 Each Tablet.er 1 EACH PO TIDWM (Reported) Sucralfate (Sucralfate) 1 Gm Tablet 1 GM PO QID (Reported) Vit B Comp/C/FA/Iron/Vit E (Vitamin B Complex Tablet) 1 Each Tablet 1 EACH PO DAILY (Reported) As needed Hydrocodone-Acetaminophen 5-325 mg (Hydrocodone-Acetaminophen 5-325 mg) 1 Each Tablet 1 TABLET PO Q4 PRN PRN For Mild Pain Prescribed by: MARIFER EDDY MD Hydrocodone-Acetaminophen 7.5-325 mg (Hydrocodone-Acetaminophen 7.5-325 mg) 1 Each Tablet 1 EACH PO Q6 PRN PRN For Pain (Reported) PMH UTI Hiatall Hernia Fibromyalgia Arthritis Osteoporosis Oral leukoplakia Heart murmur with reported "irregular hear beat" Diverticulitis Diabetes mellitus Surgical History Hernia in stomach with stomach overhang removal Uterus repair with rectal repair Appendectomy Cholecystectomy Family History Mother: Osteoporosis, of [place] in her 60s Social History Hx Alcohol Use: Yes Hx Tobacco Use: No Smoking Status: Former Smoker Exam Vital Signs Vital Sign - Last Date Time Temp Pulse Resp B/P Pulse Ox O2 Delivery O2 Flow Rate FiO2 01/19/17 02:33 37 108 18 136/77 98 Room Air Intake and Output 01/18/17 01/18/17 01/19/17 Cumulative From/Thru 15:00 23:00 07:00 01/18/17 20:39 - 01/18/17 22:22 Intake Total 1000 ml 1000 ml Balance 1000 ml 1000 ml Intake IV Total 1000 ml 1000 ml Exam General: Alert, Oriented X3, Cooperative, No acute Distress due to pain Eyes: PERRLA, Scleral Anicteric Mouth: Mouth Normal, Mucous Membranes Moist/[place] Neck: Supple, no Thyromegaly, trachea central. Chest & Lungs: Clear to auscultation & percussion, No adventitious breath sounds, no crackles, no wheeze Cardiovascular: Normal S1, Normal S2, No Murmurs/Rubs/Gallops, Regular Rate/ Rhythm Pulses: Radial (present and equal), Dorsalis Pedi (present and equal) Abdomen: Soft,Non-tender, Non-distended, Normoactive bowel tones. Musculoskeletal: Unremarkable. Normal range of motion, no swollen or erythematous joints Extremities: No edema, no cyanosis, no clubbing. Skin: No rashes. Warm and dry, no erythematous areas Neurological: Grossly neurologically intact, Normal Speech, Sensation Intact Lymphatic: Lymph nodes Cervical and Axillary not palpable. Lab and Diagnostics Result Diagram: 01/18/17230101/18/172301 Assessment & Plan Patient is a 76-year-old female with a history of osteoporosis, arthritis, left hip fracture admitted due to inability to care for self and diarrhea Diarrhea, acute, POA -recent abx exposure, SNF exposure and hospitalization -no recent ill contacts -isolation enteric -PCR pending -vanc PO 125mg po initiated in ED, will continue Generalized weakness, acute, POA -recent hip fx and hospitalization -physical therapy eval and treatment -recently left ama from SNF, may require SNF on discharge Osteoporosis, chronic. - recent hip fx x2 - continue to monitor as an outpatient Diabetes mellitus type 2 - BG elevated on admission. HbA1c 6.1 on 11/24/16. - Lantus 20 U qhs (normally 40U, half until taking full PO) - Hold metformin Thrombocytopenia, chronic - Pt has at least 6 year history of platelets in 90s-100s based on EMR. - Continue to monitor GERD - Protonix held on admission - Bowel regimen as needed - Antiemetic as needed Patient is admitted under inpatient status and will be admitted >2 midnights due to severity of illness. Pain Evaluation: Adequate Pain Control GI Prophylaxis: Not indicated VTE Prophylaxis: SCDs Resuscitation Status: CPR: Attempt Resuscitation Suyapa Parada DO Jan 19, 2017 03:16
[2017-01-19] MEDS: 0.9% Sodium Chloride 1,000 ML IV SCH ×3 (03:45→23:15)
[2017-01-19] MEDS ORDERED: Glucose 40% Oral Gel 15 Gm Tube PO PRN (04:05)
[2017-01-19] MEDS ORDERED: ASPI-973 PO (04:14)
[2017-01-19] MEDS ORDERED: PROZ20 PO (04:14)
[2017-01-19] MEDS ORDERED: vitamin b12 PO (04:15)
--- NOTE | 2017-01-19 05:17 | NUR ---
Admit Pt received from ED after pt brought in by medics. PT left [facility] AMA on Sunday and was unable to care for self at home. Found by medics with stool all over the place from uncontrolled diarrhea. PT had recent L hip pinning with eduar still present. Large bruises noted r/t to fall. PT not ambulating at this time and RN unsure of weight bearing restrictions at this time. MD will clarify. Moderate pain noted with movement. PT on CP for cdiff. PCR sent this shift as well as stool guiac. PT uses briefs as bedpan is too painful and calls for assistance for care after. Buttocks slightly excoriated. Berto wipes and calmaseptine used for talia care. PT alert and oriented, but has questionable hx of bipolar and does seem a bit manic at this time. VS WNL. NS infusing per order. WIll CTM.
--- NOTE | 2017-01-19 08:01 | DRSVH ---
PROCEDURE: CT ABDOMEN AND PELVIS WITH CONTRAST ([id number]) INDICATIONS: diarrhea, pain, elevated bili and alk phos TECHNIQUE: After the administration of intravenous contrast, 5 mm thick sections acquired from the diaphragm to the symphysis. 5 mm coronal and sagittal reformats were acquired. For radiation dose reduction, the following was used: automated exposure control, adjustment of mA and/or kV according to patient siaaliyah nair. COMPARISON: [facility], CT, CT LOWER EXTREMITY LT WO CON, 01/07/2017, 1:13. FINDINGS: Image quality: Excellent. ABDOMEN: Lung bases: Lung bases are clear. Heart size is normal. Solid organs: Cholecystectomy. Mild nodular confirmation to the liver most consistent with cirrhosis. Splenomegaly. Portal venous system is patent. Minimal upper abdominal varices. Punctate nonobstructi ng right renal calculus. No hydronephrosis or ureterectasis. No solid renal renal masses. Peritoneum and bowel: Bowel loops demonstrate normal wall thickness and caliber. No free fluid or a ir. Nodes and vessels: No retroperitoneal or mesenteric adenopathy by size criteria. Aorta and inferior vena cava are normal in size. Miscellaneous: Small anterior abdominal wall hernias with associated postoperative change. PELVIS: Genitourinary: Bladder wall thickness is normal. The bladder contains gas likely related to cathete rization. Miscellaneous: No inguinal hernias or adenopathy. Left hip postoperative change and contusion in th e soft tissues. There is a 2.2 cm focus of increased density in the left gluteal musculature. Presacr al soft tissue postoperative change. Bones: There is a new lucent lesion in the right paracentral sacrum measuring 3.3 x 2.5 x 1.9 CM whic h extends to and may involve the right sacroiliac joint and abuts the right first S1 neural foramen. There is a left proximal femoral intramedullary nancy.. No vertebral body compression fractures. IMPRESSION: 1. No CT evidence of acute intra-abdominal pathology. 2. Focus of increased density in the left-sided gluteal musculature most consistent with acute blood products. An underlying enhancing mass is less likely. 3. There is a new right paracentral sacral lucent lesion which is indeterminate but may represent a m etastatic lesion. 4. Recommend pelvic MRI with and without contrast for further evaluation. Findings #2 and 3 represent discrepancies with the preliminary report. Findings and recommendations discussed with Herminio the jose ent's nurse via telephone ([phone]) at 7:50 AM on 01/19/2017. 5. Blood products about a recent proximal left hip fracture. 6. Possible cirrhosis with splenomegaly. Dictated by: Darrell Lipscomb M.D. on 01/19/2017 at 7:39 Approved by: Darrell Lipscomb M.D. on 01/19/2017 at 7:58
[2017-01-19] MEDS ORDERED: DiphenOXYlate-Atropine 2.5 mg-0.025 mg Tablet PO PRN (10:45)
[2017-01-19] MEDS: Insulin LISPRO 300 Unit/3 mL Inj SUBQ SCH ×4 (10:45→20:49)
[2017-01-19] MEDS: Sucralfate 1,000 mg Tablet PO SCH ×3 (11:30→22:31)
[2017-01-19] MEDS: Fluticasone 0.05% 15 Spray/2 Gm 16 Gm Nasal Spray NASAL SCH ×2 (11:45→14:25)
--- NOTE | 2017-01-19 11:45 | PCM.PNMED ---
Subjective Date of Service Jan 19, 2017 Subjective She is having some hip pain with movement this is mostly manageable. She continues to have frequent loose stools. Some abdominal cramping. No fevers or chills. No nausea or vomiting. She denies any dyspnea, palpitations or chest pain. No critical overnight events noted. Exam Vital Signs Vital Sign - Last Date Time Temp Pulse Resp B/P Pulse Ox O2 Delivery O2 Flow Rate FiO2 01/19/17 08:00 100 01/19/17 06:40 37.1 16 120/75 95 Room Air Intake and Output 01/18/17 01/18/17 01/19/17 Cumulative From/Thru 15:00 23:00 07:00 01/18/17 20:39 - 01/19/17 06:40 Intake Total 1000 ml 300 ml 1300 ml Balance 1000 ml 300 ml 1300 ml Intake Oral 300 ml 300 ml IV Total 1000 ml 1000 ml # Bowel Movements 1 1 Exam Alert and oriented 3, no distress. Fluent speech. Anicteric sclera. No facial droop. Neck supple Lungs are clear with normal rate and effort. Heart is regular without murmur gallop or Abdomen is soft nontender and nondistended Extremities are free of edema, good pedal and radial pulses. IVs and Medications Medications Reviewed: Medications were reviewed in detail Lab and Diagnostics Result Diagram: 01/18/17230101/18/172301 Assessment & Plan Patient is a 76-year-old female with a history of osteoporosis, arthritis, left hip fracture admitted due to inability to care for self and diarrhea #. Diarrhea, acute and active, present on admission. -recent abx exposure, SNF exposure and hospitalization -no recent ill contacts -isolation enteric will be discontinued. -PCR is negative -Vancomycin will be stopped. Imodium will be started. #. Generalized weakness, acute and active, and present on admission. -recent hip fx and hospitalization -physical therapy eval and treatment -recently left ama from SNF, may require SNF on discharge but she prefers home health. #. Osteoporosis, wasn't on admission and active. - recent hip fx x2 - continue to monitor as an outpatient. Physical therapy. Continue vitamin D and calcium. #. Diabetes mellitus type 2, present on admission and stable. - BG elevated on admission. HbA1c 6.1 on 11/24/16. - Lantus 20 U qhs (normally 40U, half until taking full PO) - Hold metformin. No changes to this approach. #. Thrombocytopenia, present on admission, chronic and active. - Pt has at least 6 year history of platelets in 90s-100s based on EMR. - Continue to monitor #. Gastroesophageal reflux, present on admission and stable. - Protonix will be continued. #. Bipolar, present on admission and active. We'll resume her usual medications per her request. - Bowel regimen as needed - Antiemetic as needed Patient is admitted under inpatient status and will be admitted >2 midnights due to severity of illness. Anticipate discharge likely home with home health within the next 48 hours, possibly Sunday, January 21. We'll evaluate her for home health social work as well as physical therapy. GI Prophylaxis: Not indicated VTE Prophylaxis: SCDs VTE Mechanical Devices: Intermittant Pneumatic CD Resuscitation Status: CPR: Attempt Resuscitation Brendon Benavidez MD Jan 19, 2017 11:44
--- NOTE | 2017-01-19 15:53 | NUR ---
spiritual care: pt request Visited with pt who was very grateful to have a credit operations processor visit. Pt stated that she is bipolar and has a difficult relationship with her family at this time. Pt has a who has Alzheimer's disease and is currently living at [facility]. Pt has a deep bon and attends [employer] in [place]. Spoke about family, forgiveness, and marriage. Prayed with pt at her request. Spiritual care will continue to follow as needed.
--- NOTE | 2017-01-19 17:17 | NUR ---
Social Work: Initial Assessment / Multidisciplinary Rounds Data: See initial assessment. Patient is a 76 year old female who was admitted on 01/19/17 for diarrhea, abdominal pain per H&P. Patient's insurance is Medicare & AARP Supp. Patient's PCP is Dr. Norma Quan. EMR reviewed. SW visited patient's room to discuss discharge planning. SW role explained. Patient reports that she previously discharged from [facility] on 01/15 to [facility]. Patient states that she recently left AMA. Patient has returned back to her apartment in [place] where she lives alone. Patient considers her granddaughter Dhara to be her main source of support. Patient denies having a DPOA or AD and received information during previous admission. Patient reports that she is I with the assistance of a walker and is able to perform all of her ADLs and care needs. Patient has a hx of home health PT and RN when she resided in the [facility]. Patient denies having usp care insurance or VA benefits. Upon discharge, patient will likely discharge home. Transportation will be provided by her granddaughter. SW provided patient with a discharge planning checklist booklet and encouraged her to call with any questions on concerns. Phone number provided. SW will continue to follow. Assessment: Patient will likely discharge home when medically stable. Plan: Patient will likely discharge home when medically stable. Transportation will be provided by family. SW will continue to follow for needs. DAXA Van Addendum: 01/19/17 at 1725 by SYDNEY UNDERWOOD Amended: Links added.
--- NOTE | 2017-01-19 19:33 | NUR ---
Diarrhea Cardiac: Pt denies CP, tele: SR 90-100s Resp: Pt denies SOB. SPO2 mid 90s on RA. GI/: Pt has had diarrhea twice this shift. Second time less copious following antidiarrheal med. Pt reports it is too painful to use the bedpan. Neuro: A&Ox3, Pt does not want to mobilize due to recent hip surgery. Pt's mood is subject to swings from manic to depressed, but is aware of her proclivities and is redirectable.
[2017-01-19] MEDS: HYDROcodone-APAP 7.5-325 mg Tablet PO PRN (19:51)
[2017-01-19] MEDS: Insulin GLARgine 100 Unit/mL Syringe SUBQ SCH (20:50)
--- NOTE | 2017-01-19 21:35 | NUR ---
Family concern Patient's marbjhvt-oh-dst, Grecia, called this RN with concern about patient's mental status. Grecia reported that patient is "the most manic that I have ever heard her", that it isn't safe for patient to return home and that she is unable to care for herself. Grecia asked if a psychiatric evaluation has been done- informed caller that I would have to ask patient for permission to discuss her care, Grecia declined, said that if patient knew she was calling, patient would be "really mad and get mean." Will pass on to day RN to discuss with MD ordering a psychiatric consultation, per family request.
[2017-01-20] VITALS (7 sets, daily range): BP systolic 120–154; BP diastolic 65–84; PULSE 89–103; RESP 18; O2SAT 94–97
[2017-01-20] MEDS: HYDROcodone-APAP 7.5-325 mg Tablet PO PRN ×4 (01:20→21:29)
[2017-01-20] MEDS: Vancomycin 125 mg Oral Capsule PO SCH ×2 (01:51→08:07)
--- NOTE | 2017-01-20 03:54 | NUR ---
Behavior Patient was pleasant and cooperative from 1900 until about 2129. Around this time, patient became very demanding with repositioning, but would yell and swear at staff as we attempted to reposition her, and would change her mind as soon as we repositioned her as she requested. Patient tried to refuse linens being changed at this time, but was laying in soiled cloths. Patient would yell, "I don't care if I'm wet! Just move me!" Used call light as soon as staff exited room to be repositioned again (about every two minutes). Requested muscle relaxer for left buttock spasm, gave new order, administered medication. Applied ice, heat, gave PRN pain medication, repositioned patient and pillows per her requests. Patient continued to yell and was verbally abrasive to staff until about midnight. At this time, patient changed to calm behavior, cooperative, apologized many times for her yelling. Patient has since been very pleasant. Intentional rounding in place, bed alarm on, call light within reach for patient safety.
[2017-01-20] MEDS: Fluticasone 0.05% 15 Spray/2 Gm 16 Gm Nasal Spray NASAL SCH (08:08)
[2017-01-20] MEDS: Insulin LISPRO 300 Unit/3 mL Inj SUBQ SCH ×4 (08:09→21:30)
[2017-01-20] MEDS: Sucralfate 1,000 mg Tablet PO SCH ×4 (08:10→21:28)
[2017-01-20 08:56] LABS: Mean Corpuscular Hemoglobin 31.9 pg (27.0-35.0); Mean Corpuscular Volume 97.1 fL (81-100)
--- NOTE | 2017-01-20 10:58 | PCM.PNMED ---
Subjective Date of Service Jan 20, 2017 Subjective The patient was more agitated overnight. She was apparently yelling at staff. Family members are concerned that she is manic. She does state a history of bipolar. Her diarrhea has improved since arriving here. No chest pain, palpitations. No shortness of breath. No abdominal pain. No critical overnight events noted. Patient's behavior is noted in nursing notes. Exam Vital Signs Vital Sign - Last Date Time Temp Pulse Resp B/P Pulse Ox O2 Delivery O2 Flow Rate FiO2 01/20/17 07:29 36.8 95 18 120/75 94 Room Air Intake and Output 01/19/17 01/19/17 01/20/17 Cumulative From/Thru 15:00 23:00 07:00 01/18/17 20:39 - 01/20/17 05:10 Intake Total 2165 ml 400 ml 3865 ml Balance 2165 ml 400 ml 3865 ml Intake Oral 975 ml 400 ml 1675 ml IV Total 1190 ml 2190 ml # Voids 5 3 8 # Bowel Movements 2 3 Exam Alert and oriented 3. Somewhat agitated. Anicteric sclera, Neck is supple Lungs are clear with normal rate and effort Heart is regular without murmur gallop or rub Abdomen is soft, nontender Extremities are free of edema Skin is free of rash or lesions. IVs and Medications Medications Reviewed: Medications were reviewed in detail Lab and Diagnostics Result Diagram: 01/20/1782701/20/17827 Assessment & Plan Patient is a 76-year-old female with a history of osteoporosis, arthritis, left hip fracture admitted due to inability to care for self and diarrhea #. Agitated behavior, new and active. This patient has told me she has history of bipolar. Her family has expressed concerns over the phone of manic activity. The patient has questionable judgment at this point. We'll request a psychiatry consultation to see what they recommended can terms of medications and other care. #. Diarrhea, acute and active, present on admission and improved. -C. difficile toxin is negative Imodium will be started as needed. This point the diarrhea seems to resolved. #. Generalized weakness, acute and active, and present on admission. -recent hip fx and hospitalization -physical therapy eval and treatment -recently left [facility] from SNF, may require SNF on discharge but she prefers home health. Physical therapy evaluation discharge planning will follow. #. Osteoporosis, wasn't on admission and active. - recent hip fx x2 - continue to monitor as an outpatient. Physical therapy. Continue vitamin D and calcium. #. Diabetes mellitus type 2, present on admission and stable. - BG elevated on admission. HbA1c 6.1 on 11/24/16. - Lantus 20 U qhs (normally 40U, half until taking full PO) - Hold metformin. No changes to this approach. Stable. #. Thrombocytopenia, present on admission, chronic and active. - Pt has at least 6 year history of platelets in 90s-100s based on EMR. - Continue to monitor, stable. #. Gastroesophageal reflux, present on admission and stable. - Protonix will be continued. Awaiting psychiatry input prior to more detailed discharge planning. Inpatient status - Bowel regimen as needed - Antiemetic as needed Patient is admitted under inpatient status and will be admitted >2 midnights due to severity of illness. Anticipate discharge likely home with home health within the next 48 hours, possibly January 21. We'll evaluate her for home health social work as well as physical therapy. GI Prophylaxis: Not indicated VTE Prophylaxis: SCDs VTE Mechanical Devices: Intermittant Pneumatic CD Resuscitation Status: CPR: Attempt Resuscitation Brendon Benavidez MD Jan 20, 2017 10:58
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
--- NOTE | 2017-01-20 15:10 | NUR ---
Evaluation completed. Please go to "Notes" then click on "Assessments and Notes" (bottom left corner of screen). Then select appropriate discipline tab on top of screen.
[2017-01-20] MEDS ORDERED: .Epic Conversion Completed XX PRN (17:10)
--- NOTE | 2017-01-20 17:31 | NUR ---
Activity: PT and DEMURRAGE AGENT assisted to chair using FWW. Up for approx 2-3hrs, tolerated well. Patient states hip discomfort tolerable at 3/10 while up.
[2017-01-20] MEDS: Insulin GLARgine 100 Unit/mL Syringe SUBQ SCH (21:29)
== END 2017-01-21 01:44 | disposition admitted as inpatient to this hospital (09) | DRG 951 ==
LOC: EDBD 20:27 → SED 20:27 → OBSVTOIN 01-19 02:03 → MPC 01-19 02:03
PROVIDERS: ADMIT Internal Medicine; ATTEND Hospitalist
DX: R69 Illness, unspecified (principal)